=== PATIENT | female | born 1940 | race Caucasian/White ===

== ENCOUNTER 2017-08-26 10:00 | Outpatient (CLI) | payer MEDICARE, OTHER | END 2017-08-26 10:01 | disposition home or self-care (01) | LOC: BICRAD 10:00 | PROVIDERS: ATTEND Nurse Practitioner Family | DX: M47.816 Spondylosis without myelopathy or radiculopathy, lumbar region (principal); I70.90 Unspecified atherosclerosis; M46.86 Other specified inflammatory spondylopathies, lumbar region | CPT/HCPCS: 72100 ==

== ENCOUNTER 2017-10-06 13:54 | Outpatient (CLI) | payer MEDICARE, OTHER | END 2017-10-06 13:55 | disposition home or self-care (01) | LOC: BICMAMMO 13:54 | PROVIDERS: ATTEND Family Medicine | DX: Z12.31 Encounter for screening mammogram for malignant neoplasm of breast (principal); Z13.820 Encounter for screening for osteoporosis; M54.16 Radiculopathy, lumbar region; R92.1 Mammographic calcification found on diagnostic imaging of breast | CPT/HCPCS: 77063; 77067; 77080 ==

== ENCOUNTER 2017-10-11 12:12 | Outpatient (CLI) | payer MEDICARE, OTHER | END 2017-10-11 12:13 | disposition home or self-care (01) | LOC: BICMRI 12:12 | PROVIDERS: ATTEND Neurological Surgery | DX: M47.26 Other spondylosis with radiculopathy, lumbar region (principal); M48.061 Spinal stenosis, lumbar region without neurogenic claudication; M43.16 Spondylolisthesis, lumbar region; M47.22 Other spondylosis with radiculopathy, cervical region | CPT/HCPCS: 72141; 72148 ==

== ENCOUNTER 2018-04-26 10:00 | Inpatient (IN) | payer MEDICARE, OTHER ==
--- NOTE | 2018-04-27 11:40 | HP ---
HISTORY OF PRESENT ILLNESS: Ms. Garrison is back in the clinic following RIKY and ablation therapy that have not resulted in pain relief and she was wanting some more permanent relief. The patient states that she finished physical therapy a little while back and still does not have significant relief from her back pain. She states that she has limited walking about 100 yards and then she will just sit or bend forward if she needs to continue. Flexion of the lumbar spine offers some immediate relief of the leg discomfort bilaterally. REVIEW OF SYSTEMS: A 10-point review of systems has been completed and is negative other than stated above in the HPI. PAST MEDICAL HISTORY: Diabetes, hyperlipidemia, CAD- CABG, arthritis, depression, GERD, cystocele, rectocele, blood loss anemia, menopause, allergies , varicose veins, subdural hematoma in 2013, cataracts. PAST SURGICAL HISTORY: CABG by Dr. Duque/Emmanuel, bilateral tubal ligation, a dilation and curettage, hysterectomy, cataract surgery, colonoscopy, varicose veins, left femoral fracture. FAMILY HISTORY: Father is , diagnosed with hypertension, heart disease. Mother is , from cancer. SOCIAL HISTORY: The patient is a nonsmoker, does not use any other illicit drugs, does not drink alcohol. Currently lives alone, retired and , has 2 children. ALLERGIES: CEPHALEXIN, AMOXICILLIN, METFORMIN. PHYSICAL EXAMINATION: GENERAL: The patient is alert and oriented to person, place and time. Does not appear to be in any visible distress. HEENT: Head is normocephalic, atraumatic. Moist mucous membranes. Pupils are equal, round, reactive to light. Extraocular movements are intact. Hearing is intact. RESPIRATORY: Normal work of breathing on room air. CARDIAC: Regular rate and rhythm. Normal S1, S2. NEUROLOGIC: Gait and station is normal. MOTOR EXAM: There is no new weakness. The patient leans forward in about 15 degrees and walks with a cane, 5/5 strength bilateral iliopsoas, quadriceps, hamstrings, right TA and EHL. Sensory deficits bilaterally on anterior thighs when standing. Tender to palpation paraspinal muscles. NEUROLOGIC: Awake and alert. Cranial nerves II-XII are grossly intact. Speech is fluent, answers questions appropriately. IMAGING: MRI of the lumbar spine shows stenosis L3-L4 with lateral recess disease at L4-L5 and the spondylolisthesis L3-4. Flexion, extension x-rays show instability at L3-4. ASSESSMENT AND PLAN: Spondylolisthesis, lumbar stenosis. Dr. Alexander has offered surgery at L3-5 laminectomy with L3-4 T-lift.. INFORMED CONSENT: We have discussed indications, risks, benefits, alternatives , and expected results from surgery. The risks discussed included, but were not limited to bleeding, infection, CSF leak, nerve damage, weakness, incontinence, cauda equina injury, arachnoiditis, paralysis, ventilator dependence with trach dependence, loss of vision, hardware replacement, cardiopulmonary complications of anesthesia or . Long-term complications discussed included, but were not limited to degradation of surrounding disks and the need for further surgery. The patient states she understands the risks and is willing to move forward with surgery. CARMEN
[2018-04-29] MEDS ORDERED: Levofloxacin 500 mg/D5W 100 ml Premix Bag ONE (06:06)
[2018-04-29] MEDS ORDERED: Clindamycin/D5W 900 mg/50 ml Premix Bag ONE (06:06)
[2018-04-29] MEDS ORDERED: Sodium Chloride 0.9% 20 ML ONE (06:18)
[2018-04-29] MEDS ORDERED: Thrombin 5000 UNITS/5 ML VIAL ONE (06:18)
[2018-04-29] MEDS ORDERED: Bupivacaine HCl 0.5%/Epinephrine 1:200,000/PF 30 ml Vial ONE (06:18)
[2018-04-29] MEDS ORDERED: Fentanyl 100 MCG/2 ML VIAL ONE ×3 (06:39→11:23)
[2018-04-29] MEDS ORDERED: Hydrocortisone Sod Succ/PF 250 mg/2 ml Vial ONE (06:53)
[2018-04-29] MEDS ORDERED: Hydrocortisone Sod Succ/PF 100 mg/2 ml Vial ONE (06:54)
[2018-04-29] MEDS ORDERED: PHENYLEPHRINE-NS 100 MCG/ML 10 ML SYRINGE ONE ×2 (08:30→13:52)
[2018-04-29] MEDS ORDERED: Promethazine 25 MG TAB PO PRN (11:12)
[2018-04-29] MEDS ORDERED: Mag-Al 1200 mg/1200 mg/30 ML UDCUP PO PRN (11:12)
[2018-04-29] MEDS ORDERED: Milk Of Magnesia 30 ML UDCUP PO PRN (11:12)
[2018-04-29] MEDS ORDERED: diphenhydrAMINE 25 MG CAP PO PRN (11:12)
[2018-04-29] MEDS ORDERED: Zolpidem Tartrate 5 MG TAB PO PRN (11:12)
[2018-04-29] MEDS ORDERED: Acetaminophen/Codeine 30-300mg Tablet PO PRN (11:12)
[2018-04-29] MEDS ORDERED: diphenhydrAMINE 50 MG/ML VIAL IVP PRN (11:12)
[2018-04-29] MEDS ORDERED: Promethazine HCl 25 MG/ML VIAL IM PRN ×2 (11:12→11:18)
[2018-04-29] MEDS ORDERED: Bisacodyl 10 MG SUPP PR PRN (11:12)
[2018-04-29] MEDS ORDERED: Promethazine HCl 25 MG/ML VIAL SLOW IVP PRN (11:18)
[2018-04-29] MEDS ORDERED: Ondansetron HCl/PF 4 MG/2 ML Vial IVP PRN (11:18)
--- NOTE | 2018-04-29 11:20 | OP ---
DATE OF PROCEDURE: 04/29/2018 SURGEON: Joy Alexander M.D. PEDIATRIC UROLOGIST: Doris Browning PA-C. PREOPERATIVE INDICATION: Treat pain, prevent neurological deterioration. PREOPERATIVE DIAGNOSES: Lumbar stenosis and lumbar lateral recess stenosis with neurogenic claudicat ion at L3-4 and L4-5, spondylolisthesis at L4-5. POSTOPERATIVE DIAGNOSIS: Lumbar stenosis and lumbar lateral recess stenosis with neurogenic claudica tion at L3-4 and 5 spondylolisthesis at L4-5. OPERATIVE PROCEDURE: Decompressive laminectomy, medial facetectomy, foraminotomy for decompression L 3-4 and L4-L5, transforaminal lumbar interbody arthrodesis, placement of intervertebral biomechanical device and pedicle screw and mikala instrumentation L3-L4, posterior lateral arthrodesis L3-L4, local m orselized autograft, morselized Allograft. DRAIN NUMBER: Zero. DRAIN TYPE: None. MEDICATIONS: Clindamycin 900 mg IV and Levaquin 500 mg IV. OPERATIVE DICTATION: The patient was brought to the operating room. General endotracheal anesthesia was induced. The patient was positioned prone on the Charles frame with appropriate padding for sylvia st and hips. A lateral fluoro radiograph was used to plan our incision. The lumbar skin was sterile ly prepped and draped. We opened with a 10 blade knife and controlled bleeding with bipolar and mono polar cautery. We used monopolar cautery to dissect through subcutaneous tissues to the thoracodorsa l fascia. We incised the fascia in the midline and we reflected the paraspinal muscles off the spino us process and lamina at L3, L4, and L5. A self-retaining retractor was placed and a lateral fluoro radiograph confirmed the levels upon which we were operating. We then carried our dissection over th e L2-3 and L3-4 facet joints to identify the transverse processes of L3 and L4 bilaterally. We irrig ated with bacitracin irrigation. We used an Adson rongeur to remove the spinous processes of L3 and L4 and using Kerrison rongeur to fashion a laminectomy at L3-4, L4-5. We widened our laminectomy def ect until we had completely decompressed the dura. We were lateral enough on either side to be flush ed with the pedicles by performing medial facetectomies. We performed foraminotomies over the exitin g L4 and L5 nerve roots. When our decompression was secured, we turned our attention to arthrodesis at the site of spondylolisthesis. We removed the entire facet joint at L3-4 on the right side. With this newfound access through the f oramen, we entered the intervertebral space. We removed disk contents using curettes and rongeurs. We used a bone rasp to prepare the endplates for grafting and to measure the height of the interspace to 10 mm. A 10 mm PEEK intervertebral graft was brought into the field. Laminectomy bone was clean ed of its soft tissue attachments on the back table, morselized and added to demineralized bone matri x to form our fusion substrate. The substrate was packed into the PEEK graft and the interbody devic e was advanced into the interspace under radiographic guidance to the appropriate depth. We turned o ur attention to pedicle screw placement. Using bony anatomic landmarks, palpation of the medial portion of the pedicles, and a lateral fluoro radiograph as a guide, we chose entry points for pedicle screws at L3 and L4. Using a bone awl, we a dvanced it through the pedicles into the vertebral bodies. We tapped the trajectories and then probe d them. We found them completely encased in bone. We placed 6.5 mm diameter screws through the pedi cles into the vertebral bodies at L3 and L4. A 360 degree image set was generated with our isocentri c C-arm. This confirmed adequate positioning of our pedicle screw instrumentation. We then irrigate d copiously with bacitracin irrigation. We placed rods down in the screw heads and caps over the mikala s. We compressed across the interspace to keep the interbody graft in place and then tightened the c aps using a [id number] mechanism to adequate tightness. We decorticated the transverse pr ocesses of L3 and L4 bilaterally and over the decorticated bone we left demineralized bone matrix and morselized autograft as our posterolateral fusion substrate. We then controlled bleeding with gentl e bipolar cautery. We infused local anesthetic in the paraspinal muscles. We closed the wound in an atomic layers and applied a sterile dressing. This was a clean case with no contamination.
[2018-04-29] MEDS ORDERED: Ondansetron PF 4 MG/2 ML Vial ONE ×2 (11:26→13:52)
[2018-04-29 12:52] VITALS: BMI 32.5
[2018-04-29] MEDS: Acetaminophen/Codeine 30-300mg Tablet PO PRN ×2 (13:14→17:59)
[2018-04-29] MEDS: tiZANidine HCl 4 MG TAB PO PRN (13:15)
[2018-04-29] MEDS: Morphine 2 MG/ML SYRINGE SLOW IVP PRN ×3 (13:48→17:04)
[2018-04-29] MEDS ORDERED: PROPOFOL 200 MG/20 ML VIAL ONE (13:52)
[2018-04-29] MEDS ORDERED: Dexamethasone 20 MG/5 ML VIAL ONE (13:52)
[2018-04-29] MEDS ORDERED: Lidocaine 1% PF 5 ML VIAL ONE (13:52)
[2018-04-29] MEDS ORDERED: Glycopyrrolate 0.2 MG/ML 5 ML SYRINGE ONE (13:52)
[2018-04-29] MEDS ORDERED: ePHEDrine/0.9% NaCl/PF SYRINGE 50 mg/10 ml ONE (13:52)
[2018-04-29] MEDS ORDERED: Clindamycin/D5W 900 MG in Premix Bag 1 BAG IVPB SCH (14:00)
[2018-04-29] MEDS: Polyethylene Glycol OPTH DROP 15 ML BOT EA EYE SCH ×2 (14:50→17:57)
[2018-04-29] MEDS: Clindamycin/D5W 900 MG in Premix Bag 1 BAG IVPB SCH ×2 (14:50→20:35)
--- NOTE | 2018-04-29 16:00 | PDOC.PN ---
- Subjective Encounter Start Date: 04/29/18 Encounter Start Time: 16:00 Subjective: no sob or chest pain or palp -: just had some liq post op -: c/o pain in the lower back operated area - Objective MAR Reviewed: Yes Vital Signs & Weight: Vital Signs (12 hours) Temp Pulse Resp BP Pulse Ox 04/29/18 12:15 97.0 F L 73 18 150/70 H 98 Weight Weight 195 lb 3.2 oz Additional Labs: Accuchecks 04/29/18 06:18 POC Glucose 146 H Phys Exam - Physical Examination HEENT: PERRLA, sclera anicteric Neck: no JVD, supple Respiratory: no wheezing, no rales Cardiovascular: RRR, no significant murmur Gastrointestinal: soft, non-tender, no distention, positive bowel sounds Musculoskeletal: no edema, pulses present Neurological: non-focal, moves all 4 limbs Dx/Plan (1) S/P laminectomy Code(s): Z98.890 - OTHER SPECIFIED POSTPROCEDURAL STATES Status: Acute Comment: L3-4, 4-5, 04/29/2018 (2) CAD (coronary artery disease) Code(s): I25.10 - ATHSCL HEART DISEASE OF [place] CORONARY ARTERY W/O ANG PCTRS Status: Chronic Qualifiers: Coronary Disease-Associated Artery/Lesion type: bypass graft [place] vs. transplanted heart: [place] heart Associated angina: without angina Qualified Code(s): I25.810 - Atherosclerosis of coronary artery bypass graft(s) without angina pectoris (3) CKD (chronic kidney disease) stage 3, GFR 30-59 ml/min Code(s): N18.3 - CHRONIC KIDNEY DISEASE, STAGE 3 (MODERATE) Status: Chronic (4) DM2 (diabetes mellitus, type 2) Status: Chronic Qualifiers: Diabetes mellitus nursing home insulin use: with terminal press operator use Diabetes mellitus complication status: with unspecified complications Qualified Code(s) : E11.8 - Type 2 diabetes mellitus with unspecified complications; Z79.4 - residential (current) use of insulin (5) Dyslipidemia Code(s): E78.5 - HYPERLIPIDEMIA, UNSPECIFIED Status: Chronic (6) HTN (hypertension) Code(s): I10 - ESSENTIAL (PRIMARY) HYPERTENSION Status: Chronic Qualifiers: Hypertension type: essential hypertension (7) Macrocytic anemia Code(s): D53.9 - NUTRITIONAL ANEMIA, UNSPECIFIED Status: Chronic - Plan post op recovering well -: continue levemir dose from am, is still groggy may not eat much tonight -: on lopressor, pitavastatin, cozaar -: pain meds per nsx adv -: PT/OT to mobilize per nsx adv, will f/u * . Review of Systems - Medications/Allergies Allergies/Adverse Reactions: Allergies Allergy/AdvReac Type Severity Reaction Status Date / Time amoxicillin [Amoxicillin] Allergy Mild Rash Verified 04/26/18 10:20 cephalexin [Cephalexin] Allergy Mild Rash Verified 04/26/18 10:20 darifenacin hydrobromide Allergy LEG CRAMPS Verified 04/26/18 10:20 [From Enablex] metformin Allergy severe Verified 04/26/18 10:20 diarrhea Penicillins Allergy Verified 04/29/18 13:00 solifenacin [From Vesicare] Allergy Verified 04/26/18 10:20 tolterodine tartrate Allergy LEG CRAMPS Verified 04/26/18 10:20 [From Detrol] Hydralazine IV AdvReac Uncoded 04/26/18 10:20 Medications: Current Medications Acetaminophen (Tylenol) 650 mg PO Q4H PRN PRN Reason: Headache/Fever or Pain 1-3 Acetaminophen/Codeine Phosphate (Tylenol #3) 1 tab PO Q3H PRN PRN Reason: Mild Pain (1-3) 2ND LINE Acetaminophen/Codeine Phosphate (Tylenol #3) 2 tab PO Q3H PRN PRN Reason: Moderate Pain (4-6) Last Admin: 04/29/18 13:14 Dose: 2 tab Al Hydroxide/Mg Hydroxide (Maalox) 30 ml PO Q4H PRN PRN Reason: Indigestion Bisacodyl (Dulcolax) 10 mg MI Q12H PRN PRN Reason: Constipation Coenzyme Q10 (Coenzyme Q10) 100 mg PO BID [facility] Diphenhydramine HCl (Benadryl) 25 mg IVP Q6H PRN PRN Reason: Itching Diphenhydramine HCl (Benadryl) 25 mg PO Q6H PRN PRN Reason: Itching Sodium Chloride (Normal Saline 0.9%) 1,000 mls @ 75 mls/hr IV .[id number] [facility]RAVIND Clindamycin Phosphate/Dextrose (900 mg/ Device) 50 mls @ 100 mls/hr IVPB Q8HR [facility] Stop: 04/29/18 22:29 Last Admin: 04/29/18 14:50 Dose: 50 mls Insulin Glargine 58 units/ (Miscellaneous Medication) 0.58 mls @ 0 mls/hr SC QAM [facility] Levofloxacin (Levaquin) 500 mg PO 0600 [facility] Stop: 05/10/18 06:01 Losartan Potassium (Cozaar) 25 mg PO QAM [facility] Magnesium Hydroxide (Milk Of Magnesium) 30 ml PO Q12H PRN PRN Reason: Constipation Metoprolol Tartrate (Lopressor) 50 mg PO BID [facility] Morphine Sulfate (Morphine) 2 mg SLOW IVP Q1H PRN PRN Reason: Moderate Breakthrough Pain Last Admin: 04/29/18 14:58 Dose: 2 mg Dulaglutide [ (Trulicity] 1.5 Mg) 1 each SC Q7D@0900 [facility] Icosapent Ethyl [ (Vascepa] Tab) 2 each PO BID [facility] Pitavastatin Calcium ([Livalo] 1 Tab) 1 each PO HS [facility] Promethazine HCl (Phenergan) 12.5 mg PO Q4H PRN PRN Reason: Nausea/Vomiting Promethazine HCl (Phenergan) 12.5 mg IM Q4H PRN PRN Reason: Nausea/Vomiting Propylene Glycol (Systane Opth Drop 15ml Bot) 1 drop EA EYE QID [facility] Last Admin: 04/29/18 14:50 Dose: 1 drop Sodium Chloride (Flush - Normal Saline) 10 ml IVF PRN PRN PRN Reason: Saline Flush Last Admin: 04/29/18 13:47 Dose: 10 ml Tizanidine HCl (Zanaflex) 4 mg PO Q6H PRN PRN Reason: Muscle Spasm Last Admin: 04/29/18 13:15 Dose: 4 mg Zolpidem Tartrate (Ambien) 5 mg PO HSPRN PRN PRN Reason: Insomnia
[2018-04-29] MEDS: Sodium Chloride 0.9% 1,000 ML IV SCH (18:29)
[2018-04-29] MEDS: Ubidecarenone 50 MG CAP PO SCH (20:36)
[2018-04-29] MEDS: Metoprolol Tartrate 25 MG TAB PO SCH (20:38)
[2018-04-29] MEDS ORDERED: Dextrose 50% Abboject 50 ML SYRINGE IVP PRN (20:40)
[2018-04-29] MEDS ORDERED: Insulin Regular 300 UNITS/3 ML VIAL SC PRN (20:40)
[2018-04-29] MEDS ORDERED: Dextrose 5% in Water 1,000 ML IV PRN (20:40)
[2018-04-29] MEDS ORDERED: Insulin Glargine 45 UNITS in Pre-Filled Syringe 1 EACH SC SCH (21:00)
[2018-04-29] MEDS ORDERED: PITAVASTATIN CALCIUM PO SCH (21:00)
[2018-04-29] MEDS ORDERED: ICOSAPENT ETHYL PO SCH (21:00)
[2018-04-29] MEDS ORDERED: Non-Formulary Item 1 EACH (Levemir Flexpen [Levemir Flexpen] 45 UNIT) SC SCH (21:00)
[2018-04-29] MEDS ORDERED: LEVEMIR 100 UNIT/ML SC SCH (22:45)
[2018-04-29] MEDS ORDERED: Dulaglutide [Trulicity] 1.5 MG SC SCH (23:00)
[2018-04-30] MEDS: Sodium Chloride 0.9% 1,000 ML IV SCH ×2 (00:46→21:32)
[2018-04-30] MEDS ORDERED: Temazepam 15 MG CAP PO PRN (00:46)
[2018-04-30] MEDS: Polyethylene Glycol OPTH DROP 15 ML BOT EA EYE SCH ×5 (00:47→21:24)
[2018-04-30] MEDS: Acetaminophen/Codeine 30-300mg Tablet PO PRN ×2 (02:16→06:39)
[2018-04-30] MEDS: tiZANidine HCl 4 MG TAB PO PRN (06:46)
[2018-04-30] MEDS: HumaLOG 300 UNITS/3 ML VIAL SC PRN ×3 (06:52→16:22)
[2018-04-30] MEDS ORDERED: Insulin Glargine 58 UNITS in Pre-Filled Syringe 1 EACH SC SCH (09:00)
[2018-04-30] MEDS ORDERED: Losartan 25 MG TAB PO SCH (09:00)
[2018-04-30] MEDS ORDERED: INSULIN DETEMIR SC SCH (09:00)
[2018-04-30] MEDS: LEVEMIR 100 UNIT/ML SC SCH ×2 (09:33→21:23)
[2018-04-30] MEDS: Ubidecarenone 50 MG CAP PO SCH ×2 (09:33→21:22)
--- NOTE | 2018-04-30 09:57 | CON ---
DATE OF CONSULTATION: 04/30/2018 Ms. Garrison is doing reasonably well postoperatively. Her progress is quite slow given her age, medic al comorbidities, but seems to be reasonably on track. Currently, her systolic blood pressure is mar ginal at 98 and so physical therapy is holding off on ambulating her at this time and a fluid bolus i s underway. She was, however, able to walk some yesterday. Medicine is helping with her diabetes ma nagement with blood pressures. We will continue with mobilization and management of her medical issues through the weekend.
--- NOTE | 2018-04-30 11:25 | PDOC.PN ---
- Subjective Encounter Start Date: 04/30/18 Encounter Start Time: 08:15 Subjective: no sob, is eating her breakfast -: family at bedside -: didn't sleep well last night - Objective MAR Reviewed: Yes Vital Signs & Weight: Vital Signs (12 hours) Temp Pulse Resp BP Pulse Ox 04/30/18 08:00 98.1 F 82 12 94/55 L 98 04/30/18 04:20 97.9 F 82 16 102/62 98 04/30/18 00:33 98.2 F 90 16 108/64 96 04/30/18 00:16 97 Weight Weight 195 lb 3.2 oz I&O: 04/29/18 04/30/18 05/01/18 06:59 06:59 05:59 Intake Total 2736.25 Output Total 350 Balance 2386.25 Additional Labs: Accuchecks 04/30/18 04/30/18 04/29/18 05:36 00:25 21:14 POC Glucose 276 H 329 H 370 H 04/29/18 20:31 POC Glucose 366 H Phys Exam - Physical Examination HEENT: PERRLA, sclera anicteric Neck: no JVD, supple Respiratory: no wheezing, no rales Cardiovascular: RRR, no significant murmur Gastrointestinal: soft, non-tender, positive bowel sounds Musculoskeletal: no edema, pulses present Neurological: non-focal, moves all 4 limbs Dx/Plan (1) S/P laminectomy Code(s): Z98.890 - OTHER SPECIFIED POSTPROCEDURAL STATES Status: Acute Comment: L3-4, 4-5, 04/29/2018 (2) CAD (coronary artery disease) Code(s): I25.10 - ATHSCL HEART DISEASE OF [place] CORONARY ARTERY W/O ANG PCTRS Status: Chronic Qualifiers: Coronary Disease-Associated Artery/Lesion type: bypass graft [place] vs. transplanted heart: [place] heart Associated angina: without angina Qualified Code(s): I25.810 - Atherosclerosis of coronary artery bypass graft(s) without angina pectoris (3) CKD (chronic kidney disease) stage 3, GFR 30-59 ml/min Code(s): N18.3 - CHRONIC KIDNEY DISEASE, STAGE 3 (MODERATE) Status: Chronic (4) DM2 (diabetes mellitus, type 2) Status: Chronic Qualifiers: Diabetes mellitus fdc insulin use: with terminal superintendent use Diabetes mellitus complication status: with unspecified complications Qualified Code(s) : E11.8 - Type 2 diabetes mellitus with unspecified complications; Z79.4 - halfway (current) use of insulin (5) Dyslipidemia Code(s): E78.5 - HYPERLIPIDEMIA, UNSPECIFIED Status: Chronic (6) HTN (hypertension) Code(s): I10 - ESSENTIAL (PRIMARY) HYPERTENSION Status: Chronic Qualifiers: Hypertension type: essential hypertension (7) Macrocytic anemia Code(s): D53.9 - NUTRITIONAL ANEMIA, UNSPECIFIED Status: Chronic - Plan 250ml NS bolus, continue iv hydration after that until her sbp is >120 -: is back on home dose levemir and had one dose of trulicity yesterday -: gets diarrhea with lantus and may use home levemir -: hold lopressor and cozaar until BP improves -: to start amb with PT once sbp is >110. * . Limit benadry and high dose repeated narcotics to avoid hypotension and post op delerium. d/w family at bedside. Will need rehab or swing bed for dc plan Review of Systems - Medications/Allergies Allergies/Adverse Reactions: Allergies Allergy/AdvReac Type Severity Reaction Status Date / Time amoxicillin [Amoxicillin] Allergy Mild Rash Verified 04/26/18 10:20 cephalexin [Cephalexin] Allergy Mild Rash Verified 04/26/18 10:20 darifenacin hydrobromide Allergy LEG CRAMPS Verified 04/26/18 10:20 [From Enablex] metformin Allergy severe Verified 04/26/18 10:20 diarrhea Penicillins Allergy Verified 04/29/18 13:00 solifenacin [From Vesicare] Allergy Verified 04/26/18 10:20 tolterodine tartrate Allergy LEG CRAMPS Verified 04/26/18 10:20 [From Detrol] Hydralazine IV AdvReac Uncoded 04/26/18 10:20 Medications: Current Medications Acetaminophen (Tylenol) 650 mg PO Q4H PRN PRN Reason: Headache/Fever or Pain 1-3 Acetaminophen/Codeine Phosphate (Tylenol #3) 1 tab PO Q3H PRN PRN Reason: Mild Pain (1-3) 2ND LINE Acetaminophen/Codeine Phosphate (Tylenol #3) 2 tab PO Q3H PRN PRN Reason: Moderate Pain (4-6) Last Admin: 04/30/18 06:39 Dose: 2 tab Al Hydroxide/Mg Hydroxide (Maalox) 30 ml PO Q4H PRN PRN Reason: Indigestion Albuterol/Ipratropium (Duoneb) 3 ml NEB [id number] [facility] Last Admin: 04/29/18 23:14 Dose: 3 ml Bisacodyl (Dulcolax) 10 mg AR Q12H PRN PRN Reason: Constipation Coenzyme Q10 (Coenzyme Q10) 100 mg PO BID [facility] Last Admin: 04/30/18 09:33 Dose: 100 mg Dextrose/Water (Dextrose 50%) 25 gm IVP PRN PRN PRN Reason: HYPOGLYCEMIA PROTOCOL Diphenhydramine HCl (Benadryl) 25 mg IVP Q6H PRN PRN Reason: Itching Diphenhydramine HCl (Benadryl) 25 mg PO Q6H PRN PRN Reason: Itching Glucagon (Glucagon) 1 mg IM PRN PRN PRN Reason: HYPOGLYCEMIA PROTOCOL Sodium Chloride (Normal Saline 0.9%) 1,000 mls @ 75 mls/hr IV .[id number] [facility] Last Admin: 04/30/18 00:46 Dose: 1,000 mls Dextrose/Water (D5w) 1,000 mls @ 0 mls/hr IV INF PRN PRN Reason: HYPOGLYCEMIA PROTOCOL Sodium Chloride (Normal Saline 0.9%) 250 mls @ 999 mls/hr IV .Q16M [facility] Stop: 04/30/18 11:45 Insulin Human Lispro (Humalog) 0 units SC .MILD SLIDING SCALE PRN PRN Reason: Mild Correctional Scale Last Admin: 04/30/18 06:52 Dose: 4 unit Insulin Human Lispro (Humalog) 0 units SC .BEDTIME SLIDING SC PRN PRN Reason: Bedtime Correctional Scale Levofloxacin (Levaquin) 500 mg PO 0600 [facility] Stop: 05/10/18 06:01 Last Admin: 04/30/18 06:22 Dose: 500 mg Magnesium Hydroxide (Milk Of Magnesium) 30 ml PO Q12H PRN PRN Reason: Constipation Morphine Sulfate (Morphine) 2 mg SLOW IVP Q1H PRN PRN Reason: Moderate Breakthrough Pain Last Admin: 04/29/18 17:04 Dose: 2 mg Dulaglutide [ (Trulicity] 1.5 Mg) 1 each SC Q7D [facility] Last Admin: 04/29/18 22:57 Dose: 1 each Icosapent Ethyl [ (Vascepa] Tab) 2 each PO BID [facility] Pitavastatin Calcium ([Livalo] 1 Tab) 1 each PO HS [facility] Levemir (Insulin Detemir) Vial 100 Units/Ml 0 each SC HS [facility]RAVIND Levemir (Insulin Detemir) Vial 100 Units/Ml 0 each SC QAM [facility] Last Admin: 04/30/18 09:33 Dose: 1 each Promethazine HCl (Phenergan) 12.5 mg PO Q4H PRN PRN Reason: Nausea/Vomiting Promethazine HCl (Phenergan) 12.5 mg IM Q4H PRN PRN Reason: Nausea/Vomiting Propylene Glycol (Systane Opth Drop 15ml Bot) 1 drop EA EYE QID [facility] Last Admin: 04/30/18 09:32 Dose: 1 drop Sodium Chloride (Flush - Normal Saline) 10 ml IVF PRN PRN PRN Reason: Saline Flush Last Admin: 04/29/18 17:04 Dose: 10 ml Temazepam (Restoril) 15 mg PO HSPRN PRN PRN Reason: Insomnia Last Admin: 04/30/18 00:50 Dose: 15 mg Tizanidine HCl (Zanaflex) 4 mg PO Q6H PRN PRN Reason: Muscle Spasm Last Admin: 04/30/18 06:46 Dose: 4 mg Zolpidem Tartrate (Ambien) 5 mg PO HSPRN PRN PRN Reason: Insomnia
[2018-04-30] MEDS ORDERED: Sodium Chloride 0.9% 250 ML IV SCH (11:30)
[2018-04-30] MEDS: Metoprolol Tartrate 25 MG TAB PO SCH (13:33)
[2018-04-30] MEDS: Acetaminophen 325 MG TAB PO PRN (16:15)
[2018-05-01] MEDS: Sodium Chloride 0.9% 1,000 ML IV SCH ×2 (07:53→19:06)
[2018-05-01] MEDS: LEVEMIR 100 UNIT/ML SC SCH ×2 (08:58→20:33)
[2018-05-01] MEDS: Polyethylene Glycol OPTH DROP 15 ML BOT EA EYE SCH ×4 (08:59→20:33)
[2018-05-01] MEDS: Ubidecarenone 50 MG CAP PO SCH ×2 (08:59→20:32)
[2018-05-01] MEDS ORDERED: Promethazine HCl 25 MG/ML VIAL IVPB PRN (09:03)
[2018-05-01] MEDS ORDERED: Promethazine HCl 25 MG/ML VIAL SLOW IVP PRN (09:23)
--- NOTE | 2018-05-01 09:46 | PDOC.PN ---
- Subjective Encounter Start Date: 05/01/18 Encounter Start Time: 08:45 Subjective: c/o vomitingx1 and feeling nauseous -: no abd pain -: stood up with PT yesterday - Objective MAR Reviewed: Yes Vital Signs & Weight: Vital Signs (12 hours) Temp Pulse Resp BP Pulse Ox 05/01/18 07:42 98.4 F 110 H 14 102/59 L 94 L 05/01/18 06:50 95 05/01/18 06:47 107 H 20 95 05/01/18 04:00 98 F 90 16 104/55 L 94 L 05/01/18 01:49 CDT 102 H 18 93 L 05/01/18 00:00 98.5 F 95 16 105/60 93 L Weight Weight 195 lb 3.2 oz I&O: 04/30/18 05/01/18 05/02/18 07:59 06:59 06:59 Intake Total Output Total Balance Additional Labs: Accuchecks 05/01/18 04/30/18 04/30/18 06:06 20:53 15:42 POC Glucose 216 H 151 H 156 H 04/30/18 11:29 POC Glucose 197 H Phys Exam - Physical Examination HEENT: PERRLA, moist MMs Neck: no JVD, supple Respiratory: no wheezing, no rales Cardiovascular: RRR, no significant murmur Gastrointestinal: soft, non-tender, positive bowel sounds Musculoskeletal: pulses present Neurological: non-focal, moves all 4 limbs Psychiatric: A&O x 3 Dx/Plan (1) S/P laminectomy Code(s): Z98.890 - OTHER SPECIFIED POSTPROCEDURAL STATES Status: Acute Comment: L3-4, 4-5, 04/29/2018 (2) CAD (coronary artery disease) Code(s): I25.10 - ATHSCL HEART DISEASE OF [place] CORONARY ARTERY W/O ANG PCTRS Status: Chronic Qualifiers: Coronary Disease-Associated Artery/Lesion type: bypass graft [place] vs. transplanted heart: [place] heart Associated angina: without angina Qualified Code(s): I25.810 - Atherosclerosis of coronary artery bypass graft(s) without angina pectoris (3) CKD (chronic kidney disease) stage 3, GFR 30-59 ml/min Code(s): N18.3 - CHRONIC KIDNEY DISEASE, STAGE 3 (MODERATE) Status: Chronic (4) DM2 (diabetes mellitus, type 2) Status: Chronic Qualifiers: Diabetes mellitus nursing home insulin use: with nursing home use Diabetes mellitus complication status: with unspecified complications Qualified Code(s) : E11.8 - Type 2 diabetes mellitus with unspecified complications; Z79.4 - terminal superintendent (current) use of insulin (5) Dyslipidemia Code(s): E78.5 - HYPERLIPIDEMIA, UNSPECIFIED Status: Chronic (6) HTN (hypertension) Code(s): I10 - ESSENTIAL (PRIMARY) HYPERTENSION Status: Chronic Qualifiers: Hypertension type: essential hypertension (7) Macrocytic anemia Code(s): D53.9 - NUTRITIONAL ANEMIA, UNSPECIFIED Status: Chronic - Plan dm is better controlled -: hypotension is better -: PT to start ambulating as tolerated per nsx adv -: phenergan x1 dose, bowel regimen -: will need swing/rehab for dc plan * . continue home dose insulin regimen, off antihtn meds. D/w family at bedside. Review of Systems - Medications/Allergies Allergies/Adverse Reactions: Allergies Allergy/AdvReac Type Severity Reaction Status Date / Time amoxicillin [Amoxicillin] Allergy Mild Rash Verified 04/26/18 10:20 cephalexin [Cephalexin] Allergy Mild Rash Verified 04/26/18 10:20 darifenacin hydrobromide Allergy LEG CRAMPS Verified 04/26/18 10:20 [From Enablex] metformin Allergy severe Verified 04/26/18 10:20 diarrhea Penicillins Allergy Verified 04/29/18 13:00 solifenacin [From Vesicare] Allergy Verified 04/26/18 10:20 tolterodine tartrate Allergy LEG CRAMPS Verified 04/26/18 10:20 [From Detrol] Hydralazine IV AdvReac Uncoded 04/26/18 10:20 Medications: Current Medications Acetaminophen (Tylenol) 650 mg PO Q4H PRN PRN Reason: Headache/Fever or Pain 1-3 Last Admin: 04/30/18 16:15 Dose: 650 mg Acetaminophen/Codeine Phosphate (Tylenol #3) 1 tab PO Q3H PRN PRN Reason: Mild Pain (1-3) 2ND LINE Last Admin: 04/30/18 16:14 Dose: 1 tab Acetaminophen/Codeine Phosphate (Tylenol #3) 2 tab PO Q3H PRN PRN Reason: Moderate Pain (4-6) Last Admin: 04/30/18 06:39 Dose: 2 tab Al Hydroxide/Mg Hydroxide (Maalox) 30 ml PO Q4H PRN PRN Reason: Indigestion Albuterol/Ipratropium (Duoneb) 3 ml NEB [id number] [facility] Last Admin: 05/01/18 06:47 Dose: 3 ml Bisacodyl (Dulcolax) 10 mg OR Q12H PRN PRN Reason: Constipation Coenzyme Q10 (Coenzyme Q10) 100 mg PO BID [facility] Last Admin: 05/01/18 08:59 Dose: 100 mg Dextrose/Water (Dextrose 50%) 25 gm IVP PRN PRN PRN Reason: HYPOGLYCEMIA PROTOCOL Diphenhydramine HCl (Benadryl) 25 mg IVP Q6H PRN PRN Reason: Itching Diphenhydramine HCl (Benadryl) 25 mg PO Q6H PRN PRN Reason: Itching Glucagon (Glucagon) 1 mg IM PRN PRN PRN Reason: HYPOGLYCEMIA PROTOCOL Sodium Chloride (Normal Saline 0.9%) 1,000 mls @ 75 mls/hr IV .[id number] [facility] Last Admin: 05/01/18 07:53 Dose: Not Given Dextrose/Water (D5w) 1,000 mls @ 0 mls/hr IV INF PRN PRN Reason: HYPOGLYCEMIA PROTOCOL Insulin Human Lispro (Humalog) 0 units SC .MILD SLIDING SCALE PRN PRN Reason: Mild Correctional Scale Last Admin: 04/30/18 16:22 Dose: 2 unit Insulin Human Lispro (Humalog) 0 units SC .BEDTIME SLIDING SC PRN PRN Reason: Bedtime Correctional Scale Levofloxacin (Levaquin) 500 mg PO 0600 [facility] Stop: 05/10/18 06:01 Last Admin: 05/01/18 06:53 Dose: 500 mg Magnesium Hydroxide (Milk Of Magnesium) 30 ml PO Q12H PRN PRN Reason: Constipation Morphine Sulfate (Morphine) 2 mg SLOW IVP Q1H PRN PRN Reason: Moderate Breakthrough Pain Last Admin: 04/29/18 17:04 Dose: 2 mg Dulaglutide [ (Trulicity] 1.5 Mg) 1 each SC Q7D [facility] Last Admin: 04/29/18 22:57 Dose: 1 each Icosapent Ethyl [ (Vascepa] Tab) 2 each PO BID [facility] Pitavastatin Calcium ([Livalo] 1 Tab) 1 each PO HS [facility] Levemir (Insulin Detemir) Vial 100 Units/Ml 0 each SC HS [facility] Last Admin: 04/30/18 21:23 Dose: Not Given Levemir (Insulin Detemir) Vial 100 Units/Ml 0 each SC QAM [facility] Last Admin: 05/01/18 08:58 Dose: 1 each Promethazine HCl (Phenergan) 12.5 mg PO Q4H PRN PRN Reason: Nausea/Vomiting Promethazine HCl (Phenergan) 12.5 mg IM Q4H PRN PRN Reason: Nausea/Vomiting Promethazine HCl (Phenergan) 10 mg SLOW IVP PRN PRN PRN Reason: Nausea/Vomiting Stop: 05/01/18 12:00 Propylene Glycol (Systane Opth Drop 15ml Bot) 1 drop EA EYE QID [facility] Last Admin: 05/01/18 08:59 Dose: 1 drop Sodium Chloride (Flush - Normal Saline) 10 ml IVF PRN PRN PRN Reason: Saline Flush Last Admin: 04/29/18 17:04 Dose: 10 ml Temazepam (Restoril) 15 mg PO HSPRN PRN PRN Reason: Insomnia Last Admin: 04/30/18 00:50 Dose: 15 mg Tizanidine HCl (Zanaflex) 4 mg PO Q6H PRN PRN Reason: Muscle Spasm Last Admin: 04/30/18 06:46 Dose: 4 mg Zolpidem Tartrate (Ambien) 5 mg PO HSPRN PRN PRN Reason: Insomnia
[2018-05-01] MEDS: Acetaminophen 325 MG TAB PO PRN ×2 (10:56→20:33)
[2018-05-01 11:40] LABS: Lavender RECEIVED; Red RECEIVED
[2018-05-01 13:17] LABS: #Monocytes 0.9 thou/uL (0.11-0.59); #Neutrophils 5.6 thou/uL (1.40-6.50); %Eosinophils 0.6 % (0.0-10.0); %Lymphocytes 12.6 % (21.0-51.0); %Monocytes 11.6 % (0.0-10.0); %Neutrophils 75.1 % (42.0-75.0); Hemoglobin 9.3 g/dL (12.0-16.0); Mean Corpuscular Hemoglobin 33.7 pg (27.0-31.0); Platelet Count 183 thou/uL (130-400); RBC Distribution Width 12.7 % (11.5-14.5); Red Blood Cell (RBC) Count 2.76 mill/uL (4.20-5.40); White Blood Cell (WBC) Count 7.5 thou/uL (4.8-10.8)
[2018-05-01 13:30] LABS: ALT (SGPT) 22 U/L (8-55); AST (SGOT) 40 U/L (5-34); Albumin 3.1 g/dL (3.4-4.8); Alkaline Phosphatase 87 U/L (40-150); Anion Gap 15 mmol/L (10-20); BUN (Urea Nitrogen) 18 mg/dL (9.8-20.1); Bilirubin, Total 0.4 mg/dL (0.2-1.2); Calc. Creatinine Clearance 37 mL/min (70-130); Calcium 7.9 mg/dL (7.8-10.44); Carbon Dioxide 18 mmol/L (23-31); Chloride 106 mmol/L (98-107); Estimated GFR-MDRD 29; Glucose 212 mg/dL (83-110); Potassium 4.6 mmol/L (3.5-5.1); Protein, Total 6.1 g/dL (6.0-8.3); Sodium 134 mmol/L (136-145)
--- NOTE | 2018-05-01 19:20 | CON ---
DATE OF CONSULTATION: 05/01/2018 HISTORY OF PRESENT ILLNESS: Ms. Garrison is a woman who on 04/29/2018 underwent a laminectomy. She was vomiting this morning, received Phenergan and then became quite somnolent, was transferred to the Intermediate Care Unit. I was consulted because of her arrival in the Intermediate Care Unit. PAST MEDICAL HISTORY: 1. Remarkable for diabetes. 2. Lipid disorder. 3. Coronary artery bypass grafting in the past. 4. Arthritis. 5. Reflux disease. 6. History of cystocele and rectocele. 7. History of subdural hematoma in 2013. 8. History of tubal ligation. 9. Status post hysterectomy. 10. History of cataract surgery. 11. Varicose vein surgery in the past. 12. History of femur fracture in the past. FAMILY HISTORY: Positive for vascular disease, hypertension, and cancer. REVIEW OF SYSTEMS: Otherwise not accurately obtainable. ALLERGIES: There was an allergy reported to CEPHALOSPORIN, PENICILLIN, METFORMIN, PHENERGAN. SOCIAL HISTORY: She is nonsmoker and nondrinker. She is , has two children. PHYSICAL EXAMINATION: GENERAL: She is in no distress. Actually, when I saw her, she would awaken easily to touch. VITAL SIGNS: She is afebrile, heart rate is 110, respiratory rate 14, oximetry is 94 on 2 liters, blood pressure 132/70. HEAD AND NECK: Unremarkable. LUNGS: Clear. HEART: Regular rhythm. ABDOMEN: Soft and nontender. EXTREMITIES: Without clubbing, cyanosis, or edema. She moved all 4 extremities , but only slowly to command. She has not had a bowel movement she says since last . IMPRESSION: 1. Nausea and vomiting ? secondary to constipation versus pain medication. 2. Somnolence with Phenergan. This should be placed on her intolerance/ allergy list. By this afternoon, she should be awake enough to move back up to the surgical unit. 50 minute consult with 50% of time spent on unit coordinating care. CARMEN
[2018-05-01] MEDS: Docusate 100 MG CAP PO SCH (20:33)
--- NOTE | 2018-05-01 21:48 | PDOC.EVN ---
Event Note - Event Note Event Note: RN called - Temp 102.1. Will add blood cultures with CXR in AM.
[2018-05-02] MEDS: Acetaminophen 325 MG TAB PO PRN ×2 (00:50→11:49)
--- NOTE | 2018-05-02 07:28 | PRG ---
DATE OF SERVICE: 05/02/2018 I saw Marilee Garrison in the intermediate care unit bed this morning. She was transferred yesterday a fternoon after administration of Phenergan and resulted in some somnolence, from which she was hard t o arouse. Her vitals have been stable overnight and now she is awake and alert and talking appropria tely. She feels a heaviness and fatigue in her body, but she has good sensation and strength in the lower extremities. Her vitals now are stable. Fever has come down from 102.1 degrees Fahrenheit yes terday evening to 99.2 this morning. Blood pressures in the 120s. She is satting well on room air. I cannot find any motor deficits other than the deconditioning. Diffuse weakness that she has had f rom not being terribly active before the operation. There is no radiculopathic weakness that I can f ind. Today, we are going to have Ms. Garrison evaluated by our Medical and Critical Care teams, and if they feel she is safe for transfer back to the floor, then we will make that happen. We will have physica l therapy visit with her and start the process of having her evaluated for inpatient rehabilitation.
--- NOTE | 2018-05-02 09:11 | RAD ---
CHEST ONE VIEW: History: Fever. Comparison: September 2016 FINDINGS: New layering left pleural effusion. Left basilar airspace opacity. No pneumothorax. Right lung relati vely clear. IMPRESSION: New layering left effusion and basilar airspace opacity concerning for infection and peripneumonic ef fusion. Follow up recommended. POS: CET
[2018-05-02] MEDS ORDERED: Dexamethasone 4 mg/ml Vial SLOW IVP SCH (09:30)
[2018-05-02] MEDS: Polyethylene Glycol 3350 17 GM Packet PO SCH (10:10)
[2018-05-02] MEDS: Ubidecarenone 50 MG CAP PO SCH ×2 (10:11→20:25)
[2018-05-02] MEDS: Docusate 100 MG CAP PO SCH ×2 (10:12→20:26)
[2018-05-02] MEDS: Polyethylene Glycol OPTH DROP 15 ML BOT EA EYE SCH ×4 (10:17→20:26)
[2018-05-02] MEDS: HumaLOG 300 UNITS/3 ML VIAL SC PRN ×3 (11:50→20:29)
--- NOTE | 2018-05-02 12:17 | PDOC.PN ---
- Subjective Encounter Start Date: 05/02/18 Encounter Start Time: 08:00 Subjective: had fever overnight, no cough -: is alert and responds well to verbal questions -: had a bm this morning - Objective MAR Reviewed: Yes Vital Signs & Weight: Vital Signs (12 hours) Temp Pulse Resp BP Pulse Ox 05/02/18 08:00 98.3 F 109 H 16 115/51 L 100 05/02/18 07:34 95 05/02/18 07:32 110 H 18 95 05/02/18 04:00 99.2 F 96 18 125/49 L 96 Weight Weight 197 lb 8.547 oz I&O: 05/01/18 05/02/18 05/03/18 06:59 06:59 06:59 Intake Total 1380 Output Total 500 Balance 880 Result Diagrams: 05/01/18 10:33 05/01/18 10:33 Additional Labs: Accuchecks 05/02/18 05/02/18 05/01/18 11:32 05:28 20:32 POC Glucose 237 H 133 H 157 H 05/01/18 05/01/18 17:20 10:20 POC Glucose 147 H 240 H Phys Exam - Physical Examination HEENT: PERRLA, moist MMs Neck: no JVD, supple Respiratory: no wheezing, no rales Cardiovascular: RRR, no significant murmur Gastrointestinal: soft, non-tender, positive bowel sounds Musculoskeletal: no edema, pulses present Neurological: non-focal, moves all 4 limbs Psychiatric: normal affect, A&O x 3 Dx/Plan (1) S/P laminectomy Code(s): Z98.890 - OTHER SPECIFIED POSTPROCEDURAL STATES Status: Acute Comment: L3-4, 4-5, 04/29/2018 (2) CAD (coronary artery disease) Code(s): I25.10 - ATHSCL HEART DISEASE OF [place] CORONARY ARTERY W/O ANG PCTRS Status: Chronic Qualifiers: Coronary Disease-Associated Artery/Lesion type: bypass graft [place] vs. transplanted heart: [place] heart Associated angina: without angina Qualified Code(s): I25.810 - Atherosclerosis of coronary artery bypass graft(s) without angina pectoris (3) CKD (chronic kidney disease) stage 3, GFR 30-59 ml/min Code(s): N18.3 - CHRONIC KIDNEY DISEASE, STAGE 3 (MODERATE) Status: Chronic (4) DM2 (diabetes mellitus, type 2) Status: Chronic Qualifiers: Diabetes mellitus nursing home insulin use: with nursing home use Diabetes mellitus complication status: with unspecified complications Qualified Code(s) : E11.8 - Type 2 diabetes mellitus with unspecified complications; Z79.4 - termite technician (current) use of insulin (5) Dyslipidemia Code(s): E78.5 - HYPERLIPIDEMIA, UNSPECIFIED Status: Chronic (6) HTN (hypertension) Code(s): I10 - ESSENTIAL (PRIMARY) HYPERTENSION Status: Chronic Qualifiers: Hypertension type: essential hypertension (7) Macrocytic anemia Code(s): D53.9 - NUTRITIONAL ANEMIA, UNSPECIFIED Status: Chronic - Plan encourage po intake -: dc iv fluids, cxr reviewed -: is on levaquin -: PT to mobilize as tolerated -: may tx to medsur floor * . restart steroids, home meds on computer donot show her to be on steroids, office notes do. will need swing bed for dc plan. encourage po intake, home dose insulin may start antihtn meds if sbp is consistently above 130 x 3. Review of Systems - Medications/Allergies Allergies/Adverse Reactions: Allergies Allergy/AdvReac Type Severity Reaction Status Date / Time amoxicillin [Amoxicillin] Allergy Mild Rash Verified 04/26/18 10:20 cephalexin [Cephalexin] Allergy Mild Rash Verified 04/26/18 10:20 darifenacin hydrobromide Allergy LEG CRAMPS Verified 04/26/18 10:20 [From Enablex] metformin Allergy severe Verified 04/26/18 10:20 diarrhea Penicillins Allergy Verified 04/29/18 13:00 solifenacin [From Vesicare] Allergy Verified 04/26/18 10:20 tolterodine tartrate Allergy LEG CRAMPS Verified 04/26/18 10:20 [From Detrol] Hydralazine IV AdvReac Uncoded 04/26/18 10:20 Medications: Current Medications Acetaminophen (Tylenol) 650 mg PO Q4H PRN PRN Reason: Headache/Fever or Pain 1-3 Last Admin: 05/02/18 11:49 Dose: 650 mg Al Hydroxide/Mg Hydroxide (Maalox) 30 ml PO Q4H PRN PRN Reason: Indigestion Albuterol/Ipratropium (Duoneb) 3 ml NEB [id number] [facility] Last Admin: 05/02/18 07:32 Dose: 3 ml Bisacodyl (Dulcolax) 10 mg GA Q12H PRN PRN Reason: Constipation Coenzyme Q10 (Coenzyme Q10) 100 mg PO BID [facility] [place] Last Admin: 05/02/18 10:11 Dose: 100 mg Dexamethasone (Decadron) 2 mg PO BID [facility] [place] Stop: 05/05/18 21:01 Dextrose/Water (Dextrose 50%) 25 gm IVP PRN PRN PRN Reason: HYPOGLYCEMIA PROTOCOL Docusate Sodium (Colace) 100 mg PO BID [facility] [place] Last Admin: 05/02/18 10:12 Dose: 100 mg Glucagon (Glucagon) 1 mg IM PRN PRN PRN Reason: HYPOGLYCEMIA PROTOCOL Sodium Chloride (Normal Saline 0.9%) 1,000 mls @ 75 mls/hr IV .[id number] [facility] [place] Last Admin: 05/01/18 19:06 Dose: 1,000 mls Dextrose/Water (D5w) 1,000 mls @ 0 mls/hr IV INF PRN PRN Reason: HYPOGLYCEMIA PROTOCOL Insulin Human Lispro (Humalog) 0 units SC .MILD SLIDING SCALE PRN PRN Reason: Mild Correctional Scale Last Admin: 05/02/18 11:50 Dose: 3 unit Insulin Human Lispro (Humalog) 0 units SC .BEDTIME SLIDING SC PRN PRN Reason: Bedtime Correctional Scale Levofloxacin (Levaquin) 500 mg PO 0600 [facility] [place] Stop: 05/10/18 06:01 Last Admin: 05/02/18 05:12 Dose: 500 mg Magnesium Hydroxide (Milk Of Magnesium) 30 ml PO Q12H PRN PRN Reason: Constipation Morphine Sulfate (Morphine) 2 mg SLOW IVP Q1H PRN PRN Reason: Moderate Breakthrough Pain Last Admin: 04/29/18 17:04 Dose: 2 mg Dulaglutide [ (Trulicity] 1.5 Mg) 1 each SC Q7D [facility] [place] Last Admin: 04/29/18 22:57 Dose: 1 each Icosapent Ethyl [ (Vascepa] Tab) 2 each PO BID [facility] Pitavastatin Calcium ([Livalo] 1 Tab) 1 each PO HS [facility] Levemir (Insulin Detemir) Vial 100 Units/Ml 0 each SC HS [facility] Last Admin: 05/01/18 20:33 Dose: Not Given Levemir (Insulin Detemir) Vial 100 Units/Ml 0 each SC QAM [facility] Last Admin: 05/01/18 08:58 Dose: 1 each Polyethylene Glycol (Miralax) 17 gm PO DAILY [facility] [place] Last Admin: 05/02/18 10:10 Dose: Not Given Propylene Glycol (Systane Opth Drop 15ml Bot) 1 drop EA EYE QID [facility] [place] Last Admin: 05/02/18 11:52 Dose: 1 drop Sodium Chloride (Flush - Normal Saline) 10 ml IVF PRN PRN PRN Reason: Saline Flush Last Admin: 04/29/18 17:04 Dose: 10 ml Tizanidine HCl (Zanaflex) 4 mg PO Q6H PRN PRN Reason: Muscle Spasm Last Admin: 04/30/18 06:46 Dose: 4 mg
[2018-05-02] MEDS: LEVEMIR 100 UNIT/ML SC SCH ×2 (12:32→20:29)
[2018-05-03] MEDS: HumaLOG 300 UNITS/3 ML VIAL SC PRN ×4 (07:01→21:40)
--- NOTE | 2018-05-03 07:06 | PRG ---
DATE OF SERVICE: 05/03/2018 Ms. Garrison is out of the Intermediate Care Unit and back in the neurosurgical floor. Her response to Phenergan was alarming and it should be added to her list of allergies. Ms. Garrison feels a bit better this morning than yesterday. We consulted case management and rehab sc reening to see if she is a good candidate for rehab. We have not heard back whether she was accepted . No other events were reported. The vital signs are stable. T-max yesterday was 100.3 degrees Fah renheit, but her fever curve is coming down nicely. On examination, there is good strength in the lo wer extremities and sensation as well. There are no new deficits. My plan for Ms. Garrison is to discharge to inpatient rehabilitation. Those arrangements can be made a ny time. We will confirm with the medical team that she is safe for discharge and then transfer her over.
[2018-05-03] MEDS: Docusate 100 MG CAP PO SCH ×2 (08:37→21:00)
[2018-05-03] MEDS: Polyethylene Glycol 3350 17 GM Packet PO SCH (08:37)
[2018-05-03] MEDS: Acetaminophen 325 MG TAB PO PRN (08:37)
[2018-05-03] MEDS: Dexamethasone 1 MG TAB PO SCH ×2 (08:37→20:59)
[2018-05-03] MEDS: Ubidecarenone 50 MG CAP PO SCH ×2 (08:37→21:00)
[2018-05-03] MEDS: LEVEMIR 100 UNIT/ML SC SCH ×2 (08:39→21:41)
--- NOTE | 2018-05-03 11:31 | PDOC.PN ---
- Subjective Encounter Start Date: 05/03/18 Encounter Start Time: 08:45 Subjective: oriented well, no sob -: ate her breakfast, no nausea cough or urinary burning/freq - Objective MAR Reviewed: Yes Vital Signs & Weight: Vital Signs (12 hours) Temp Pulse Resp BP Pulse Ox 05/03/18 07:23 97.5 F L 91 20 128/67 96 05/03/18 06:45 89 18 96 05/03/18 04:00 98.3 F 97 16 104/63 97 05/02/18 23:49 96 18 95 Weight Weight 197 lb 8.547 oz I&O: 05/02/18 05/03/18 05/04/18 06:59 06:59 06:59 Intake Total 1380 650 Output Total 500 Balance 880 650 Result Diagrams: 05/01/18 10:33 05/01/18 10:33 Additional Labs: Accuchecks 05/03/18 05/02/18 05/02/18 05:45 20:28 14:51 POC Glucose 348 H 423 H 379 H 05/02/18 11:32 POC Glucose 237 H Phys Exam - Physical Examination HEENT: PERRLA, moist MMs Neck: no JVD, supple Respiratory: no wheezing, no rales Cardiovascular: RRR, no significant murmur Gastrointestinal: soft, non-tender, positive bowel sounds Musculoskeletal: no edema, pulses present Neurological: non-focal, moves all 4 limbs Psychiatric: normal affect, A&O x 3 Dx/Plan (1) S/P laminectomy Code(s): Z98.890 - OTHER SPECIFIED POSTPROCEDURAL STATES Status: Acute Comment: L3-4, 4-5, 04/29/2018 (2) CAD (coronary artery disease) Code(s): I25.10 - ATHSCL HEART DISEASE OF [place] CORONARY ARTERY W/O ANG PCTRS Status: Chronic Qualifiers: Coronary Disease-Associated Artery/Lesion type: bypass graft [place] vs. transplanted heart: [place] heart Associated angina: without angina Qualified Code(s): I25.810 - Atherosclerosis of coronary artery bypass graft(s) without angina pectoris (3) CKD (chronic kidney disease) stage 3, GFR 30-59 ml/min Code(s): N18.3 - CHRONIC KIDNEY DISEASE, STAGE 3 (MODERATE) Status: Chronic (4) DM2 (diabetes mellitus, type 2) Status: Chronic Qualifiers: Diabetes mellitus fci insulin use: with fci use Diabetes mellitus complication status: with hyperglycemia Qualified Code(s): E11.65 - Type 2 diabetes mellitus with hyperglycemia; Z79.4 - long term care pharmacist (current) use of insulin (5) Dyslipidemia Code(s): E78.5 - HYPERLIPIDEMIA, UNSPECIFIED Status: Chronic (6) HTN (hypertension) Code(s): I10 - ESSENTIAL (PRIMARY) HYPERTENSION Status: Chronic Qualifiers: Hypertension type: essential hypertension (7) Macrocytic anemia Code(s): D53.9 - NUTRITIONAL ANEMIA, UNSPECIFIED Status: Chronic - Plan dm is uncontrolled sec to steroids -: suggest rapidly taper and dc steroids -: may dc anytime if accepted rehab/swing bed -: d/w son at bedside -: continue current meds including levaquin * . Review of Systems - Medications/Allergies Allergies/Adverse Reactions: Allergies Allergy/AdvReac Type Severity Reaction Status Date / Time amoxicillin [Amoxicillin] Allergy Mild Rash Verified 04/26/18 10:20 cephalexin [Cephalexin] Allergy Mild Rash Verified 04/26/18 10:20 darifenacin hydrobromide Allergy LEG CRAMPS Verified 04/26/18 10:20 [From Enablex] metformin Allergy severe Verified 04/26/18 10:20 diarrhea Penicillins Allergy Verified 04/29/18 13:00 solifenacin [From Vesicare] Allergy Verified 04/26/18 10:20 tolterodine tartrate Allergy LEG CRAMPS Verified 04/26/18 10:20 [From Detrol] Hydralazine IV AdvReac Uncoded 04/26/18 10:20 Medications: Current Medications Acetaminophen (Tylenol) 650 mg PO Q4H PRN PRN Reason: Headache/Fever or Pain 1-3 Last Admin: 05/03/18 08:37 Dose: 650 mg Al Hydroxide/Mg Hydroxide (Maalox) 30 ml PO Q4H PRN PRN Reason: Indigestion Albuterol/Ipratropium (Duoneb) 3 ml NEB [id number] [facility] Last Admin: 05/03/18 06:45 Dose: 3 ml Bisacodyl (Dulcolax) 10 mg ND Q12H PRN PRN Reason: Constipation Coenzyme Q10 (Coenzyme Q10) 100 mg PO BID [facility] Last Admin: 05/03/18 08:37 Dose: 100 mg Dexamethasone (Decadron) 2 mg PO BID [facility] Stop: 05/05/18 21:01 Last Admin: 05/03/18 08:37 Dose: 2 mg Dextrose/Water (Dextrose 50%) 25 gm IVP PRN PRN PRN Reason: HYPOGLYCEMIA PROTOCOL Docusate Sodium (Colace) 100 mg PO BID [facility] Last Admin: 05/03/18 08:37 Dose: 100 mg Glucagon (Glucagon) 1 mg IM PRN PRN PRN Reason: HYPOGLYCEMIA PROTOCOL Dextrose/Water (D5w) 1,000 mls @ 0 mls/hr IV INF PRN PRN Reason: HYPOGLYCEMIA PROTOCOL Insulin Human Lispro (Humalog) 0 units SC .MILD SLIDING SCALE PRN PRN Reason: Mild Correctional Scale Last Admin: 05/03/18 07:01 Dose: 5 unit Insulin Human Lispro (Humalog) 0 units SC .BEDTIME SLIDING SC PRN PRN Reason: Bedtime Correctional Scale Last Admin: 05/02/18 20:29 Dose: 5 unit Levofloxacin (Levaquin) 500 mg PO 0600 [facility] Stop: 05/10/18 06:01 Last Admin: 05/03/18 05:49 Dose: 500 mg Magnesium Hydroxide (Milk Of Magnesium) 30 ml PO Q12H PRN PRN Reason: Constipation Morphine Sulfate (Morphine) 2 mg SLOW IVP Q1H PRN PRN Reason: Moderate Breakthrough Pain Last Admin: 04/29/18 17:04 Dose: 2 mg Dulaglutide [ (Trulicity] 1.5 Mg) 1 each SC Q7D [facility] Last Admin: 04/29/18 22:57 Dose: 1 each Icosapent Ethyl [ (Vascepa] Tab) 2 each PO BID [facility] Pitavastatin Calcium ([Livalo] 1 Tab) 1 each PO HS [facility] Levemir (Insulin Detemir) Vial 100 Units/Ml 0 each SC HS [facility] Last Admin: 05/02/18 20:29 Dose: 1 each Levemir (Insulin Detemir) Vial 100 Units/Ml 0 each SC QAM [facility] Last Admin: 05/03/18 08:39 Dose: Not Given Polyethylene Glycol (Miralax) 17 gm PO DAILY [facility] Last Admin: 05/03/18 08:37 Dose: 17 gm Propylene Glycol (Systane Opth Drop 15ml Bot) 1 drop EA EYE QID [facility] Last Admin: 05/02/18 20:26 Dose: 1 drop Sodium Chloride (Flush - Normal Saline) 10 ml IVF PRN PRN PRN Reason: Saline Flush Last Admin: 04/29/18 17:04 Dose: 10 ml Tizanidine HCl (Zanaflex) 4 mg PO Q6H PRN PRN Reason: Muscle Spasm Last Admin: 04/30/18 06:46 Dose: 4 mg
[2018-05-03] MEDS: Polyethylene Glycol OPTH DROP 15 ML BOT EA EYE SCH ×4 (12:17→21:00)
--- NOTE | 2018-05-03 15:15 | ULT ---
BILATERAL LOWER EXTREMITY VENOUS DOPPLER ULTRASOUND: Date: 05/03/18 HISTORY: 78-year-old female with recent back surgery, immobility, leg edema. TECHNIQUE: [place] scale ultrasound with color flow and spectral Doppler imaging of the deep venous systems of the lower extremities was performed bilaterally. FINDINGS: There is good flow, compression, and augmentation noted in the common femoral, femoral, deep femoral, popliteal, posterior tibial, and greater saphenous veins on either side. IMPRESSION: No evidence of deep venous thrombosis in either lower extremity. POS: JU
[2018-05-04] MEDS: HumaLOG 300 UNITS/3 ML VIAL SC PRN (05:59)
--- NOTE | 2018-05-04 07:51 | PRG ---
DATE OF SERVICE: 05/04/2018 Ms. Garrison is 5 days out from decompression fusion lumbar spine. She is making slow, but steady prog ress. She remains on antibiotic therapy as we requested given her exposure to immunomodulatory medic ations and steroids in the past. I gave her a bit of Decadron yesterday. She felt generalized weakn ess and she had been on prednisone up until about a week before surgery. Now that she has gotten a s tress dose of steroids she does feel a little bit better, although her sugars are difficult to contro l, so we will try to wean that over the next 24-48 hours to off. Ms. Garrison had an ultrasound of her legs yesterday which was negative for DVT. Vital signs have been stable over the last 24 hours with no fever recorded. Lower extremity neurolog ical function is stable. The swelling in the legs is down since we Hep-Locked her IV. Our plan is for Ms. Garrison to move to inpatient rehabilitation. I would like a total of 2 weeks of a ntibiotic therapy after her operation, given her high risk for wound infection. I would like her to be tapered off of steroids in the next 24-48 hours and I will start the process myself. We will see her at the end of her inpatient rehabilitation admission.
[2018-05-04] MEDS ORDERED: Dexamethasone 1 MG TAB PO SCH (09:00)
[2018-05-04] MEDS: Ubidecarenone 50 MG CAP PO SCH (09:25)
[2018-05-04] MEDS: Docusate 100 MG CAP PO SCH (09:25)
[2018-05-04] MEDS: Polyethylene Glycol 3350 17 GM Packet PO SCH (09:25)
[2018-05-04] MEDS: Polyethylene Glycol OPTH DROP 15 ML BOT EA EYE SCH (09:29)
[2018-05-04] MEDS: LEVEMIR 100 UNIT/ML SC SCH (09:30)
[2018-05-04 16:17] VITALS: BP 146/79; TEMP 98.6
--- NOTE | 2018-05-05 04:05 | DIS ---
DATE OF ADMISSION: 04/29/2018 DATE OF DISCHARGE: 05/04/2018 DISCHARGE DIAGNOSES: 1. Diabetes mellitus type 2, insulin requiring. 2. Coronary artery disease, chronic and stable. 3. Status post lumbar laminectomy at L3 through L5. 4. Chronic kidney disease stage 3. 5. Hypertension, stable. 6. Chronic macrocytic anemia. PRIMARY SERVICE ATTENDING: Dr. Alexander. Lara for medical management. Dr. Gates for Pulmonary/Cr itical Care Service. PERTINENT LAB AND X-RAY FINDINGS: Creatinine 1.70 with estimated GFR of 29, AST 40, ALT of 22, alkal ine phosphatase 87, total bilirubin 0.4. CBC showed a white blood cell count of 7.5, hemoglobin 9.3, hematocrit 29, MCV 105, blood cultures x2 from 05/01/2018 showed no growth at 48 hours. Bilateral l ower extremity venous Doppler study dated 05/03/2018, negative for DVT. HOSPITAL COURSE: The patient was initially admitted under the Neurosurgical service after presenting with neurogenic claudication of the lumbar spine. The patient underwent decompression and laminecto my of the lumbar spine at L3 through L5. Postoperatively, the patient was managed for pain control a nd somnolence, likely iatrogenic and due to antiemetics. The patient had a code green situation due to somnolence and altered mentation, likely due to Phenergan exposure. The patient clinically stabil ized and was meeting appropriate milestones. The patient continued her regular chronic medication re gimen and was deemed an appropriate candidate for ongoing inpatient rehabilitation. The patient has been approved to transfer to [facility] inpatient rehabilitation and will transfer on 05/04/2018. DISCHARGE MEDICATIONS: 1. Dexamethasone 1 mg p.o. b.i.d. 2. Levaquin 500 mg p.o. daily x10 days. 3. Zanaflex 4 mg p.o. q.i.d. p.r.n. 4. Restasis ophthalmic drops 1 drop to each eye b.i.d. 5. Systane 1 drop to each eye topically q.i.d. 6. Livalo 4 mg p.o. at bedtime. 7. Cozaar 25 mg p.o. q.a.m. 8. Levemir 58 units subcutaneously q.a.m. and 45 units subcutaneously at bedtime. 9. Humalog insulin sliding scale. 10. Vascepa 1 gram 2 tabs p.o. b.i.d. FOLLOWUP: The patient to follow up with her primary care provider, Dr. Rajat Mendoza after discharg e from inpatient rehabilitation. The patient will follow up with Dr. Alexander with Neurosurgery Ser vice. CONDITION ON DISCHARGE: Fair. ACTIVITY: Ad romy. DIET: ADA. CODE STATUS: FULL. DISPOSITION: [facility] Inpatient rehabilitation on 05/04/2018.
== END 2018-05-04 17:22 | DRG 460 ==
LOC: SURG A 04-29 05:43 → SURG B 04-29 12:01 → IMCU/EMU 05-01 10:47 → SURG B 05-02 12:35
PROVIDERS: ADMIT Neurological Surgery; ATTEND Neurological Surgery
PROC: 0SG00AJ Fusion of Lumbar Vertebral Joint with Interbody Fusion Device, Posterior Approach, Anterior Column, Open Approach (ICD-10-PCS; principal; 2018-04-29)
PROC: 01NB0ZZ Release Lumbar Nerve, Open Approach (ICD-10-PCS; 2018-04-29)
DX: M43.16 Spondylolisthesis, lumbar region (principal); M48.062 Spinal stenosis, lumbar region with neurogenic claudication; E78.5 Hyperlipidemia, unspecified; I25.10 Atherosclerotic heart disease of native coronary artery without angina pectoris; M19.90 Unspecified osteoarthritis, unspecified site; F32.9 Major depressive disorder, single episode, unspecified; K21.9 Gastro-esophageal reflux disease without esophagitis; E11.22 Type 2 diabetes mellitus with diabetic chronic kidney disease; I12.9 Hypertensive chronic kidney disease with stage 1 through stage 4 chronic kidney disease, or unspecified chronic kidney disease; N18.3 Chronic kidney disease, stage 3 (moderate); D53.9 Nutritional anemia, unspecified; R11.2 Nausea with vomiting, unspecified; R40.0 Somnolence; T42.6X5A Adverse effect of other antiepileptic and sedative-hypnotic drugs, initial encounter; Y92.009 Unspecified place in unspecified non-institutional (private) residence as the place of occurrence of the external cause; Z79.4 Long term (current) use of insulin; Z95.1 Presence of aortocoronary bypass graft; Z82.49 Family history of ischemic heart disease and other diseases of the circulatory system; Z80.9 Family history of malignant neoplasm, unspecified; Z01.812 Encounter for preprocedural laboratory examination; M48.061 Spinal stenosis, lumbar region without neurogenic claudication
CPT/HCPCS: 36415; 36416; 71045; 76001; 80048; 80053; 85025; 85027; 85610; 85730; 87040; 93970; 94640; 94760; C1713; C1768; G8978-GP-CL; G8978-GP-CM; G8979-GP-CJ; G8979-GP-CK; G8987-GO-CL; G8988-GO-CJ; J0670; J1100; J1720; J1956; J2001; J2270; J2405; J2550; J2704; J3010; J3370; J3490; J7620; J8540

== ENCOUNTER 2018-04-26 10:04 | Outpatient (CLI) | payer MEDICARE, OTHER ==
[2018-04-26 11:18] LABS: Hemoglobin 11.6 g/dL (12.0-16.0); Mean Corpuscular Hemoglobin 33.9 pg (27.0-31.0); Platelet Count 231 thou/uL (130-400); RBC Distribution Width 12.4 % (11.5-14.5); Red Blood Cell (RBC) Count 3.43 mill/uL (4.20-5.40)
[2018-04-26 11:26] LABS: INR-International Normal Ratio 1.1; PTT 26.4 SEC (22.9-36.1); Prothrombin Time 14.2 SEC (12.0-14.7)
[2018-04-26 11:37] LABS: Anion Gap 14 mmol/L (10-20); BUN (Urea Nitrogen) 23 mg/dL (9.8-20.1); Calc. Creatinine Clearance 0 mL/min (70-130); Calcium 8.8 mg/dL (7.8-10.44); Carbon Dioxide 24 mmol/L (23-31); Chloride 104 mmol/L (98-107); Estimated GFR-MDRD 25; Glucose 292 mg/dL (83-110); Potassium 4.6 mmol/L (3.5-5.1); Sodium 137 mmol/L (136-145)
== END 2018-04-26 10:05 | disposition home or self-care (01) ==
LOC: LABBT 10:04
PROVIDERS: ATTEND Neurological Surgery
DX: Z01.812 Encounter for preprocedural laboratory examination (principal); M43.16 Spondylolisthesis, lumbar region; M48.061 Spinal stenosis, lumbar region without neurogenic claudication
CPT/HCPCS: 80048; 85027; 85610; 85730

== ENCOUNTER 2018-07-07 09:01 | Outpatient (CLI) | payer MEDICARE, OTHER ==
--- NOTE | 2018-07-07 11:18 | RAD ---
LUMBAR SPINE 2-3 VIEW SERIES: Date: 07/07/18 INDICATION: Low back pain. History of prior surgery, follow-up. FINDINGS: There is posterior fusion of L3 and L4. Grade I spondylolisthesis of L3 on L4 present. There is an in tervening disc space prosthesis at L3-4. No obvious perihardware lucency visualized with regard to th e bilateral pedicle screws and bilateral vertical interconnecting rods at the L3-4 segments. There is multilevel degenerative change of the lumbar spine. No acute compression deformity. Incidental note of atherosclerosis of the imaged aorta and there is arteriosclerosis seen within pelvic vasculature. IMPRESSION: Postoperative lumbar spine as above. POS: [facility]
== END 2018-07-07 09:02 | disposition home or self-care (01) ==
LOC: TBSIIMAG 09:01
PROVIDERS: ATTEND Neurological Surgery
DX: M51.36 Other intervertebral disc degeneration, lumbar region (principal); M48.061 Spinal stenosis, lumbar region without neurogenic claudication; M43.16 Spondylolisthesis, lumbar region; Z98.890 Other specified postprocedural states
CPT/HCPCS: 72100

== ENCOUNTER 2018-10-17 16:19 | Inpatient (IN) | payer MEDICARE, OTHER ==
[2018-10-17 17:54] LABS: #Basophils 0.1 thou/uL (0.0-0.2); #Eosinphils 0.5 thou/uL (0.0-0.7); #Lymphocytes 2.2 thou/uL (1.20-3.40); #Monocytes 0.5 thou/uL (0.11-0.59); #Neutrophils 5.2 thou/uL (1.40-6.50); %Eosinophils 5.4 % (0.0-10.0); %Lymphocytes 25.7 % (21.0-51.0); %Monocytes 6.3 % (0.0-10.0); %Neutrophils 61.6 % (42.0-75.0); Hemoglobin 10.5 g/dL (12.0-16.0); Mean Corpuscular HGB CONC 32.6 g/dL (32.0-36.0); Mean Corpuscular Hemoglobin 33.6 pg (27.0-31.0); Mean Platelet Volume 7.4 fL (7.4-10.4); Platelet Count 270 thou/uL (130-400); RBC Distribution Width 12.2 % (11.5-14.5); Red Blood Cell (RBC) Count 3.12 mill/uL (4.20-5.40); White Blood Cell (WBC) Count 8.4 thou/uL (4.8-10.8)
[2018-10-17 18:13] LABS: ALT (SGPT) 24 U/L (8-55); AST (SGOT) 32 U/L (5-34); Albumin 3.9 g/dL (3.4-4.8); Alkaline Phosphatase 141 U/L (40-150); Anion Gap 16 mmol/L (10-20); BUN (Urea Nitrogen) 63 mg/dL (9.8-20.1); Bilirubin, Total 0.2 mg/dL (0.2-1.2); CK (CPK) 274 U/L (29-168); Calc. Creatinine Clearance 0 mL/min (70-130); Calcium 9.1 mg/dL (7.8-10.44); Carbon Dioxide 19 mmol/L (23-31); Chloride 108 mmol/L (98-107); Estimated GFR-MDRD 13; Globulin 3.6 g/dL (2.4-3.5); Glucose 158 mg/dL (83-110); Potassium 6.3 mmol/L (3.5-5.1); Protein, Total 7.5 g/dL (6.0-8.3); Sodium 137 mmol/L (136-145)
--- NOTE | 2018-10-17 20:06 | RAD ---
Frontal radiograph chest: 10/17/2018 COMPARISON: 05/02/2018 HISTORY: Cough, chest pain FINDINGS: Lungs are clear. Stable midline sternotomy wires and mediastinal clips. Atherosclerotic promise cification of the aortic arch noted. IMPRESSION: No acute findings.
--- NOTE | 2018-10-17 20:30 | RAD ---
SINGLE LATERAL CHEST: Comparison: 10-17-18 Indication: Chest pain. FINDINGS: No pleural effusion is evident. There is multilevel spondylosis of the thoracic spine . There is part ial visualization of lumbar spinal instrumentation. There is post-surgical change of prior CABG. IMPRESSION: No acute abnormality. POS: [facility]
[2018-10-17 21:01] LABS: Lactic Acid 2.6 mmol/L (0.5-2.2)
[2018-10-17 21:57] LABS: Troponin I 0.011 ng/mL (< 0.028)
[2018-10-17 23:07] LABS: Bilirubin Negative (Negative); Blood, Urine Negative (Negative); Clarity CLEAR (Clear); Glucose, Urine (Dipstick) Negative (Negative); Leukocyte Small (Negative); Nitrite Negative (Negative); Protein, Urine (Dipstick) Negative (Neg-Trace); Specific Gravity, Urine 1.016 (1.002-1.036); Urobilinogen 0.2 mg/dL (0.2-1.0); pH, Urine 5.5 (5.0-9.0)
[2018-10-17 23:08] LABS: Bacteria/HPF 4+ HPF (None Seen); Hyaline Casts/LPF 0-3 HYALINE CAST LPF (0-3 Hyaline); RBC/HPF 0-3 HPF (0-3); Squamous Epithelial 0-3 HPF (0-3)
[2018-10-18 00:54] LABS: Anion Gap 17 mmol/L (10-20); BUN (Urea Nitrogen) 61 mg/dL (9.8-20.1); Calc. Creatinine Clearance 0 mL/min (70-130); Carbon Dioxide 18 mmol/L (23-31); Chloride 108 mmol/L (98-107); Estimated GFR-MDRD 15; Glucose 164 mg/dL (83-110); Sodium 138 mmol/L (136-145)
[2018-10-18 00:59] LABS: Troponin I Less than 0.010 ng/mL (< 0.028)
[2018-10-18] MEDS ORDERED: HYDROcodone/Chlorphen Polis 5 ML UDCUP PO SCH (01:45)
[2018-10-18] MEDS ORDERED: Dextrose 50% Abboject 50 ML SYRINGE SLOW IVP PRN (01:48)
[2018-10-18] MEDS ORDERED: Dextrose 5% in Water 1,000 ML IV PRN (01:48)
--- NOTE | 2018-10-18 05:45 | HP ---
CHIEF COMPLAINT: Cough. HISTORY OF PRESENT ILLNESS: The patient is an 78-year-old female, who reports about a month ago, she started developing some symptoms consistent with allergic rhinitis. She had some nasal congestion, started using lxrv-fcl-yyxrzyu Zyrtec ultimately , when symptoms persisted, she went to see Dr. Mendoza last week and he thought it was sinusitis, started on some antibiotics and an inhaler. She had a cough that persisted, productive of thick white or yellow sputum, persistent nasal congestion, drainage and postnasal drainage causing her a bad taste in her mouth and further cough. She had a stress test scheduled previously with Dr. Nava on Wednesday. She went through with that and has subsequently received a call that the stress test was good and that they did not believe she was having any problems with her heart. On Wednesday, she went to [facility], where she received two nebulizer treatments and steroid shot, but kept her on the same antibiotics, but changed the inhaler. She continued to cough to the point where she feels exhausted, completely worn out and has a significant headache. She has had some mild shortness of breath associated with this, but no fevers or chills. REVIEW OF SYSTEMS: The patient has had some heaviness in her chest and abdominal soreness and jaw soreness related to the cough. She had normal appetite. Normal bowel and bladder habits. All other systems were reviewed and all pertinent positives and negatives noted in the history of present illness. PAST MEDICAL HISTORY: Notable for coronary artery disease, type 2 diabetes with retinopathy, hyperlipidemia, GERD, arthritis, urge incontinence, iron deficiency anemia, polymyalgia rheumatica, allergic rhinitis, irritable bowel syndrome, hyperlipidemia, hypertension, and intermittent asthma. The patient has chronic kidney disease stage 3, followed by Dr. Chavez. PAST SURGICAL HISTORY: Bilateral tubal ligation, knee surgery, hysterectomy, coronary artery bypass graft, left knee replacement, lumbar decompression laminectomy at L3 through L5. FAMILY HISTORY: Father had heart disease and hypertension. Mother had hypertension and colon cancer. SOCIAL HISTORY: Nonsmoker and nondrinker. She is a . She is a full code and any of her children would be her surrogate decision makers for her should that be necessary. HOME MEDICATIONS: 1. Tramadol 50 mg q.6 hours p.r.n. 2. Metoprolol 50 mg p.o. b.i.d. with food. 3. Losartan 25 mg p.o. daily. 4. Humalog sliding scale. 5. Tresiba 48 units subcu daily. 6. Livalo 4 mg p.o. daily. 7. Systane eye drops p.r.n. 8. CoQ10 at 100 mg p.o. daily. 9. Restasis eye drops. 10. Bactrim DS one p.o. b.i.d. 11. Fluticasone inhaler one puff b.i.d. 12. Vascepa, dose not known. 13. Aspirin 325 daily. 14. Again, the patient was given a Solu-Medrol injection on 10/15. PHYSICAL EXAMINATION: VITAL SIGNS: Blood pressure 131/57, pulse 100, respirations 22, temperature 98.4, and O2 saturation 96% on 3 L. She was 89% on room air initially. GENERAL APPEARANCE: Age-appropriate female. She is in no distress. She is awake, alert, oriented, pleasant, and cooperative. She does have a persistent cough with some evidence of a bronchitic sounding cough. HEENT: PERRL. No OP lesions. NECK: Supple and symmetric. No lymphadenopathy, JVD, or carotid bruits. HEART: Regular rate and rhythm. No murmurs, gallops, or rubs. LUNGS: Clear to auscultation bilaterally, although she has a hard time with the exam, because every attempted deep breath results in a cough with a bit of a croup-type sound. ABDOMEN: Soft, nontender, and nondistended. Positive bowel sounds. No masses. No organomegaly. EXTREMITIES: Warm and dry. No cyanosis, clubbing, or edema. NEUROLOGIC: Intact. SKIN: Warm and dry. PSYCH: Normal affect and behavior. LABORATORY DATA: White count 8.4, hemoglobin 10.5, MCV is 103, and platelets 270. Sodium 137, potassium 6.3, chloride 108, CO2 is 19, BUN 63, creatinine 3.33, and glucose 158. Lactic acid was 2.6. CK is 274. BNP is 548. Urinalysis, 4+ bacteria, 4-6 white cells, small leukocyte esterase. DIAGNOSTIC DATA: Chest x-ray shows no acute findings. IMPRESSION AND PLAN: 1. Cough, unclear etiology, sounds like she may have some sinusitis causing persistent cough. We and will get a ct of her sinuses, give her some better cough suppressant to stay away from any additional steroids because of her diabetes. 2. Xicqf-qx-tzqiivf renal failure. The patient has stage 3 chronic kidney disease. Currently, her GFR is down to 13. I believe this is likely due to the fact that she has been on Bactrim. We will discontinue that and continue to monitor her renal function. She is also going to receive some degree of hydration. 3. Hyperkalemia due to the renal insufficiency. The patient has received significant hydration. Rechecking the potassium now. If it persist, we will need to be more aggressive in lowering it. 4. Chronic anemia, stable. 5. History of coronary artery disease. Continue usual home medications. 6. Slightly elevated BNP. This is above her usual baseline numbers, but she does not appear to have significant evidence of decompensated failure either with peripheral edema or pulmonary edema on chest x-ray. She recently had stress testing, which was unremarkable as well. 7. History of polymyalgia rheumatica, appears to be stable. 8. Hypertension. Continue losartan and metoprolol. Job ID: [id number] [facility]
[2018-10-18] MEDS ORDERED: HumaLOG 300 UNITS/3 ML VIAL ONE (06:00)
[2018-10-18] MEDS: HumaLOG 300 UNITS/3 ML VIAL SC PRN ×2 (06:09→11:08)
--- NOTE | 2018-10-18 08:09 | CT ---
PRELIMINARY REPORT/[facility]/EMERGENCY AFTER HOURS PROCEDURE: EXAM: CT Maxillofacial Without Contrast, Sinus EXAM DATE/TIME: 10/18/2018 2:03 AM CLINICAL HISTORY: 78 years old, female; Face pain; Patient HX: Er 1. Eval for sinusitis. PT C/O headache (pressure like ). PT also C/O difficulty breathing. TECHNIQUE: Imaging protocol: CT Maxillofacial without intravenous contrast. Focus on the sinuses. Coronal and sa gittal reformatted images were created and reviewed. COMPARISON: No relevant prior studies available. FINDINGS: Paranasal sinuses: Complete opacification of the right maxillary sinus and outflow tract with near co mplete opacification of the right anterior ethmoid air cells and opacified right frontal sinus. Minim al mucosal thickening in the left maxillary and right sphenoid sinuses. Orbits: Unremarkable. Nasal cavity/Septum: Unremarkable. Dental: Mild periapical lucency about the most posterior right maxillary molar with small defect tomasa g the floor of the maxillary sinus. Soft tissues: Unremarkable. Bones/joints: Unremarkable. IMPRESSION: Right-sided sinusitis. Thank you for allowing us to participate in the care of your patient. Dictated and Authenticated by: Fran Livingston MD 10/18/2018 4:14 AM Central Time ([place] & [place]) FINAL REPORT SINUS CT WITHOUT CONTRAST: Date: 10/18/18 HISTORY: Difficulty breathing. Headache. Evaluate for sinusitis. COMPARISON: None. FINDINGS: There is complete opacification of the right maxillary sinus, partial opacification of the right ethm oid air cells, and complete opacification of the right frontal sinus. There is abnormal hypoattenuati on extending into the right nasal cavity. There is soft tissue attenuation of the right ostiomeatal c omplex. There are no destructive or erosive changes in the left sinuses. There is a possible deminera lization versus dehiscence involving the medial right maxillary sinus. Periapical lucency involving a right maxillary molar tooth is identified, at the floor of the right maxillary sinus. IMPRESSION: This report is in agreement with the preliminary report by [facility]. 1. Right sinus disease as detailed above. There is erosion/demineralization involving the medial mar gin of the right maxillary sinus. There is abnormal soft tissue hypoattenuation of the right nasal ca vity. 2. Periapical lucency involving the right maxillary molar tooth as described above. POS: [facility]
[2018-10-18] MEDS ORDERED: Metoprolol Tartrate 50 MG TAB ONE (09:07)
[2018-10-18] MEDS ORDERED: Aspirin 325 MG TAB ONE (09:07)
[2018-10-18] MEDS: Aspirin 325 mg Enteric Coated Tablet PO SCH (09:13)
[2018-10-18] MEDS: Metoprolol Tartrate 50 MG TAB PO SCH ×2 (09:13→20:25)
[2018-10-18] MEDS: Losartan 25 MG TAB PO SCH (09:13)
--- NOTE | 2018-10-18 16:20 | CON ---
DATE OF CONSULTATION: REASON FOR CONSULTATION: Stage 3 chronic kidney disease, acute renal failure, and hyperkalemia. HISTORY OF PRESENT ILLNESS: This is a very pleasant 78-year-old female, who was admitted for hyperkalemia and acute renal failure. Her baseline creatinine was 1.2, which increased to more than 3.3. The patient was started on Bactrim recently. The patient denies any headache, numbness, tingling, or weakness. PAST MEDICAL HISTORY: Significant for hypertension, coronary artery disease, stage 4 chronic kidney disease, polymyalgia rheumatica, allergic rhinitis, irritable bowel syndrome, stage 3-4 chronic kidney disease, bilateral tubal ligation, knee surgery, hysterectomy, CABG, left knee replacement, lumbar decompression, laminectomy. FAMILY HISTORY: Negative for ESRD. ALLERGIES: REVIEWED. HOME MEDICATIONS: List reviewed. REVIEW OF SYSTEMS: A 12-point review of systems was performed and was negative except for positives noted above. GENERAL: HEAD: NECK: No swelling or lumps. NOSE: No epistaxis or discharge. EYES: No diplopia or pain. RESPIRATORY: CARDIOVASCULAR: GASTROINTESTINAL: /SEQUINS WINDER: MUSCULOSKELETAL: No joint pain. NEUROPSYCHIATIC SYSTEMS: No suicidal ideation. No ideation. SKIN: Denies any rash or ulcer. CONSTITUTIONAL: No fever or chills. OBJECTIVE: See above. Awake, alert, in no acute distress. VITAL SIGNS: Pulse 100, breathing 16, blood pressure 131/59. GENERAL APPEARANCE AND MENTAL STATUS: Fair. HEAD/NECK: Normocephalic. Atraumatic. EYES: EOMI. No deformity. EARS: Clear. No ulcers. NOSE: Intact. No lesions. MOUTH: Clear. No discharge. THROAT: Clear. No exudate. LUNGS: Clear. No crackles. CARDIAC: S1, S2. No rub. ABDOMEN: Benign. Bowel sounds positive. GENITALIA/RECTUM: Lofton absent. BACK/EXTREMITIES: Edema 0+. NEUROLOGICAL: Alert and motor intact. SKIN: LYMPHATICS: LABS: Reviewed. ASSESSMENT: 1. Acute kidney injury on chronic kidney disease. Continue gentle hydration. 2. Hypertension, stable. 3. Anemia, stable. 4. Hyperkalemia, improved. No indication for dialysis at this time. Job ID: [id number]
[2018-10-18 18:43] VITALS: BMI 30.8
--- NOTE | 2018-10-18 18:47 | PDOC.EVN ---
Event Note - Event Note Event Note: Same day follow up. Patient has ongoing paroxysms of cough. Reports allergies and sinus issues for a few weeks, with interval worsening in last one week despite trials of outpatient steroids, Bactrim. Not running fever, however, at home. Tender frontal and maxillary sinuses, postnasal drip present. CT sinuses noted. Multiple allergies complicate antibiotic options - will start doxycycline. Ordered gentle IVFs for one liter, check AML in context of CKD. Try scheduling nebs for bid (has q 4 prn) and scheduled cough medication qid. Ordered qhs snack, reports noctural hypoglycemia as a feature of her diabetes. Will request ENT opinion. Explained plan to patient and daughter at bedside. Questions answered. They are frustrated by extended ER hold time experienced. Concerns addressed at bedside.
[2018-10-18] MEDS: Sodium Chloride 0.9% 1,000 ML IV SCH (19:47)
[2018-10-18] MEDS: Albuterol Sulfate 2.5 mg/3 ml Neb NEB PRN (19:53)
[2018-10-18] MEDS: Atorvastatin Calcium 20 MG TAB PO SCH (20:25)
[2018-10-18] MEDS: guaiFENesin/Codeine Phosphate 200 mg/20 mg 10 ml UD Cup PO SCH (20:25)
[2018-10-18] MEDS ORDERED: Doxycycline 100 MG CAP PO SCH (21:00)
[2018-10-18] MEDS ORDERED: Sodium Chloride Nasal 15 GM TUBE EA NARE SCH (21:45)
[2018-10-18] MEDS ORDERED: guaiFENesin ER 600 MG TAB PO SCH (21:45)
[2018-10-18] MEDS: Clindamycin/D5W 900 MG in Premix Bag 1 BAG IVPB SCH (22:05)
[2018-10-18] MEDS: Acetaminophen 325 MG TAB PO PRN (22:48)
--- NOTE | 2018-10-19 03:41 | CON ---
DATE OF CONSULTATION: 10/18/2018 REASON FOR CONSULTATION: Sinusitis and cough. CONSULTING PHYSICIAN: Dr. Gardiner. HISTORY OF PRESENT ILLNESS: Ms. Garrison is an 78-year-old female, who has had a 1-month history of symptoms that progressively worsened, primarily nasal congestion, drainage, and cough as well as some facial pain. She has had previous history of sinus problems about twice a year that seemed to resolve with medications. She was seen about a week ago and started on Bactrim as well as an inhaler and then presented on Wednesday to the Urgent Care with persistent symptoms. She was given nebulizer treatments and her inhaler was changed but continued on the same antibiotics. She was now admitted for hyperkalemia and evidence of early onset of kidney failure, possibly secondary to the Bactrim and was taken off the Bactrim and had a CT scan done on the sinuses, which showed significant opacification of the right maxillary, frontal, and anterior ethmoid sinuses. It has also showed a lucency in the second molar tooth on the maxillary tooth on the right side. No history of any dental problems recently but does have some dental pain but not localized to that tooth. Please see her admission history and physical for further details of her past medical history and review of systems reviewed on this date. PHYSICAL EXAMINATION: GENERAL: Well-developed, well-nourished, elderly white female, in no acute distress. HEENT: Head is normocephalic and atraumatic. Eyes; pupils are equal, round, and reactive to light. Extraocular movements are intact. Ears; tympanic membranes are intact, mobile, and clear. No fluid infection noted. Nose shows a dry and irritated nostril without any purulent drainage or infection. Facial pain as does have some mild tenderness over the right maxillary sinus. No tenderness over the frontal sinuses. Oral cavity and oropharynx showed the teeth appear to be in good repair. Does have some crown teeth and fillings but no inflammation or swelling was noted. No tenderness of any of the teeth was noted. Tonsils appeared to be absent. There is no evidence of any postnasal drainage, erythema, leukoplakia, or any other lesions noted. NECK: With no significant adenopathy or mass. Thyroid is palpably normal. LUNGS: Clear to auscultation. HEART: Rate and rhythm regular without murmur or gallop. DIAGNOSTIC DATA: Review of the CT scan does indeed show opacification of the right maxillary, frontal, and anterior ethmoid sinuses. No other significant disease found other than lucency above the right second molar tooth. ASSESSMENT: Right frontal, maxillary, and ethmoid sinusitis, possibly related to a dental abscess coming from that right molar tooth but did not find anything to culture today and did not have instruments to be able to do that. I think it would be reasonable to put her on coverage for possible dental abscess. Since her allergies are to penicillins, we would recommend cleocin 300 mg q.i.d. Also, may want to do IV antibiotics while she is in the hospital. Saline irrigations, saline gel in the nose, Mucinex mucus and good hydration. If that is not working, may have to consider trying to get a culture or may even need to consider endoscopic sinus surgery to open up the sinuses and allow them to drain. If it is coming from the tooth, may need that tooth intervention, either a root canal or extraction. She can be followed up as an outpatient. If she gets worse, need to proceed ahead with probable surgery. Job ID: [id number]
[2018-10-19] MEDS: Clindamycin/D5W 900 MG in Premix Bag 1 BAG IVPB SCH ×3 (05:23→21:32)
[2018-10-19] MEDS: Sodium Chloride 0.9% 1,000 ML IV SCH ×2 (05:32→13:53)
[2018-10-19 05:36] LABS: #Eosinphils 0.9 thou/uL (0.0-0.7); #Lymphocytes 2.2 thou/uL (1.20-3.40); #Monocytes 0.5 thou/uL (0.11-0.59); #Neutrophils 2.8 thou/uL (1.40-6.50); %Basophils 0.7 % (0.0-1.0); %Eosinophils 13.2 % (0.0-10.0); %Lymphocytes 34.4 % (21.0-51.0); %Monocytes 8.3 % (0.0-10.0); %Neutrophils 43.4 % (42.0-75.0); Hemoglobin 9.6 g/dL (12.0-16.0); Mean Corpuscular HGB CONC 32.5 g/dL (32.0-36.0); Mean Corpuscular Hemoglobin 33.6 pg (27.0-31.0); Mean Platelet Volume 7.4 fL (7.4-10.4); Platelet Count 252 thou/uL (130-400); RBC Distribution Width 12.2 % (11.5-14.5); Red Blood Cell (RBC) Count 2.86 mill/uL (4.20-5.40); White Blood Cell (WBC) Count 6.5 thou/uL (4.8-10.8)
[2018-10-19 05:51] LABS: Anion Gap 11 mmol/L (10-20); BUN (Urea Nitrogen) 53 mg/dL (9.8-20.1); Calc. Creatinine Clearance 25 mL/min (70-130); Calcium 8.5 mg/dL (7.8-10.44); Carbon Dioxide 20 mmol/L (23-31); Chloride 112 mmol/L (98-107); Estimated GFR-MDRD 20; Glucose 134 mg/dL (83-110); Potassium 5.7 mmol/L (3.5-5.1); Sodium 137 mmol/L (136-145)
[2018-10-19] MEDS: Albuterol Sulfate 1.25 MG/3 ML NEB NEB SCH ×2 (07:38→19:11)
[2018-10-19] MEDS ORDERED: Dextrose 50% Abboject 50 ML SYRINGE SLOW IVP ONE (08:39)
[2018-10-19] MEDS ORDERED: Insulin Regular 300 UNITS/3 ML VIAL SC SCH (08:45)
[2018-10-19] MEDS: Losartan 25 MG TAB PO SCH (09:07)
[2018-10-19] MEDS: Metoprolol Tartrate 50 MG TAB PO SCH ×2 (09:07→20:03)
[2018-10-19] MEDS: guaiFENesin ER 600 MG TAB PO SCH ×2 (09:07→20:03)
[2018-10-19] MEDS: Saccharomyces boulardii 250 MG CAP PO SCH (09:08)
[2018-10-19] MEDS: Aspirin 325 mg Enteric Coated Tablet PO SCH (09:08)
[2018-10-19] MEDS: guaiFENesin/Codeine Phosphate 200 mg/20 mg 10 ml UD Cup PO SCH ×4 (09:08→23:18)
[2018-10-19] MEDS: Sodium Chloride Nasal 15 GM TUBE EA NARE SCH ×3 (09:09→20:07)
[2018-10-19 12:40] LABS: Anion Gap 12 mmol/L (10-20); BUN (Urea Nitrogen) 49 mg/dL (9.8-20.1); Calc. Creatinine Clearance 26 mL/min (70-130); Calcium 8.8 mg/dL (7.8-10.44); Carbon Dioxide 22 mmol/L (23-31); Chloride 109 mmol/L (98-107); Estimated GFR-MDRD 21; Glucose 257 mg/dL (83-110); Potassium 6.2 mmol/L (3.5-5.1); Sodium 137 mmol/L (136-145)
--- NOTE | 2018-10-19 12:57 | PRG ---
DATE OF SERVICE: 10/19/2018 SUBJECTIVE: An 78-year-old female being seen for acute kidney injury. The patient denied nausea, vomiting, or chest pain. OBJECTIVE: GENERAL: The patient is awake and alert. VITAL SIGNS: Afebrile. Pulse 69, breathing 16, blood pressure 114/54. GENERAL APPEARANCE AND MENTAL STATUS: Fair. HEAD/NECK: Normocephalic. Atraumatic. EYES: EOMI. No deformity. EARS: Clear. No ulcers. NOSE: Intact. No lesions. MOUTH: Clear. No discharge. THROAT: Clear. No exudate. LUNGS: Clear. No crackles. CARDIAC: S1, S2. No rub. ABDOMEN: Benign. Bowel sounds positive. GENITALIA/RECTUM: Lofton absent. BACK/EXTREMITIES: Edema 0+. NEUROLOGICAL: Alert and motor intact. SKIN: LYMPHATICS: LABORATORY DATA: Reviewed. ASSESSMENT AND PLAN: 1. Acute kidney injury with chronic kidney disease. Renal function has improved. 2. Hypertension, stable. 3. Anemia, stable. 4. Hyperkalemia. We will recheck potassium again today. We will give Kayexalate. 5. Medications based on GFR. 6. Avoid doxycycline. Job ID: [id number]
[2018-10-19] MEDS: Albuterol Sulfate 2.5 mg/3 ml Neb NEB PRN (13:46)
--- NOTE | 2018-10-19 14:15 | PDOC.PN ---
- Subjective Encounter Start Date: 10/19/18 Encounter Start Time: 14:13 Subjective: feels weak and still has some headache and sinus pain - Objective Resuscitation Status - Order Detail: 10/18/18 01:43 Resuscitation Status Routine Resuscitation Status: FULL: Full Resuscitation MAR Reviewed: Yes Vital Signs & Weight: Vital Signs (12 hours) Temp Pulse Resp BP Pulse Ox 10/19/18 13:46 72 20 100 10/19/18 07:40 92 L 10/19/18 07:38 67 16 92 L 10/19/18 04:00 97.8 F 75 17 114/54 L 92 L Weight Weight 183 lb 8 oz I&O: 10/18/18 10/19/18 10/20/18 06:59 06:59 06:59 Intake Total 1500 Output Total 1300 Balance 200 Result Diagrams: 10/19/18 05:08 10/19/18 12:12 Additional Labs: Accuchecks 10/19/18 10/19/18 10/19/18 11:20 05:49 02:02 POC Glucose 198 H 125 H 253 H 10/18/18 10/18/18 20:13 17:01 POC Glucose 162 H 135 H Microbiology 10/17/18 21:27 Nasopharyngeal swab Respiratory Virus Panel (PCR) - Final 10/17/18 20:30 Venous blood - Right Hand Blood Culture - Preliminary Specimen has been received and culture in progress. No Growth to date. 10/17/18 20:25 Venous blood - Right Arm Blood Culture - Preliminary Specimen has been received and culture in progress. No Growth to date. Laboratory Tests 10/10/18 10/17/18 10/18/18 07:45 17:44 00:28 Potassium 6.3 H 5.0 Creatinine 1.81 H 3.33 H 3.04 H 10/19/18 05:08 Potassium 5.7 H Creatinine 2.34 H Phys Exam - Physical Examination Constitutional: NAD HEENT: PERRLA, moist MMs, sclera anicteric, oral pharynx no lesions tenderness to R sinus area Neck: no nodes, no JVD, supple, full ROM Respiratory: no wheezing, no rales, no rhonchi, clear to auscultation bilateral Cardiovascular: RRR, no significant murmur Gastrointestinal: soft, non-tender, no distention, positive bowel sounds Musculoskeletal: no edema, pulses present Neurological: non-focal, normal sensation, moves all 4 limbs Psychiatric: normal affect, A&O x 3 Skin: no rash Dx/Plan (1) Acute sinusitis Code(s): J01.90 - ACUTE SINUSITIS, UNSPECIFIED Status: Acute Qualifiers: Sinusitis location: maxillary Comment: R Frontal,Maxillary and ethmoidal.On IC ABx. ENT evaluated as well (2) Hyperkalemia Code(s): E87.5 - HYPERKALEMIA Status: Acute Comment: Given kayexalate & INsulin +dextrose in am. Recheck (3) DOMINIQUE (acute kidney injury) Code(s): N17.9 - ACUTE KIDNEY FAILURE, UNSPECIFIED Status: Acute Comment: stable. Monitor. DC ARB.Hold Lasix. Nephrology following as well. Discussed w Dr. Sarmiento (4) Dental abscess Code(s): K04.7 - PERIAPICAL ABSCESS WITHOUT SINUS Status: Acute Comment: on IV Abx.clindamycin (5) UTI (urinary tract infection) Status: Acute Comment: H/O multiple UTI in past (6) CAD (coronary artery disease) Code(s): I25.10 - ATHSCL HEART DISEASE OF [place] CORONARY ARTERY W/O ANG PCTRS Status: Chronic Qualifiers: Coronary Disease-Associated Artery/Lesion type: bypass graft [place] vs. transplanted heart: [place] heart Associated angina: without angina Qualified Code(s): I25.810 - Atherosclerosis of coronary artery bypass graft(s) without angina pectoris Comment: stable. On BB,statin. Hold ARB due to DOMINIQUE (7) CKD (chronic kidney disease) stage 3, GFR 30-59 ml/min Code(s): N18.3 - CHRONIC KIDNEY DISEASE, STAGE 3 (MODERATE) Status: Chronic (8) DM2 (diabetes mellitus, type 2) Status: Chronic Qualifiers: Diabetes mellitus emt intermediate insulin use: with senior living use Diabetes mellitus complication status: with hyperglycemia Qualified Code(s): E11.65 - Type 2 diabetes mellitus with hyperglycemia; Z79.4 - long term (current) use of insulin Comment: Iss .Add lantus BID as Bloos sugar still high.Monitor (9) Dyslipidemia Code(s): E78.5 - HYPERLIPIDEMIA, UNSPECIFIED Status: Chronic Comment: stable. restyart Statin,Vasecpa (10) HTN (hypertension) Code(s): I10 - ESSENTIAL (PRIMARY) HYPERTENSION Status: Chronic Qualifiers: Hypertension type: essential hypertension Comment: stable. Hold ARB for DOMINIQUE. add prn antihypertensives (11) PMR (polymyalgia rheumatica) Code(s): M35.3 - POLYMYALGIA RHEUMATICA Status: Chronic Comment: stable - Plan plan discussed w/ family, continue antibiotics, PT/OT, respiratory therapy, incentive spirometry, out of bed/ambulate, DVT proph w/SCDs repeat kayexalate as Potassium still high.Defer to nephrology.Cr stable -: Pt w Multiple Allergies and seems to have UTI as Well. Clinda willnot cover -: will consult ID for abx assistance. -: clinically better.will monitor. if no improvement or worsening,will get -: OMFS.may need sinus drainage surgically .ENT on board * .AM labs * OT.PT. * Add Probiotics Review of Systems - Review of Systems Constitutional: weakness, malaise ENT: Other Respiratory: negative: Cough, Dry, Shortness of Breath, Hemoptysis, SOB with Excertion, Pleuritic Pain, Sputum, Wheezing Gastrointestinal: Nausea Genitourinary: negative: Dysuria, Frequency, Incontinence, Hematuria, Retention , Other Musculoskeletal: negative: Neck Pain, Shoulder Pain, Arm Pain, Back Pain, Hand Pain, Leg Pain, Foot Pain, Other Neurological: negative: Weakness, Numbness, Incoordination, Change in Speech, Confusion, Seizures, Other - Medications/Allergies Allergies/Adverse Reactions: Allergies Allergy/AdvReac Type Severity Reaction Status Date / Time amoxicillin [Amoxicillin] Allergy Mild Rash Verified 04/26/18 10:20 cephalexin [Cephalexin] Allergy Mild Rash Verified 04/26/18 10:20 darifenacin hydrobromide Allergy LEG CRAMPS Verified 04/26/18 10:20 [From Enablex] metformin Allergy severe Verified 04/26/18 10:20 diarrhea Penicillins Allergy Verified 04/29/18 13:00 solifenacin [From Vesicare] Allergy Verified 04/26/18 10:20 tolterodine tartrate Allergy LEG CRAMPS Verified 04/26/18 10:20 [From Detrol] Hydralazine IV AdvReac Uncoded 04/26/18 10:20 Medications: Current Medications Acetaminophen (Tylenol) 650 mg PO Q4H PRN PRN Reason: Headache/Fever/Mild Pain (1-3) Last Admin: 10/18/18 22:48 Dose: 650 mg Albuterol Sulfate (Ventolin) 2.5 mg NEB [id number] PRN PRN Reason: Wheezing Last Admin: 10/19/18 13:46 Dose: 2.5 mg Albuterol Sulfate (Albuterol Sulfate) 1.25 mg NEB BID-RT [facility] Last Admin: 10/19/18 07:38 Dose: 1.25 mg Aspirin (Ecotrin) 325 mg PO DAILY [facility] Last Admin: 10/19/18 09:08 Dose: 325 mg Atorvastatin Calcium (Lipitor) 20 mg PO HS [facility] Last Admin: 10/18/18 20:25 Dose: 20 mg Dextrose/Water (Dextrose 50%) 25 gm SLOW IVP PRN PRN PRN Reason: Hypoglycemia Glucagon (Glucagon) 1 mg IM PRN PRN PRN Reason: Hypoglycemia Guaifenesin (Mucinex) 1,200 mg PO Q12HR [facility] Last Admin: 10/19/18 09:07 Dose: 1,200 mg Guaifenesin/Codeine Phosphate (Robitussin Ac) 10 ml PO QID [facility] Last Admin: 10/19/18 13:53 Dose: 10 ml Dextrose/Water (D5w) 1,000 mls @ 0 mls/hr IV .Q0M PRN PRN Reason: Hypoglycemia Sodium Chloride (Normal Saline 0.9%) 1,000 mls @ 100 mls/hr IV .Q10H [facility] Last Admin: 10/19/18 13:53 Dose: 1,000 mls Clindamycin Phosphate/Dextrose (900 mg/ Device) 50 mls @ 100 mls/hr IVPB Q8HR [facility] Last Admin: 10/19/18 13:53 Dose: 50 mls Insulin Human Lispro (Humalog) 0 units SC .MILD SLIDING SCALE PRN PRN Reason: Mild Correctional Scale Last Admin: 10/18/18 11:08 Dose: 4 units Losartan Potassium (Cozaar) 25 mg PO DAILY [facility] Last Admin: 10/19/18 09:07 Dose: 25 mg Metoprolol Tartrate (Lopressor) 50 mg PO BID [facility] Last Admin: 10/19/18 09:07 Dose: 50 mg Saccharomyces Boulardii (Florastor) 250 mg PO DAILY [facility] Last Admin: 10/19/18 09:08 Dose: 250 mg Sodium Chloride (Flush - Normal Saline) 10 ml IVF Q12HR [facility] Last Admin: 10/19/18 09:08 Dose: 10 ml Sodium Chloride (Flush - Normal Saline) 10 ml IVF PRN PRN PRN Reason: Saline Flush Sodium Chloride/Aloe Vera ([place] W/Aloe Gel) 0 gm EA NARE TID [facility] Last Admin: 10/19/18 09:09 Dose: 1 spray Sodium Polystyrene Sulfonate (Kayexelate Oral Susp 15 Gm/60 Ml) 30 gm PO NOW [facility] Stop: 10/19/18 16:15
[2018-10-19] MEDS ORDERED: cloNIDine 0.1 MG TAB PO PRN (14:20)
[2018-10-19] MEDS ORDERED: hydrALAZINE 20 MG/ML VIAL SLOW IVP PRN (14:21)
[2018-10-19 20:01] LABS: Anion Gap 13 mmol/L (10-20); BUN (Urea Nitrogen) 45 mg/dL (9.8-20.1); Calc. Creatinine Clearance 28 mL/min (70-130); Calcium 8.9 mg/dL (7.8-10.44); Carbon Dioxide 19 mmol/L (23-31); Chloride 112 mmol/L (98-107); Estimated GFR-MDRD 23; Glucose 183 mg/dL (83-110); Potassium 6.1 mmol/L (3.5-5.1); Sodium 138 mmol/L (136-145)
[2018-10-19] MEDS: Atorvastatin Calcium 20 MG TAB PO SCH (20:03)
[2018-10-19] MEDS: Insulin Glargine 5 UNITS in Pre-Filled Syringe SC SCH (20:04)
[2018-10-19] MEDS: Acetaminophen 325 MG TAB PO PRN (23:19)
--- NOTE | 2018-10-20 00:20 | CON ---
DATE OF CONSULTATION: REASON FOR CONSULTATION: Possible sinusitis. HISTORY OF PRESENT ILLNESS: An 78-year-old, history of coronary artery disease, type 2 diabetes, polymyalgia rheumatica, and some form of possible allergic rhinitis as well as stage 3 CKD, who has had worsening cough for the past week and a half, which failed [id number] medications as well as Bactrim prescribed by Dr. Mendoza. She used to do Flonase, but has not done recently. She also used to do irrigation of her nostrils, but has not done so recently. Because of persistence of cough with some sputum production, nasal congestion, she was admitted. She did have a recent stress test which was negative. PAST MEDICAL HISTORY: Coronary artery disease, type 2 diabetes, rhinitis, GERD, iron deficiency, polymyalgia rheumatica, irritable bowel syndrome, hyperlipidemia, hypertension, and CKD stage 3. SURGICAL HISTORY: Tubal ligation, hysterectomy, coronary artery bypass graft surgery, left knee replacement, and laminectomy. FAMILY HISTORY: Hypertension, colon cancer, and heart disease. SOCIAL HISTORY: Never smoker. CURRENT MEDICATIONS: 1. Tylenol. 2. Ventolin. 3. Albuterol. 4. Ecotrin. 5. Lipitor. 6. Clindamycin. PHYSICAL EXAMINATION: VITAL SIGNS: T-max 98.4, blood pressure 117/55, pulse 85, respirations 20. GENERAL: Appears in no distress. She is urinating in the toilet. SKIN: Peripheral IV access. No lymphadenopathy. HEENT: Ocular movements conjugate. Oral cavity, no [place] teeth. She has some nasal obstipation on the right side. Nasal mucosa appears inflamed. NECK: Supple. LUNGS: Symmetric air entry. No crackles or wheezing. HEART: S1, S2. Regular rate. ABDOMEN: Soft. Not distended or tender. EXTREMITIES: Moves all extremities equally. Cognitive function appears to be intact. LABORATORY DATA: WBC count 8.4, hemoglobin 10.5, and platelets 270. Creatinine is at 2.34. Urinalysis not particularly remarkable. Microbiology with respiratory virus PCR, positive for rhinovirus. ASSESSMENT: History of chronic rhinitis, polymyalgia rheumatica, diabetes type 2, history of possible asthma diagnosed by the PCP few weeks to months ago, but never treated. Worsening cough. Positive rhinovirus PCR, nasal secretions, opacification of ethmoid and maxillary sinus. DISCUSSION: Differential diagnosis includes viral rhinosinusitis superimposed on allergic rhinosinusitis and hyperreactive airway syndrome. In view of the persistence of symptoms, we will have to treat as superimposed bacterial infection. The sinuses can be sampled for culture, but I think at this point in time, I would just treat it . The history of allergy to penicillin is weak and I would challenge her with Augmentin while she is in the hospital because I think she is going to tolerate it just fine and then if so, then she can be discharged on oral Augmentin for 10 days. I would start her on Flonase and nasal irrigation and may consider oral inhalers for hyperreactive airway syndrome as well. Job ID: [id number]
[2018-10-20 01:10] LABS: Anion Gap 12 mmol/L (10-20); BUN (Urea Nitrogen) 40 mg/dL (9.8-20.1); Calc. Creatinine Clearance 29 mL/min (70-130); Calcium 8.3 mg/dL (7.8-10.44); Carbon Dioxide 17 mmol/L (23-31); Chloride 111 mmol/L (98-107); Estimated GFR-MDRD 24; Glucose 268 mg/dL (83-110); Potassium 6.2 mmol/L (3.5-5.1); Sodium 134 mmol/L (136-145)
[2018-10-20] MEDS ORDERED: Dextrose 50% Abboject 50 ML SYRINGE SLOW IVP SCH (02:00)
[2018-10-20] MEDS ORDERED: Insulin Regular 300 UNITS/3 ML VIAL SC SCH (02:00)
[2018-10-20] MEDS ORDERED: Insulin Regular 300 UNITS/3 ML VIAL IVP SCH (02:45)
[2018-10-20] MEDS: Sodium Chloride 0.9% 1,000 ML IV SCH ×2 (02:52→15:05)
[2018-10-20] MEDS: Albuterol Sulfate 2.5 mg/3 ml Neb NEB PRN (04:37)
[2018-10-20] MEDS: Acetaminophen 325 MG TAB PO PRN (05:15)
[2018-10-20] MEDS: Clindamycin/D5W 900 MG in Premix Bag 1 BAG IVPB SCH ×3 (05:16→21:01)
[2018-10-20 06:30] LABS: #Basophils 0.1 thou/uL (0.0-0.2); #Eosinphils 0.8 thou/uL (0.0-0.7); #Lymphocytes 2.1 thou/uL (1.20-3.40); #Monocytes 0.6 thou/uL (0.11-0.59); #Neutrophils 2.7 thou/uL (1.40-6.50); %Eosinophils 12.8 % (0.0-10.0); %Monocytes 9.1 % (0.0-10.0); %Neutrophils 43.1 % (42.0-75.0); Hemoglobin 9.3 g/dL (12.0-16.0); Mean Corpuscular HGB CONC 32.6 g/dL (32.0-36.0); Mean Corpuscular Hemoglobin 33.8 pg (27.0-31.0); Mean Platelet Volume 7.2 fL (7.4-10.4); Platelet Count 235 thou/uL (130-400); RBC Distribution Width 12.1 % (11.5-14.5); Red Blood Cell (RBC) Count 2.75 mill/uL (4.20-5.40); White Blood Cell (WBC) Count 6.3 thou/uL (4.8-10.8)
[2018-10-20 06:53] LABS: Anion Gap 9 mmol/L (10-20); BUN (Urea Nitrogen) 37 mg/dL (9.8-20.1); Calc. Creatinine Clearance 30 mL/min (70-130); Calcium 8.3 mg/dL (7.8-10.44); Carbon Dioxide 22 mmol/L (23-31); Chloride 113 mmol/L (98-107); Estimated GFR-MDRD 25; Glucose 150 mg/dL (83-110); Potassium 5.5 mmol/L (3.5-5.1); Sodium 138 mmol/L (136-145)
[2018-10-20] MEDS: Saccharomyces boulardii 250 MG CAP PO SCH (09:18)
[2018-10-20] MEDS: Aspirin 325 mg Enteric Coated Tablet PO SCH (09:18)
[2018-10-20] MEDS: guaiFENesin ER 600 MG TAB PO SCH ×2 (09:18→20:58)
[2018-10-20] MEDS: guaiFENesin/Codeine Phosphate 200 mg/20 mg 10 ml UD Cup PO SCH ×4 (09:18→20:58)
[2018-10-20] MEDS: Metoprolol Tartrate 50 MG TAB PO SCH ×2 (09:18→20:58)
[2018-10-20] MEDS: Sodium Chloride Nasal 15 GM TUBE EA NARE SCH ×3 (09:21→20:59)
--- NOTE | 2018-10-20 12:08 | PRG ---
DATE OF SERVICE: 10/20/2018 SUBJECTIVE: This is an 78-year-old female, being seen for acute kidney injury. The patient denied nausea, vomiting, or chest pain. OBJECTIVE: CONSTITUTIONAL: Awake, alert, in no acute distress. GENERAL APPEARANCE AND MENTAL STATUS: Fair. VITAL SIGNS: Afebrile, pulse 70, breathing 16, blood pressure 126/54. HEAD/NECK: Normocephalic. Atraumatic. EYES: EOMI. No deformity. EARS: Clear. No ulcers. NOSE: Intact. No lesions. MOUTH: Clear. No discharge. THROAT: Clear. No exudate. LUNGS: Clear. No crackles. CARDIAC: S1, S2. No rub. ABDOMEN: Benign. Bowel sounds positive. GENITALIA/RECTUM: [place] absent. BACK/EXTREMITIES: Edema 0+. NEUROLOGICAL: Alert and motor intact. SKIN: LYMPHATICS: LABORATORY DATA: Hemoglobin 9.3. Potassium 5.5. ASSESSMENT AND PLAN: 1. Acute kidney injury, stable. 2. Hypertension, stable. 3. Anemia, stable. 4. Metabolic acidosis, stable. 5. Hyperkalemia. Give Kayexalate, repeat potassium. 6. The patient can go home from my aspect. Job ID: [id number]
--- NOTE | 2018-10-20 14:29 | PDOC.PN ---
- Subjective Encounter Start Date: 10/20/18 Encounter Start Time: 14:28 Subjective: feels better but still weak. -: noticed that she did not get Kayexalate untill lat elast night -: has had 2 BMs since then. - Objective Resuscitation Status - Order Detail: 10/18/18 01:43 Resuscitation Status Routine Resuscitation Status: FULL: Full Resuscitation MAR Reviewed: Yes Vital Signs & Weight: Vital Signs (12 hours) Temp Pulse Resp BP Pulse Ox 10/20/18 07:50 70 16 10/20/18 04:37 72 20 93 L 10/20/18 04:00 97.6 F 72 20 109/55 L 92 L Weight Weight 181 lb 9.6 oz I&O: 10/19/18 10/20/18 10/21/18 06:59 06:59 06:59 Intake Total 1500 1580 Output Total 1300 1500 Balance 200 80 Result Diagrams: 10/20/18 06:08 10/20/18 06:08 Additional Labs: Accuchecks 10/20/18 10/20/18 10/19/18 10:55 05:25 20:01 POC Glucose 206 H 75 175 H 10/19/18 17:49 POC Glucose 256 H Microbiology 10/17/18 21:27 Nasopharyngeal swab Respiratory Virus Panel (PCR) - Final 10/17/18 22:29 Urine clean catch Urine Culture - Preliminary Gram Negative [place] 10/17/18 20:30 Venous blood - Right Hand Blood Culture - Preliminary NO GROWTH AT 48 HOURS 10/17/18 20:25 Venous blood - Right Arm Blood Culture - Preliminary NO GROWTH AT 48 HOURS Laboratory Tests 10/17/18 10/17/18 10/18/18 17:44 17:44 00:28 Potassium 6.3 H 5.0 Creatinine 3.33 H 3.04 H B-Natriuretic Peptide 548.2 H 10/19/18 10/19/18 10/19/18 05:08 12:12 19:35 Potassium 5.7 H 6.2 H 6.1 H Creatinine 2.34 H 2.23 H 2.07 H B-Natriuretic Peptide 10/20/18 10/20/18 00:45 06:08 Potassium 6.2 H 5.5 H Creatinine 2.03 H 1.94 H B-Natriuretic Peptide Phys Exam - Physical Examination Constitutional: NAD HEENT: PERRLA, moist MMs, sclera anicteric, oral pharynx no lesions Neck: no nodes, no JVD, supple, full ROM Respiratory: no wheezing, no rales, no rhonchi, clear to auscultation bilateral Cardiovascular: RRR, no significant murmur Gastrointestinal: soft, non-tender, no distention, positive bowel sounds Musculoskeletal: no edema, pulses present Neurological: non-focal, normal sensation, moves all 4 limbs Psychiatric: normal affect, A&O x 3 Skin: no rash Dx/Plan (1) Acute sinusitis Code(s): J01.90 - ACUTE SINUSITIS, UNSPECIFIED Status: Acute Qualifiers: Sinusitis location: maxillary Comment: R Frontal,Maxillary and ethmoidal.On IV ABx. ENT evaluated as well (2) Hyperkalemia Code(s): E87.5 - HYPERKALEMIA Status: Acute Comment: Given kayexalate .improving. monitor (3) DOMINIQUE (acute kidney injury) Code(s): N17.9 - ACUTE KIDNEY FAILURE, UNSPECIFIED Status: Acute Comment: Monitor. DC ARB.Hold Lasix. Nephrology following as well. Discussed w Dr. Sarmiento (4) Dental abscess Code(s): K04.7 - PERIAPICAL ABSCESS WITHOUT SINUS Status: Acute Comment: on IV Abx.clindamycin (5) UTI (urinary tract infection) Status: Acute Comment: H/O multiple UTI in past.discussed w HANNAH Kat-No Rx needed at this time (6) CAD (coronary artery disease) Code(s): I25.10 - ATHSCL HEART DISEASE OF [place] CORONARY ARTERY W/O ANG PCTRS Status: Chronic Qualifiers: Coronary Disease-Associated Artery/Lesion type: bypass graft [place] vs. transplanted heart: [place] heart Associated angina: without angina Qualified Code(s): I25.810 - Atherosclerosis of coronary artery bypass graft(s) without angina pectoris Comment: stable. On BB,statin. Hold ARB due to DOMINIQUE (7) CKD (chronic kidney disease) stage 3, GFR 30-59 ml/min Code(s): N18.3 - CHRONIC KIDNEY DISEASE, STAGE 3 (MODERATE) Status: Chronic (8) DM2 (diabetes mellitus, type 2) Status: Chronic Qualifiers: Diabetes mellitus assisted insulin use: with assisted use Diabetes mellitus complication status: with hyperglycemia Qualified Code(s): E11.65 - Type 2 diabetes mellitus with hyperglycemia; Z79.4 - termite treater (current) use of insulin Comment: Iss .Add lantus BID as Bloos sugar still high.Monitor (9) Dyslipidemia Code(s): E78.5 - HYPERLIPIDEMIA, UNSPECIFIED Status: Chronic Comment: stable. restyart Statin,Vasecpa (10) HTN (hypertension) Code(s): I10 - ESSENTIAL (PRIMARY) HYPERTENSION Status: Chronic Qualifiers: Hypertension type: essential hypertension Comment: stable. Hold ARB for DOMINIQUE. add prn antihypertensives (11) PMR (polymyalgia rheumatica) Code(s): M35.3 - POLYMYALGIA RHEUMATICA Status: Chronic Comment: stable - Plan plan discussed w/ family, continue antibiotics, PT/OT, respiratory therapy, incentive spirometry, out of bed/ambulate, DVT proph w/SCDs add IS.cont IV ABx. Po per ID for DC -: clinicaly better -: rehab eval. -: am labs * . Review of Systems - Review of Systems Constitutional: weakness, malaise. negative: fever, chills, sweats, other ENT: negative: Ear Pain, Ear Discharge, Nose Pain, Nose Discharge, Nose Congestion, Mouth Pain, Mouth Swelling, Throat Pain, Throat Swelling, Other Respiratory: negative: Cough, Dry, Shortness of Breath, Hemoptysis, SOB with Excertion, Pleuritic Pain, Sputum, Wheezing Cardiovascular: negative: chest pain, palpitations, orthopnea, paroxysmal nocturnal dyspnea, edema, light headedness, other Gastrointestinal: negative: Nausea, Vomiting, Abdominal Pain, Diarrhea, Constipation, Melena, Hematochezia, Other Genitourinary: negative: Dysuria, Frequency, Incontinence, Hematuria, Retention , Other Musculoskeletal: negative: Neck Pain, Shoulder Pain, Arm Pain, Back Pain, Hand Pain, Leg Pain, Foot Pain, Other Skin: negative: Rash, Lesions, [place], Bruising, Other Neurological: negative: Weakness, Numbness, Incoordination, Change in Speech, Confusion, Seizures, Other - Medications/Allergies Allergies/Adverse Reactions: Allergies Allergy/AdvReac Type Severity Reaction Status Date / Time amoxicillin [Amoxicillin] Allergy Mild Rash Verified 04/26/18 10:20 cephalexin [Cephalexin] Allergy Mild Rash Verified 04/26/18 10:20 darifenacin hydrobromide Allergy LEG CRAMPS Verified 04/26/18 10:20 [From Enablex] metformin Allergy severe Verified 04/26/18 10:20 diarrhea Penicillins Allergy Verified 04/29/18 13:00 solifenacin [From Vesicare] Allergy Verified 04/26/18 10:20 tolterodine tartrate Allergy LEG CRAMPS Verified 04/26/18 10:20 [From Detrol] Hydralazine IV AdvReac Uncoded 04/26/18 10:20 Medications: Current Medications Acetaminophen (Tylenol) 650 mg PO Q4H PRN PRN Reason: Headache/Fever/Mild Pain (1-3) Last Admin: 10/20/18 05:15 Dose: 650 mg Albuterol Sulfate (Ventolin) 2.5 mg NEB [id number] PRN PRN Reason: Wheezing Last Admin: 10/20/18 04:37 Dose: 2.5 mg Albuterol/Ipratropium (Duoneb) 3 ml NEB BID [facility] Last Admin: 10/20/18 07:50 Dose: 3 ml Aspirin (Ecotrin) 325 mg PO DAILY [facility] Last Admin: 10/20/18 09:18 Dose: 325 mg Atorvastatin Calcium (Lipitor) 20 mg PO HS [facility] Last Admin: 10/19/18 20:03 Dose: 20 mg Clonidine (Catapres) 0.1 mg PO Q4H PRN PRN Reason: sbp>160 Dextrose/Water (Dextrose 50%) 25 gm SLOW IVP PRN PRN PRN Reason: Hypoglycemia Dextrose/Water (Dextrose 50%) 25 gm SLOW IVP ONE [facility] Stop: 10/21/18 02:01 Last Admin: 10/20/18 02:49 Dose: 25 gm Glucagon (Glucagon) 1 mg IM PRN PRN PRN Reason: Hypoglycemia Guaifenesin (Mucinex) 1,200 mg PO Q12HR [facility] Last Admin: 10/20/18 09:18 Dose: 1,200 mg Guaifenesin/Codeine Phosphate (Robitussin Ac) 10 ml PO QID [facility] Last Admin: 10/20/18 09:18 Dose: 10 ml Hydralazine HCl (Apresoline) 10 mg SLOW IVP Q4H PRN PRN Reason: SBP>170 Dextrose/Water (D5w) 1,000 mls @ 0 mls/hr IV .Q0M PRN PRN Reason: Hypoglycemia Clindamycin Phosphate/Dextrose (900 mg/ Device) 50 mls @ 100 mls/hr IVPB Q8HR [facility] Last Admin: 10/20/18 05:16 Dose: 50 mls Insulin Glargine 5 units/ (Miscellaneous Medication) 0.05 mls @ 0 mls/hr SC HS [facility] Last Admin: 10/19/18 20:04 Dose: 0.05 mls Insulin Glargine 5 units/ (Miscellaneous Medication) 0.05 mls @ 0 mls/hr SC QAM [facility] Sodium Chloride (Normal Saline 0.9%) 1,000 mls @ 50 mls/hr IV .Q20H [facility] Insulin Human Lispro (Humalog) 0 units SC .MILD SLIDING SCALE PRN PRN Reason: Mild Correctional Scale Last Admin: 10/18/18 11:08 Dose: 4 units Metoprolol Tartrate (Lopressor) 50 mg PO BID [facility] Last Admin: 10/20/18 09:18 Dose: 50 mg Saccharomyces Boulardii (Florastor) 250 mg PO DAILY [facility] Last Admin: 10/20/18 09:18 Dose: 250 mg Sodium Chloride (Flush - Normal Saline) 10 ml IVF Q12HR [facility] Last Admin: 10/20/18 09:21 Dose: 10 ml Sodium Chloride (Flush - Normal Saline) 10 ml IVF PRN PRN PRN Reason: Saline Flush Sodium Chloride/Aloe Vera ([place] W/Aloe Gel) 0 gm EA NARE TID [facility] Last Admin: 10/20/18 09:21 Dose: 1 applic
[2018-10-20] MEDS: Insulin Glargine 5 UNITS in Pre-Filled Syringe SC SCH ×2 (15:06→20:59)
[2018-10-20] MEDS: Albuterol Sulfate 1.25 MG/3 ML NEB NEB SCH (18:08)
[2018-10-20] MEDS: Atorvastatin Calcium 20 MG TAB PO SCH (20:58)
[2018-10-21] MEDS: Sodium Chloride 0.9% 1,000 ML IV SCH (04:21)
[2018-10-21] MEDS: Clindamycin/D5W 900 MG in Premix Bag 1 BAG IVPB SCH (05:27)
[2018-10-21 05:43] LABS: Anion Gap 12 mmol/L (10-20); BUN (Urea Nitrogen) 29 mg/dL (9.8-20.1); Calc. Creatinine Clearance 37 mL/min (70-130); Calcium 8.5 mg/dL (7.8-10.44); Carbon Dioxide 18 mmol/L (23-31); Chloride 113 mmol/L (98-107); Estimated GFR-MDRD 31; Glucose 173 mg/dL (83-110); Potassium 5.3 mmol/L (3.5-5.1); Sodium 138 mmol/L (136-145)
[2018-10-21] MEDS: Insulin Glargine 5 UNITS in Pre-Filled Syringe SC SCH ×2 (08:42→20:53)
[2018-10-21] MEDS: Metoprolol Tartrate 50 MG TAB PO SCH ×2 (08:43→20:52)
[2018-10-21] MEDS: guaiFENesin ER 600 MG TAB PO SCH ×2 (08:43→20:52)
[2018-10-21] MEDS: Saccharomyces boulardii 250 MG CAP PO SCH (08:43)
[2018-10-21] MEDS: Aspirin 325 mg Enteric Coated Tablet PO SCH (08:43)
[2018-10-21] MEDS: Sodium Chloride Nasal 15 GM TUBE EA NARE SCH ×3 (08:44→21:01)
[2018-10-21] MEDS: guaiFENesin/Codeine Phosphate 200 mg/20 mg 10 ml UD Cup PO SCH ×4 (08:44→20:52)
[2018-10-21] MEDS ORDERED: Amoxicillin/Potassium Clav 875 MG TAB PO SCH (09:00)
--- NOTE | 2018-10-21 09:02 | PDOC.PN ---
- Subjective Encounter Start Date: 10/21/18 Encounter Start Time: 11:40 Subjective: Patient feeling a bit better. Still with lots of drainage and coughing. -: No fever. Weak when getting up with PT. Is agreeable to rehab. - Objective Resuscitation Status - Order Detail: 10/18/18 01:43 Resuscitation Status Routine Resuscitation Status: FULL: Full Resuscitation MAR Reviewed: Yes Vital Signs & Weight: Vital Signs (12 hours) Temp Pulse Resp BP Pulse Ox 10/21/18 07:28 78 24 H 92 L 10/21/18 03:54 97.7 F 68 18 123/58 L 94 L Weight Weight 183 lb 9.6 oz I&O: 10/20/18 10/21/18 10/22/18 06:59 06:59 06:59 Intake Total 1580 360 Output Total 1500 550 Balance 80 -190 Result Diagrams: 10/20/18 06:08 10/21/18 04:16 Additional Labs: Accuchecks 10/21/18 10/20/18 10/20/18 05:41 20:16 16:52 POC Glucose 172 H 218 H 244 H 10/20/18 10:55 POC Glucose 206 H Phys Exam - Physical Examination Constitutional: NAD HEENT: moist MMs Respiratory: no wheezing, no rales, no rhonchi some upper airway noises Cardiovascular: RRR, no significant murmur Gastrointestinal: soft Neurological: non-focal, moves all 4 limbs Psychiatric: normal affect, A&O x 3 Dx/Plan (1) Acute sinusitis Code(s): J01.90 - ACUTE SINUSITIS, UNSPECIFIED Status: Acute Qualifiers: Sinusitis location: maxillary Comment: R Frontal,Maxillary and ethmoidal.On IV ABx. ENT evaluated as well (2) Dental abscess Code(s): K04.7 - PERIAPICAL ABSCESS WITHOUT SINUS Status: Acute Comment: on IV Abx.clindamycin (3) Hyperkalemia Code(s): E87.5 - HYPERKALEMIA Status: Acute Comment: Given kayexalate .improving. can go once potassium below 5 (4) DOMINIQUE (acute kidney injury) Code(s): N17.9 - ACUTE KIDNEY FAILURE, UNSPECIFIED Status: Acute Comment: Monitor. DC ARB.Hold Lasix. Nephrology following as well. Discussed w Dr. Sarmiento (5) CAD (coronary artery disease) Code(s): I25.10 - ATHSCL HEART DISEASE OF [place] CORONARY ARTERY W/O ANG PCTRS Status: Chronic Qualifiers: Coronary Disease-Associated Artery/Lesion type: bypass graft [place] vs. transplanted heart: [place] heart Associated angina: without angina Qualified Code(s): I25.810 - Atherosclerosis of coronary artery bypass graft(s) without angina pectoris Comment: stable. On BB,statin. Hold ARB due to DOMINIQUE (6) DM2 (diabetes mellitus, type 2) Status: Chronic Qualifiers: Diabetes mellitus terminal gauger supervisor insulin use: with terminal gauger supervisor use Diabetes mellitus complication status: with hyperglycemia Qualified Code(s): E11.65 - Type 2 diabetes mellitus with hyperglycemia; Z79.4 - correction (current) use of insulin Comment: Iss .Add lantus BID as Bloos sugar still high.Monitor (7) Dyslipidemia Code(s): E78.5 - HYPERLIPIDEMIA, UNSPECIFIED Status: Chronic Comment: stable. restyart Statin,Vasecpa (8) HTN (hypertension) Code(s): I10 - ESSENTIAL (PRIMARY) HYPERTENSION Status: Chronic Qualifiers: Hypertension type: essential hypertension Qualified Code(s): I10 - Essential (primary) hypertension Comment: stable. Hold ARB for DOMINIQUE. add prn antihypertensives (9) PMR (polymyalgia rheumatica) Code(s): M35.3 - POLYMYALGIA RHEUMATICA Status: Chronic Comment: stable - Plan cont current plan of care, continue antibiotics, PT/OT awaiting PT eval, home vs rehab after that -: d/c once potassium down below 5 * . - Discharge Day Encounter end time: 11:50
--- NOTE | 2018-10-21 12:32 | PRG ---
DATE OF SERVICE: 10/21/2018 SUBJECTIVE: This is an 78-year-old female being seen for acute kidney injury. The patient denied nausea, vomiting, or chest pain. OBJECTIVE: GENERAL: The patient is awake and alert. VITAL SIGNS: Afebrile, pulse 78, breathing 16, blood pressure 123/58. GENERAL APPEARANCE AND MENTAL STATUS: Fair. HEAD/NECK: Normocephalic. Atraumatic. EYES: EOMI. No deformity. EARS: Clear. No ulcers. NOSE: Intact. No lesions. MOUTH: Clear. No discharge. THROAT: Clear. No exudate. LUNGS: Clear. No crackles. CARDIAC: S1, S2. No rub. ABDOMEN: Benign. Bowel sounds positive. GENITALIA/RECTUM: Lofton absent. BACK/EXTREMITIES: Edema 0+. NEUROLOGICAL: Alert and motor intact. SKIN: LYMPHATICS: LABORATORY DATA: Labs reviewed. Hemoglobin 9.3. Potassium 5.3 and bicarb 18. ASSESSMENT AND PLAN: Stage 3 chronic kidney disease, stable. Acute kidney injury, improved. Acute kidney injury is due to acute tubular necrosis. Hypertension, stable. Anemia. Hyperkalemia, we will give Kayexalate. If the potassium is less than 5, the patient can go home. Job ID: [id number]
[2018-10-21] MEDS: Clindamycin 150 MG CAP PO SCH ×2 (15:06→18:07)
[2018-10-21] MEDS: HumaLOG 300 UNITS/3 ML VIAL SC PRN (15:11)
[2018-10-21] MEDS: Atorvastatin Calcium 20 MG TAB PO SCH (20:52)
[2018-10-22] MEDS: Sodium Chloride 0.9% 1,000 ML IV SCH (00:45)
[2018-10-22] MEDS: Clindamycin 150 MG CAP PO SCH ×3 (00:45→12:35)
[2018-10-22 05:11] LABS: Anion Gap 11 mmol/L (10-20); BUN (Urea Nitrogen) 21 mg/dL (9.8-20.1); Calc. Creatinine Clearance 42 mL/min (70-130); Calcium 8.6 mg/dL (7.8-10.44); Carbon Dioxide 20 mmol/L (23-31); Chloride 113 mmol/L (98-107); Estimated GFR-MDRD 36; Glucose 130 mg/dL (83-110); Potassium 4.6 mmol/L (3.5-5.1); Sodium 139 mmol/L (136-145)
[2018-10-22] MEDS: guaiFENesin/Codeine Phosphate 200 mg/20 mg 10 ml UD Cup PO SCH ×3 (09:10→15:54)
[2018-10-22] MEDS: guaiFENesin ER 600 MG TAB PO SCH (09:10)
[2018-10-22] MEDS: Aspirin 325 mg Enteric Coated Tablet PO SCH (09:10)
[2018-10-22] MEDS: Insulin Glargine 5 UNITS in Pre-Filled Syringe SC SCH (09:11)
[2018-10-22] MEDS: Saccharomyces boulardii 250 MG CAP PO SCH (09:11)
[2018-10-22] MEDS: Sodium Chloride Nasal 15 GM TUBE EA NARE SCH ×2 (09:11→15:50)
[2018-10-22] MEDS: Metoprolol Tartrate 50 MG TAB PO SCH (09:11)
--- NOTE | 2018-10-22 12:14 | PRG ---
DATE OF SERVICE: 10/22/2018 SUBJECTIVE: Continues to have significant cough, which is driving her a bit crazy, otherwise, she has no other major complaints. She has questions about her renal situation and her diet. OBJECTIVE: VITAL SIGNS: Temperature 97.9, pulse 71, respirations 16, O2 saturation 95% on room air, BP 148/63. GENERAL APPEARANCE: Age-appropriate female, in no distress. She is awake, alert, oriented, pleasant, and cooperative. HEENT: PERRL. No OP lesions. HEART: Regular rate and rhythm without murmurs, gallops, or rubs. LUNGS: Clear bilaterally. She does continue to have a cough that is wet and bronchitic. ABDOMEN: Soft, nontender, and nondistended. EXTREMITIES: No cyanosis, clubbing, or edema. LABORATORY DATA: Sodium 139, potassium 4.6, chloride 113, CO2 is 20, BUN 21, creatinine is 1.42, glucose 130 and 136. IMPRESSION AND PLAN: 1. Sinusitis, possibly due to a molar infection and dental abscess. The patient is currently on clindamycin for the tooth. Dr. Storey had been consulted and recommended challenging the patient with oral Augmentin, which appeared to have been ordered and then possibly canceled. We will need to get some clarification on that. The patient has amoxicillin allergy. I did not see anything in the record that says the patient actually got it or if she did that she had any adverse reaction to it, so we need to clarify that with Dr. Storey and switch her to the oral Augmentin as the clindamycin will not be as effective for the sinus infection, certainly not at the doses that will be tolerable. 2. Possible dental abscess, seen by the Dentistry and on clindamycin for that. 3. Chronic cough secondary to above. 4. Acute renal injury, likely secondary to acute tubular necrosis. The patient had been on Bactrim prior to this admission. Nephrology is following, numbers are improving. 5. Hyperkalemia secondary to renal insufficiency. She has received Kayexalate. Her number is now down below 5, which was the desired threshold. 6. Diabetes mellitus, well controlled. 7. Coronary artery disease, stable. 8. Dyslipidemia. Continue statin. 9. Hypertension. ARB being held due to the acute kidney injury, may be able to restart soon. 10. Polymyalgia rheumatica, stable. 11. Disposition: We will have the dietitian talk to the patient about a hypokalemic diet. The patient is presumably going to rehab. Awaiting their approval per the protective services case worker, social media coordinator notes from yesterday. I anticipate that would likely be on Wednesday. Job ID: [id number]
[2018-10-22] MEDS: HumaLOG 300 UNITS/3 ML VIAL SC PRN ×2 (12:37→17:20)
--- NOTE | 2018-10-22 14:16 | PRG ---
DATE OF SERVICE: 10/22/2018 SUBJECTIVE: An 78-year-old female being seen for acute kidney injury. The patient denied any nausea, vomiting, or chest pain. OBJECTIVE: CONSTITUTIONAL: On exam, the patient is awake and alert. VITAL SIGNS: Afebrile, pulse 80, breathing 16, and blood pressure was 140/61. GENERAL APPEARANCE AND MENTAL STATUS: Fair. HEAD/NECK: Normocephalic. Atraumatic. EYES: EOMI. No deformity. EARS: Clear. No ulcers. NOSE: Intact. No lesions. MOUTH: Clear. No discharge. THROAT: Clear. No exudate. LUNGS: Clear. No crackles. CARDIAC: S1, S2. No rub. ABDOMEN: Benign. Bowel sounds positive. GENITALIA/RECTUM: Lofton absent. BACK/EXTREMITIES: Edema 0+. NEUROLOGICAL: Alert and motor intact. LABORATORY DATA: Reviewed. ASSESSMENT AND PLAN: 1. Stage 3, chronic kidney disease, stable. 2. Acute kidney injury due to acute tubular necrosis, resolved. 3. Hyperkalemia, stable. I will sign off. Please reconsult as needed. Job ID: [id number]
[2018-10-22 17:40] VITALS: BP 144/67; TEMP 97.9
== END 2018-10-22 20:00 | disposition home or self-care (01) | DRG 683 ==
LOC: ERS 16:19 → ERHOLD 21:51 → 2NO 10-18 14:50
PROVIDERS: ADMIT Internal Medicine; ATTEND Internal Medicine
DX: N17.0 Acute kidney failure with tubular necrosis (principal); N39.0 Urinary tract infection, site not specified; E87.2 Acidosis; E87.5 Hyperkalemia; N18.3 Chronic kidney disease, stage 3 (moderate); D63.1 Anemia in chronic kidney disease; I25.10 Atherosclerotic heart disease of native coronary artery without angina pectoris; M35.3 Polymyalgia rheumatica; I12.9 Hypertensive chronic kidney disease with stage 1 through stage 4 chronic kidney disease, or unspecified chronic kidney disease; J32.8 Other chronic sinusitis; J01.20 Acute ethmoidal sinusitis, unspecified; K04.7 Periapical abscess without sinus; E11.22 Type 2 diabetes mellitus with diabetic chronic kidney disease; K21.9 Gastro-esophageal reflux disease without esophagitis; M81.0 Age-related osteoporosis without current pathological fracture
CPT/HCPCS: 36415; 36416; 71045; 80048; 80053; 81003; 81015; 82550; 83605; 83880; 84484; 85025; 87040; 87086; 87633; 93005; 93306; 94640; 96360; 96361; J1815; J1825; J3490; J7611; J7620

== ENCOUNTER 2018-11-22 12:15 | Outpatient (CLI) | payer MEDICARE, OTHER ==
--- NOTE | 2018-11-22 13:15 | RAD ---
XR Chest Pa Lat STANDARD HISTORY: Bronchitis COMPARISON: 10/17/2018 FINDINGS: The heart size is normal. The lungs are well expanded without focal areas of consolidation, pneumothorax or pleural effusions. Changes of median sternotomy are again seen. There are mild degenerative changes in the spine. IMPRESSION: No radiographic evidence of acute cardiopulmonary process.
== END 2018-11-22 12:16 | disposition home or self-care (01) ==
LOC: BICRAD 12:15
PROVIDERS: ATTEND Family Medicine
DX: J40 Bronchitis, not specified as acute or chronic (principal)
CPT/HCPCS: 36415; 71046; 80053; 85025

== ENCOUNTER 2019-01-20 15:18 | Outpatient (CLI) | payer MEDICARE, OTHER ==
--- NOTE | 2019-01-20 15:50 | MMO ---
Bilateral MAMMO Bilat Screen [facility]. CLINICAL HISTORY: Patient is 78 years old and is seen for screening. The patient has no family history of breast cancer. The patient has no personal history of cancer. VIEWS: The views performed were: bilateral craniocaudal with tomosynthesis and bilateral mediolateral oblique with tomosynthesis. FILMS COMPARED: The present examination has been compared to prior imaging studies performed at [facility] on 08/28/2014, 09/24/2015, 09/25/2016 and 10/06/2017. MAMMOGRAM FINDINGS: There are scattered fibroglandular densities. There are stable benign appearing calcifications seen in both breasts. There are also vascular calcifications. There are no suspicious masses, suspicious calcifications, or new areas of architectural distortion. IMPRESSION: THERE IS NO MAMMOGRAPHIC EVIDENCE OF MALIGNANCY. A ROUTINE FOLLOW-UP MAMMOGRAM IN 1 YEAR IS RECOMMENDED. THE RESULTS OF THIS EXAM WERE SENT TO THE PATIENT. ACR BI-RADS Category 2 - Benign finding MAMMOGRAPHY NOTE: 1. A negative mammogram report should not delay a biopsy if a dominant of clinically suspicious mass is present. 2. Approximately 10% to 15% of breast cancers are not detected by mammography. 3. Adenosis and dense breasts may obscure an underlying neoplasm. Reported by: DAPHNEY VALENTIN MD Electonically Signed: [id number]
== END 2019-01-20 15:19 | disposition home or self-care (01) ==
LOC: BICMAMMO 15:18
PROVIDERS: ATTEND Family Medicine
DX: Z12.31 Encounter for screening mammogram for malignant neoplasm of breast (principal)
CPT/HCPCS: 77063; 77067

== ENCOUNTER 2019-03-02 12:54 | Outpatient (CLI) | payer MEDICARE, OTHER ==
--- NOTE | 2019-03-02 13:56 | RAD ---
LUMBAR SPINE 4 VIEWS: Date: 03/02/19 HISTORY: Low back pain. COMPARISON: Radiograph dated 07/07/18. FINDINGS: Posterior spinal fusion hardware L3-4 with interbody cage. The anterolisthesis of L3-4 is similar. No migration of the interbody cage. Bone graft material along either side of the L3-4 level. Mild splenic artery calcifications. There is loss of the anterior L4-5 disc space. 2 mm L4 over L5 re trolisthesis without significant translation with flexion or extension. Moderate narrowing of the L2-3 disc space. IMPRESSION: Similar postoperative appearance of the spine. No significant translation with flexion or extension. POS: CET
== END 2019-03-02 12:55 | disposition home or self-care (01) ==
LOC: BICRAD 12:54
PROVIDERS: ATTEND Neurological Surgery
DX: M54.5 Low back pain (principal); Z98.890 Other specified postprocedural states
CPT/HCPCS: 72110

== ENCOUNTER 2019-03-21 07:40 | Outpatient (CLI) | payer MEDICARE, OTHER ==
--- NOTE | 2019-03-21 08:26 | RAD ---
Lateral neutral, flexion, and extension radiographs of the cervical spine: 03/21/2019 HISTORY: Neck pain with bilateral cervical radiculopathy, right greater than left FINDINGS: On the neutral lateral examination there is mild anterolisthesis at C4-5 measuring 3 mm. Fl exion imaging demonstrates anterolisthesis at C4-5 measuring 4 mm. On the extension imaging the anterolisthesis at C4-5 measures approximately 3 mm. There is disc space narrowing with degenerative endplate change as well as anterior and posterior ost eophyte at C5-6. There is prominent multilevel bilateral facet hypertrophy within the mid cervical spine, including the C3-4, C4-5, and C5-6 levels. No prevertebral soft tissue swelling. IMPRESSION: Multilevel cervical spine degenerative change. There is anterolisthesis at C4-5, most pro minent with flexion.
--- NOTE | 2019-03-21 09:44 | MRI ---
MRI CERVICAL SPINE WITHOUT CONTRAST: INDICATIONS: History of cervical radiculopathy. Pain in both arms, right greater than left. History of polymyalgia . COMPARISON: Prior MRI cervical spine dated 11/10/2013 from [facility]. FINDINGS: The visualized aspects of the posterior fossa appear within normal limits. Spine alignment is within normal limits. Bone marrow signal intensity appears within normal limits. Prevertebral soft tissue s appear within normal limits. C2-C3: There is no appreciable central canal or neural foraminal narrowing. C3-C4: There is moderate to severe left and moderate right facet joint degenerative change. There is mild uncovertebral hypertrophy. There is a mild broad-based bulge. There is stable mild bilateral domenica ral foraminal narrowing. C4-C5: There is severe right and moderate to severe left neural foraminal narrowing. There is an asym metric to the right broad-based disk bulge with uncovertebral hypertrophy inducing mild right neural foraminal narrowing, which is stable. C5-C6: There is a broad-based bulge with uncovertebral hypertrophy and facet degenerative change dianna cing mild to moderate central canal narrowing with mild ventral effacement of the spinal cord which a ppears similar to the prior exam. There is moderate to severe right and mild to moderate left neural foraminal narrowing, right greater than left, that appears similar to the prior exam. C6-C7: There is no appreciable central canal or neural foraminal narrowing. C7-T1: There is no appreciable central canal or neural foraminal narrowing. IMPRESSION: Moderate to severe right and mild to moderate left neural foraminal narrowing at C5-C6 with mild to m oderate central canal narrowing and mild ventral effacement of the spinal cord. POS: Jalen
== END 2019-03-21 07:41 | disposition home or self-care (01) ==
LOC: TBSIIMAG 07:40
PROVIDERS: ATTEND Neurological Surgery
DX: M47.22 Other spondylosis with radiculopathy, cervical region (principal); M35.3 Polymyalgia rheumatica; M43.12 Spondylolisthesis, cervical region; M48.02 Spinal stenosis, cervical region
CPT/HCPCS: 72040; 72141

== ENCOUNTER 2019-05-08 08:06 | Outpatient (CLI) | payer MEDICARE, OTHER ==
--- NOTE | 2019-05-08 11:07 | MRI ---
MRI RIGHT SHOULDER: Date: 05/08/19 PROVIDED CLINICAL HISTORY: Right shoulder pain. FINDINGS: There is full thickness, essentially full width retracted tearing of the supraspinatus tendon with ab out 1.7 cm of retraction. The components of the rotator cuff appear otherwise intact. The long head b iceps tendon appears intact. There is medial subluxation of the long head biceps tendon that may refl ect associated bicipital sling injury. The glenoid labrum and glenohumeral articular cartilage are suboptimally evaluated in the absence of joint distention, but appear grossly normal. The amount of fluid within the glenohumeral joint is ph ysiologic. There is greater than physiologic subacromial subdeltoid bursal fluid. Rotator cuff muscular volume appears preserved. Acromioclavicular joint osteoarthrosis is demonstrate d, producing mass effect upon the subjacent supraspinatus. No focal concerning regional marrow or mus cular signal abnormality is evident. IMPRESSION: 1. Full thickness, full width retracted supraspinatus tendon tear. 2. Possible bicipital sling injury. 3. Acromioclavicular joint osteoarthrosis. POS: OFF
== END 2019-05-08 08:07 | disposition home or self-care (01) ==
LOC: BICMRI 08:06
PROVIDERS: ATTEND Specialist
DX: M67.911 Unspecified disorder of synovium and tendon, right shoulder (principal); M75.101 Unspecified rotator cuff tear or rupture of right shoulder, not specified as traumatic; M19.011 Primary osteoarthritis, right shoulder

== ENCOUNTER 2019-05-22 08:28 | Outpatient (CLI) | payer MEDICARE, OTHER ==
--- NOTE | 2019-05-22 10:39 | BD ---
DEXA BONE DENSITY STUDY: Date: 05/22/19 HISTORY: Osteoporosis screening. COMPARISON: None. FINDINGS: BMD (gm/cm2) Left Femoral Neck: 0.744 T-Score: -0.9 Z-Score: 1.4 Total Femur: 0.707 T-Score: -1.9 Z-Score: 0.2 Left Forearm: Distal 0.415 T-Score: -0.5 Z-Score: 1.9 1/3 0.601 T-Score: -1.5 Z-Score: 1.7 Total 0.497 T-Score: -1.5 Z-Score: 1.6 WHO Classification: Osteopenia. 10 YEAR FRACTURE RISK: Major osteoporotic fracture: 21% Hip fracture: 4.2% IMPRESSION: Osteopenia with elevated fracture risk as above. POS: JU
== END 2019-05-22 08:29 | disposition home or self-care (01) ==
LOC: BICMAMMO 08:28
PROVIDERS: ATTEND Internal Medicine Rheumatology
DX: M81.0 Age-related osteoporosis without current pathological fracture (principal); M85.89 Other specified disorders of bone density and structure, multiple sites
CPT/HCPCS: 77080

== ENCOUNTER 2019-08-12 11:35 | Inpatient (IN) | payer MEDICARE, OTHER ==
--- NOTE | 2019-08-12 12:14 | RAD ---
EXAM: Single view of the chest HISTORY: Altered mental status COMPARISON: 10/17/2018 FINDINGS: Single view of the chest shows a normal sized cardiomediastinal silhouette. The patient is status post sternotomy. There is no evidence of consolidation, mass, or pleural effusion. The bones are unremarkable. IMPRESSION: No evidence of acute cardiopulmonary disease
[2019-08-12 12:22] LABS: #Eosinphils 0.2 thou/uL (0.0-0.7); #Lymphocytes 1.4 thou/uL (1.20-3.40); #Monocytes 0.6 thou/uL (0.11-0.59); #Neutrophils 4.3 thou/uL (1.40-6.50); %Basophils 0.7 % (0.0-1.0); %Eosinophils 2.4 % (0.0-10.0); %Lymphocytes 21.9 % (21.0-51.0); %Monocytes 9.6 % (0.0-10.0); %Neutrophils 65.4 % (42.0-75.0); Hemoglobin 12.4 g/dL (12.0-16.0); Mean Corpuscular HGB CONC 34.2 g/dL (32.0-36.0); Mean Corpuscular Hemoglobin 36.2 pg (27.0-31.0); Mean Platelet Volume 8.8 fL (7.4-10.4); Platelet Count 221 thou/uL (130-400); RBC Distribution Width 12.1 % (11.5-14.5); Red Blood Cell (RBC) Count 3.44 mill/uL (4.20-5.40); White Blood Cell (WBC) Count 6.5 thou/uL (4.8-10.8)
[2019-08-12 12:40] LABS: MDiff Complete? YES; Macrocytosis SLIGHT = 6-15 cells (100X) (0-5/hpf); Platelet Morphology Comment Appears Adequate
[2019-08-12 12:50] LABS: ALT (SGPT) 33 U/L (8-55); AST (SGOT) 30 U/L (5-34); Albumin 4.1 g/dL (3.4-4.8); Alkaline Phosphatase 135 U/L (40-110); Anion Gap 17 mmol/L (10-20); BUN (Urea Nitrogen) 40 mg/dL (9.8-20.1); Bilirubin, Total 0.5 mg/dL (0.2-1.2); Calc. Creatinine Clearance 0 mL/min (70-130); Calcium 10.9 mg/dL (7.8-10.44); Carbon Dioxide 26 mmol/L (23-31); Chloride 103 mmol/L (98-107); Estimated GFR-MDRD 22; Globulin 2.8 g/dL (2.4-3.5); Glucose 258 mg/dL (83-110); Potassium 4.5 mmol/L (3.5-5.1); Protein, Total 6.9 g/dL (6.0-8.3); Sodium 141 mmol/L (136-145)
[2019-08-12 12:58] LABS: Bacteria/HPF 4+ HPF (None Seen); Bilirubin Negative (Negative); Blood, Urine Negative (Negative); Clarity Turbid (Clear); Glucose, Urine (Dipstick) Normal (Negative); Leukocyte 500 Leu/uL (Negative); Nitrite 1+ (Negative); Protein, Urine (Dipstick) 20 mg/dL (Neg-Trace); Urobilinogen Normal mg/dL (Less than 2); WBC/HPF Greater than 50 HPF (0-3)
[2019-08-12 13:04] LABS: CKMB 1.9 ng/mL (0-6.6)
--- NOTE | 2019-08-12 13:08 | CT ---
EXAM: CT brain without contrast HISTORY: Tremor COMPARISON: 11/06/2013 TECHNIQUE: Multiple contiguous axial images were obtained and a CT of the brain without contrast. FINDINGS: There are scattered hypodensities in the subcortical and periventricular white matter consi stent with small vessel ischemic disease. There is no evidence of hydrocephalus, intracranial hemorrhage, or extra-axial fluid collection. The calvarium and overlying soft tissues are unremarkable. There is absence of the medial wall of the right maxillary sinus. IMPRESSION: No evidence of acute intracranial abnormality
[2019-08-12] MEDS ORDERED: Magnesium Oxide 400 MG TAB PO SCH (13:15)
[2019-08-12] MEDS ORDERED: Aspirin Chewable 81 MG TAB ONE ×2 (13:29→13:30)
[2019-08-12] MEDS ORDERED: Magnesium 2 GM/50 ML BAG (IN WATER) ONE (13:30)
[2019-08-12] MEDS ORDERED: Ondansetron ODT 4 MG TAB PO PRN (14:29)
[2019-08-12] MEDS ORDERED: Zolpidem Tartrate 5 MG TAB PO PRN (14:29)
[2019-08-12] MEDS ORDERED: Dextrose 50% Abboject 50 ML SYRINGE SLOW IVP PRN (14:29)
[2019-08-12] MEDS ORDERED: Dextrose 5% in Water 1,000 ML IV PRN (14:29)
[2019-08-12 15:22] LABS: Troponin I 0.018 ng/mL (< 0.028)
--- NOTE | 2019-08-12 15:32 | HP ---
PRIMARY CARE PROVIDER: Isaac Taylor MD The patient referred to the [facility] Hospitalist Service, i.e., Emergency Department. CHIEF COMPLAINT: "I felt bad, weak." HISTORY OF PRESENT ILLNESS: The patient states she has been getting worse and worse over about 1 week, increasing lethargy, weakness, occasional sweats. She has had trouble walking. She has had no fever or chills. She was seen and evaluated in the emergency room and referred to the Hospitalist Service. PAST MEDICAL HISTORY: Pertinent for rheumatoid arthritis on chronic steroid therapy, coronary artery disease, post coronary artery bypass graft, type 2 diabetes with retinopathy, chronic kidney disease stage 3, polymyalgia rheumatica, and dyslipidemia. PAST SURGICAL HISTORY: Bilateral tubal ligation, knee surgery, hysterectomy, coronary artery bypass graft, left knee replacement, lumbar decompression laminectomy at L3 through L5. ALLERGIES: TO MEDICATIONS INCLUDES AMOXICILLIN, CEPHALEXIN, DARIFENACIN, HYDRALAZINE, METFORMIN, PHENERGAN, SOLIFENACIN, TOLTERODINE, AND SULFA. CURRENT MEDICATIONS: 1. Aspirin 81 mg a day. 2. Humalog per sliding scale. 3. Tresiba Flex dose. 4. Lasix 20 mg a day. 5. Prednisone 5 mg four times a day. 6. Losartan 25 mg a day. 7. Metoprolol 50 mg a day. 8. Leflunomide 20 mg a day. 9. Rocaltrol 0.25 mcg oral. FAMILY HISTORY: Father had heart disease and hypertension. Mother had hypertension and colon cancer. SOCIAL HISTORY: Nonsmoker, nondrinker. She is full code status. Her son Silvino Garrison is with her and is her designated surrogate decision maker. REVIEW OF SYSTEMS: GENERAL: No headaches, dizziness, or fainting. EYES: Blurred vision at times, worse at the present time. EAR, NOSE, AND THROAT: No ear pain or drainage. No nasal bleeding. No trouble swallowing. CARDIAC: No chest pain, orthopnea, or paroxysmal nocturnal dyspnea. RESPIRATION: No cough, wheezing, or asthma. GASTROINTESTINAL: Occasional nausea. No vomiting. No abdominal pain. No diarrhea. No melena. GENITOURINARY: No hematuria or dysuria. MUSCULOSKELETAL: No pain or swelling currently in her arms or legs. She does have chronic back pain and has migratory joint pains. Has a history of polymyalgia rheumatica, history of rheumatoid arthritis. NEUROLOGICAL: She has a tremor in both hands for many years. She states it has been worse over the past week. PSYCHIATRIC: No anxiety or depression. SKIN: No bruising, bleeding, or rash. HEME/LYMPH: No tender or swollen lymph nodes in axilla, inguinal, or cervical area. PHYSICAL EXAMINATION: GENERAL: Alert, cooperative, pleasant lady. VITAL SIGNS: Blood pressure 126/60, pulse 77, respirations 18, temperature 92, and room air sat 93%. HEENT: Examination of her head, eyes, ears, nose, and throat revealed pupils are equal, round, and reactive with lens implants. Extraocular movements are intact. Sclerae are white. Tympanic membranes clear. Nose is clear. Oral mucous membranes are dry. Oral hygiene is adequate. NECK: Supple without jugular venous distention, adenopathy or thyromegaly. CHEST: Clear to auscultation and percussion. HEART: Has a regular rate and rhythm. First and second heart sounds are clear. There are no appreciated murmurs or gallops. ABDOMEN: Soft. Bowel sounds are normal. There is no hepatosplenomegaly. No mass. No rebound. EXTREMITIES: Reveal no cyanosis, clubbing, or edema. Pulses, carotid, radial, femoral, and dorsalis pedis pulses are intact. SKIN: Warm and dry without bruises or rash. HEME/LYMPH: Reveal no tender or swollen lymph nodes in axilla, inguinal, or cervical area. NEUROLOGICAL: Cranial nerves II through XII are intact. Moves all extremities. DIAGNOSTIC DATA: EKG, regular sinus rhythm, Q-wave in V2. No acute ST-T abnormality. Personally reviewed chest x-ray, no cardiomegaly, CHF, or infiltrate. She has had changes of median sternotomy. Brain CT reveals no acute abnormality. Creatinine is 2.18, BUN 40. Lytes are balanced. Blood sugar is elevated to 258 , calcium is 10.9, and magnesium was low at 1.2. Troponin 0.03. CBC was unremarkable except for some mild macrocytosis. Urinalysis reveals too many to count white cells, positive leukocyte esterase and nitrite. ADMITTING DIAGNOSES: 1. Acute urinary tract infection. 2. Chronic kidney disease, stage 3. 3. Diabetes mellitus, type 2. 4. Coronary artery disease. 5. Hypertension. PLAN: 1. Full admit. She will need 2 overnights for urine culture and sensitivities to decide on antibiotics. She will be started on Cipro 200 mg b.i.d. IV. 2. Accu-Cheks and sliding scale will be followed. Insulin doses will be ascertained from the family and will be continued. 3. She has some borderline abnormal troponins. Serial troponins will be done. 4. Because of her symptomatology, thyroid function test will be done. The patient will be re-evaluated at reasonable intervals. Job ID: [id number] [facility]
[2019-08-12 15:35] LABS: Thyroid Stimulating Hormone 2.1782 uIU/mL (0.35-4.94)
[2019-08-12 18:02] LABS: Free Thyroxine Index 1.83 (1.4-3.1); T4 6.4 ug/dL (4.87-11.72)
[2019-08-12 18:17] LABS: Troponin I 0.021 ng/mL (< 0.028)
[2019-08-12 18:41] VITALS: BMI 31.0
[2019-08-12] MEDS: Metoprolol Tartrate 50 MG TAB PO SCH (20:38)
[2019-08-12] MEDS: Acetaminophen 325 MG TAB PO PRN (20:41)
[2019-08-12] MEDS: traMADol HCl 50 MG TAB PO PRN (20:41)
[2019-08-12] MEDS: HumaLOG 300 UNITS/3 ML VIAL SC PRN (20:43)
[2019-08-12] MEDS: cycloSPORINE 0.05% Ophthalmic Droperette EA EYE SCH (20:54)
[2019-08-12] MEDS: Polyethylene Glycol OPTH DROP 15 ML BOT EA EYE SCH (20:54)
[2019-08-13] MEDS: Ciprofloxacin Lactate/D5W 200 MG in Premix Bag 1 BAG IVPB SCH ×2 (02:01→14:28)
[2019-08-13 04:24] LABS: #Basophils 0.1 thou/uL (0.0-0.2); #Eosinphils 0.2 thou/uL (0.0-0.7); #Lymphocytes 2.5 thou/uL (1.20-3.40); #Monocytes 0.8 thou/uL (0.11-0.59); %Basophils 0.8 % (0.0-1.0); %Eosinophils 2.3 % (0.0-10.0); %Lymphocytes 38.8 % (21.0-51.0); %Monocytes 11.8 % (0.0-10.0); %Neutrophils 46.2 % (42.0-75.0); Hemoglobin 11.3 g/dL (12.0-16.0); Mean Corpuscular HGB CONC 33.8 g/dL (32.0-36.0); Mean Corpuscular Hemoglobin 36.1 pg (27.0-31.0); Mean Platelet Volume 8.3 fL (7.4-10.4); Platelet Count 191 thou/uL (130-400); RBC Distribution Width 11.8 % (11.5-14.5); Red Blood Cell (RBC) Count 3.14 mill/uL (4.20-5.40); White Blood Cell (WBC) Count 6.4 thou/uL (4.8-10.8)
[2019-08-13 04:48] LABS: Anion Gap 14 mmol/L (10-20); BUN (Urea Nitrogen) 39 mg/dL (9.8-20.1); Calc. Creatinine Clearance 30 mL/min (70-130); Calcium 9.7 mg/dL (7.8-10.44); Carbon Dioxide 28 mmol/L (23-31); Chloride 101 mmol/L (98-107); Estimated GFR-MDRD 25; Glucose 172 mg/dL (83-110); Potassium 4.7 mmol/L (3.5-5.1); Sodium 138 mmol/L (136-145)
[2019-08-13] MEDS ORDERED: Sodium Chloride 0.9% 10 ML ONE (08:08)
--- NOTE | 2019-08-13 08:15 | PDOC.HOSPP ---
- Subjective Encounter Date: 08/13/19 Encounter Time: 08:12 Subjective: feels a little better, no fever, chills - Objective Vital Signs & Weight: Vital Signs (12 hours) Temp Pulse Resp BP Pulse Ox 08/13/19 05:20 97.5 F L 70 16 128/58 L 94 L Weight Weight 186 lb 9.6 oz Result Diagrams: 08/13/19 04:04 08/13/19 04:04 Additional Labs: Accuchecks 08/13/19 08/12/19 08/12/19 05:46 20:35 17:29 POC Glucose 161 H 296 H 159 H Hospitalist ROS - Medication Medications: Active Medications Generic Name Dose Route Start Last Admin Trade Name Freq PRN Reason Stop Dose Admin Acetaminophen 650 mg 08/12/19 14:29 08/12/19 20:41 Tylenol PO 650 mg Q4H PRN Administration Headache/Fever/Mild Pain (1-3) Cyclosporine 0 ml 08/12/19 21:00 08/12/19 20:54 Restasis EA EYE 0.4 ml BID ARAVIND Administration Ciprofloxacin/Dextrose 200 mg/ 100 mls @ 100 mls/hr 08/13/19 02:00 08/13/19 02:01 Device IVPB 100 mls 0200,[id number] ARAVIND Administration Insulin Human Lispro 0 units 08/12/19 19:28 08/12/19 20:43 Humalog SC 3 unit .BEDTIME SLIDING SC PRN Administration Bedtime Correctional Scale Metoprolol Tartrate 50 mg 08/12/19 21:00 08/12/19 20:38 Lopressor PO 50 mg BID ARAVIND Administration Propylene Glycol 1 drop 08/12/19 21:00 08/12/19 20:54 Systane Opth Drop 15ml Bot EA EYE 1 drp QID ARAVIND Administration Tramadol HCl 50 mg 08/12/19 19:21 08/12/19 20:41 Ultram PO 50 mg Q6H PRN Administration Pain 4-6 - Exam General Appearance: awake alert Neck: no JVD Heart: RRR, no murmur Respiratory: CTAB Gastrointestinal: soft, normal bowel sounds Extremities: no edema Hosp A/P (1) DM type 2, uncontrolled, with renal complications Code(s): E11.29 - TYPE 2 DIABETES MELLITUS W OTH DIABETIC KIDNEY COMPLICATION; E11.65 - TYPE 2 DIABETES MELLITUS WITH HYPERGLYCEMIA Status: Acute (2) UTI (urinary tract infection) Status: Acute Qualifiers: Urinary tract infection type: site unspecified Hematuria presence: without hematuria Qualified Code(s): N39.0 - Urinary tract infection, site not specified (3) CKD (chronic kidney disease) stage 3, GFR 30-59 ml/min Code(s): N18.3 - CHRONIC KIDNEY DISEASE, STAGE 3 (MODERATE) Status: Chronic (4) Dyslipidemia Code(s): E78.5 - HYPERLIPIDEMIA, UNSPECIFIED Status: Chronic (5) HTN (hypertension) Code(s): I10 - ESSENTIAL (PRIMARY) HYPERTENSION Status: Chronic Qualifiers: Hypertension type: essential hypertension - Plan HgA1c pending, cont accu/ss/etc urine C&S pending- cont IV cipro
[2019-08-13 08:39] LABS: Hemoglobin A1c 7.9 % (4.0-6.0)
[2019-08-13] MEDS: Metoprolol Tartrate 50 MG TAB PO SCH ×2 (10:21→21:11)
[2019-08-13] MEDS: Saccharomyces boulardii 250 MG CAP PO SCH (10:22)
[2019-08-13] MEDS: HumaLOG 300 UNITS/3 ML VIAL SC PRN ×4 (10:24→21:23)
[2019-08-13] MEDS: Polyethylene Glycol OPTH DROP 15 ML BOT EA EYE SCH ×4 (10:25→21:14)
[2019-08-13] MEDS: cycloSPORINE 0.05% Ophthalmic Droperette EA EYE SCH ×2 (12:23→22:18)
[2019-08-13] MEDS: traMADol HCl 50 MG TAB PO PRN (21:12)
[2019-08-13] MEDS: Acetaminophen 325 MG TAB PO PRN (21:12)
[2019-08-14] MEDS: Ciprofloxacin Lactate/D5W 200 MG in Premix Bag 1 BAG IVPB SCH (02:42)
[2019-08-14] MEDS ORDERED: Furosemide 20 MG TAB PO PRN (08:44)
[2019-08-14] MEDS ORDERED: Aspirin Chewable 81 MG TAB PO SCH (09:00)
[2019-08-14] MEDS ORDERED: Losartan 25 MG TAB PO SCH (09:00)
[2019-08-14] MEDS ORDERED: predniSONE 5 MG TAB PO SCH (09:00)
[2019-08-14] MEDS ORDERED: Non-Formulary Item 1 EACH (Insulin Lispro [Humalog Kwikpen U-100] 100 UNIT) SQ SCH (09:00)
[2019-08-14] MEDS ORDERED: Leflunomide 10 mg Tablet PO SCH (09:00)
[2019-08-14] MEDS ORDERED: Non-Formulary Item 1 EACH (Insulin Degludec [Tresiba Flextouch U-100] 100 UNIT) SQ SCH (09:00)
[2019-08-14] MEDS ORDERED: Magnesium Oxide 400 MG TAB PO SCH (09:00)
[2019-08-14] MEDS ORDERED: Aspirin 325 MG TAB PO SCH (09:00)
[2019-08-14] MEDS ORDERED: HumaLOG 300 UNITS/3 ML VIAL SC SCH (09:00)
[2019-08-14] MEDS: Metoprolol Tartrate 50 MG TAB PO SCH (09:21)
[2019-08-14] MEDS: Saccharomyces boulardii 250 MG CAP PO SCH (09:22)
[2019-08-14] MEDS: Polyethylene Glycol OPTH DROP 15 ML BOT EA EYE SCH ×3 (09:25→17:27)
[2019-08-14] MEDS: Acetaminophen 325 MG TAB PO PRN (09:29)
[2019-08-14] MEDS: traMADol HCl 50 MG TAB PO PRN (09:30)
--- NOTE | 2019-08-14 10:21 | CON ---
DATE OF CONSULTATION: PRIMARY CARE DOCTOR: Rajat Mendoza MD PRIMARY CNC MACHINIST: Marine Nava MD PRIMARY TANK HOUSE SUPERVISOR: Dr. Chavez. PRIMARY PAIN DOCTOR: Dr. Boyd. PRIMARY PRESIDENT AND CMO: Dr. Kaur. PRIMARY NEUROLOGIST: Dr. Alexander for the back surgery REASON FOR CARDIOLOGY CONSULT: Rule out ACS and the patient request. HISTORY OF PRESENT ILLNESS: Ms. Garrison is a very present 79-year-old female with a significant history of coronary artery disease, history of CABG x4 in 2013, hypertension, diabetes, CKD, chronic kidney disease, hyperlipidemia, localized edema, the patient has had a feeling of tired for quite a while. However, last week, she started feeling more weak and last Wednesday, she started feeling shakiness and broken up sweat. Due to that reason patient decided to present to the emergency department for further evaluation and treatment. The patient denied chest pain, heaviness, tightness, dizziness, lightheadedness, or any other cardiac complaints. She has chronic intermittent shortness of breath. Last shortness of breath was last Wednesday. The patient cannot recall what she was doing that night. The patient also had a history of low vitamin D and calcium level. She has seen Dr. Kaur for those and last blood work showed the patient's calcium level was stable and vitamin D level was stable per patient. The patient was found to have UTI. The patient is on IV antibiotic, which is managed by primary care doctor. At this moment, the patient denied chest pain, heaviness, tightness, shortness of breath, or any other cardiac complaints. The patient had echocardiograms done September 2018 with EF 60% to 65%, mild mitral valve regurgitation, MAC, mild to moderate tricuspid regurgitation, and mild pulmonary insufficiency. The patient had a stress test done in September 2018, with no ischemia with EF 69%. The patient had a CABG x4 in May 2014 with LUCAS to mid LAD, small radial artery to the diagonal, SVG to OM and SVG to RCA. PAST MEDICAL HISTORY: CAD with history of CABG x4 in 2013, hypertension, hyperlipidemia, first degree AV block, localized edema, status post left GSV closure in 2012, diabetes type 2, CKD which is managed by Dr. Chavez. The patient had chronic back pain, which is managed by Dr. Boyd. SURGICAL HISTORY: CABG x4 in 2013, bilateral tubal ligation, hysterectomy, knee surgery, left GSV closure in 2012, back surgery in April [address] Alexander. FAMILY HISTORY: The patient's mother due to cancer and she also had a history of hypertension. The patient's father has hypertension also. SOCIAL HISTORY: She lives by herself at home and the patient's son visit her every weekend. She has good friend support and her neighbors. She denied ETOH, tobacco, or illicit drug abuse. She used a cane, but she does not move much because she feel very scared and afraid of fall. She has a walker, but she does not want to use. She drive herself. ALLERGIES: SHE IS ALLERGIC TO AMOXICILLIN, CEPHALEXIN, DARIFENACIN HYDROBROMIDE, METFORMIN, PROMETHAZINE, TOLTERODINE TARTRATE. HOME MEDICATION: 1. Florastor 250 mg once a day. 2. Co Q-10 100 mg twice a day. 3. Aspirin 81 mg once a day. 4. Furosemide 20 mg once a day as needed. 5. Metoprolol tartrate 50 mg twice a day. 6. Restasis one drop each eye twice a day. 7. Losartan 25 mg once a day. 8. Tylenol 650 every 4 hours as needed. 9. Repatha 140 mg subcu every two weeks. 10. Systane 1 drop 4 times a day. 11. Arava 10 mg once a day. 12. Insulin Humalog 100 units t.i.d. or depend on the sliding scale. 13. Prednisone 5 mg twice a day. 14. Mucinex 1200 every 12 hours as needed. 15. Robitussin AC 10 mL every 4 hours as needed. REVIEW OF SYSTEMS: A 12-point review of system otherwise mentioned in HPI. PHYSICAL EXAMINATION: VITAL SIGNS: Blood pressure 121/63, temperature 97.7, pulse is 70, first degree sinus rhythm, O2 saturation 93% on room air, respiratory rate 16. GENERAL: The patient is alert and oriented x4, not in acute distress. HEENT: Normocephalic, atraumatic. EYES: Extraocular muscle movement intact. She wears glasses. ENT: Mouth, oral and nasal mucosa moist without lesion. NECK: Supple. Normal range of motion. No JVD. RESPIRATORY: Clear to auscultate bilaterally. No wheezing, rales, or rhonchi noted. CARDIOVASCULAR: Regular rate and rhythm. Normal S1, S2. There is no S3 or S4. No significant murmur, hives, or thrill noted. 2+ pulses in bilateral upper and lower extremities. No edema in extremities. Carotid pulses are present without bruit or thrill. ABDOMEN: Soft, nontender. No mass to palpitate. Bowel sounds are present. The patient is intermittently nauseated. MUSCULOSKELETAL: The patient able to move all extremities. No difficulty. The patient denied claudication. The patient had cramping at night. SKIN: Warm and dry. No lesion, rash, or erythema noted. NEUROLOGIC: The patient is alert and oriented x4. Nonfocal. PSYCHIATRIC: The patient's mood is appropriate. LABORATORY DATA: WBC 6.4, hemoglobin 11.3, hematocrit 33.6, platelet 191. Hemoglobin A1c 7.9. It is normal for her. Sodium 138, potassium 4.7, BUN 39, creatinine 1.95. TSH 2.1782, T3 29, T4 6.4, free T4 1.83. Troponin 0.031, 0.018, 0.021. Magnesium 1.2. AST 38, ALT 33, calcium 9.7, CK-MB 1.9. Alkaline phosphate 135. Chest x-ray shows no evidence of acute cardiopulmonary disease and the patient's CT brain shows no evidence of acute intracranial abnormality. ASSESSMENT AND PLAN: 1. Urinary tract infection, which is managed by primary care doctor. She is on IV antibiotic. 2. Hypomagnesium. Patient's magnesium level on August 12 was 1.2. The patient received 2 g IV magnesium at the ER on August 12, 2019. Another magnesium level check is going to be done today. If less than 2.0, the patient might need another magnesium supplement. 3. Coronary artery disease with history of CABG x4 in 2013. The patient is asymptomatic. The patient has stable EKG. The patient's vital signs are stable at this moment. The patient is on aspirin, metoprolol, losartan, and she is on also on Repatha at home. 4. Hypertension. Patient's blood pressure is stable at this moment with current medication. 5. Hyperlipidemia. She is on Repatha at home. 6. Insulin-dependent diabetes which is managed by primary care doctor. Her hemoglobin A1c level is 7.9, which is normal for the patient, strongly recommend to watch her diet. 7. Intermittently nauseated. She has been nauseated for quite a while, possible gastroparesis. She might need further GI evaluation. Thank you very much for Cardiology Service to participate in the care of this patient. We will follow along with patient's care team and make further recommendations as appropriate. Job ID: [id number]
[2019-08-14] MEDS: HumaLOG 300 UNITS/3 ML VIAL SC SCH ×2 (11:20→15:32)
[2019-08-14] MEDS: cycloSPORINE 0.05% Ophthalmic Droperette EA EYE SCH (11:23)
[2019-08-14] MEDS: HumaLOG 300 UNITS/3 ML VIAL SC PRN (14:05)
--- NOTE | 2019-08-14 14:27 | DIS ---
DATE OF ADMISSION: 08/12/2019 DATE OF DISCHARGE: 08/14/[address] Rajat Mendoza. DISPOSITION: Discharged home. FINAL DIAGNOSES: Urinary tract infection, type 2 diabetes with hyperglycemia, ataxia, chronic back pain, coronary artery disease, and chronic kidney disease stage 3 to 4. DISCHARGE MEDICATIONS: 1. Cipro 250 p.o. b.i.d. for one week for her UTI. 2. Insulin lispro per sliding scale with meals. 3. Insulin degludec 24 units subcu daily. 4. Prednisone 5 mg p.o. b.i.d. 5. Arava 10 mg p.o. daily. 6. Aspirin 81 mg a day. 7. Lasix 20 mg a day p.r.n. 8. Coenzyme Q10 100 mg p.o. b.i.d. 9. Metoprolol 50 mg p.o. b.i.d. 10. Losartan 25 mg a day. 11. Tramadol 50 mg p.o. q.6 hours p.r.n. ALLERGIES: AMOXICILLIN, CEPHALEXIN, ENABLEX, METFORMIN, VESICARE, TOLTERODINE, HYDRALAZINE IV. CODE STATUS: Full. PENDING AT TIME OF DISCHARGE: Nothing. DIET: Diabetic. HOSPITAL COURSE: The patient admitted with weakness, lethargy, sweats, difficulty walking. She has a history of multiple medical problems including rheumatoid arthritis, coronary artery disease, diabetes, etc. She had pyuria on UA. White count was 6.5, followup 6.4 with no left shift; hemoglobin 12.4 and 11.3. Chemistries; creatinine 2.18, BUN 40, lytes balanced, this was consistent with old studies. Blood sugar 159. Troponins 0.031, 0.021, 0.02. Urine culture unfortunately is growing mixed skin and enteric saeid. The patient has improved during her hospital stay. She is being discharged on the aforementioned antibiotic for followup with her primary care. She was seen today by Cardiology, Dr. Nava ' PA. Incidentally, she had an outpatient MRI of her lumbar spine last week per Dr. Boyd, pain doctor. This was discussed with him today. He thinks the patient is amenable to outpatient spine injections. This has been discussed with the patient and he will be calling her to make an appointment. Job ID: [id number] [facility]
[2019-08-14 16:20] VITALS: BP 130/62; TEMP 98.4
[2019-08-14] MEDS ORDERED: HumaLOG 300 UNITS/3 ML VIAL SC PRN (17:10)
[2019-08-14] MEDS ORDERED: Cipro 250 MG TAB PO SCH (20:00)
[2019-08-14] MEDS ORDERED: Insulin Glargine 50 UNITS in Pre-Filled Syringe 1 EACH SC SCH (21:00)
[2019-08-14] MEDS ORDERED: Insulin Glargine 24 UNITS in Pre-Filled Syringe 1 EACH SC SCH (21:00)
== END 2019-08-14 17:55 | disposition home or self-care (01) | DRG 690 ==
LOC: ERS 11:35 → 2NO 14:29
PROVIDERS: ADMIT Internal Medicine; ATTEND Internal Medicine
DX: N39.0 Urinary tract infection, site not specified (principal); N18.4 Chronic kidney disease, stage 4 (severe); R27.0 Ataxia, unspecified; E11.65 Type 2 diabetes mellitus with hyperglycemia; G89.29 Other chronic pain; I25.10 Atherosclerotic heart disease of native coronary artery without angina pectoris; M06.9 Rheumatoid arthritis, unspecified; M81.0 Age-related osteoporosis without current pathological fracture; E11.22 Type 2 diabetes mellitus with diabetic chronic kidney disease; E78.5 Hyperlipidemia, unspecified; Z96.652 Presence of left artificial knee joint; E83.42 Hypomagnesemia; M35.3 Polymyalgia rheumatica; I12.9 Hypertensive chronic kidney disease with stage 1 through stage 4 chronic kidney disease, or unspecified chronic kidney disease; Z79.4 Long term (current) use of insulin; Z88.1 Allergy status to other antibiotic agents; Z88.8 Allergy status to other drugs, medicaments and biological substances; Z90.710 Acquired absence of both cervix and uterus; Z88.0 Allergy status to penicillin; Z88.2 Allergy status to sulfonamides; Z98.51 Tubal ligation status; Z95.1 Presence of aortocoronary bypass graft
CPT/HCPCS: 36415; 36416; 70450; 71045; 80048; 80053; 81003; 81015; 82553; 83036; 83735; 84436; 84443; 84479; 84484; 85025; 87086; 93005; 96365; 96366; 96367; J0744; J1815; J3475; J7512

== ENCOUNTER 2020-03-21 07:25 | Outpatient (CLI) | payer MEDICARE, OTHER ==
[2020-03-21 14:06] LABS: Hemoglobin 12.1 g/dL (12.0-16.0); Mean Corpuscular HGB CONC 32.4 g/dL (32.0-36.0); Mean Corpuscular Hemoglobin 34.7 pg (27.0-31.0); Mean Platelet Volume 9.4 fL (7.4-10.4); Platelet Count 195 thou/uL (130-400); RBC Distribution Width 12.4 % (11.5-14.5); Red Blood Cell (RBC) Count 3.48 mill/uL (4.20-5.40); White Blood Cell (WBC) Count 6.1 thou/uL (4.8-10.8)
[2020-03-21 14:07] LABS: INR-International Normal Ratio 0.9; PTT 23.5 sec (22.9-36.1); Prothrombin Time 12.4 sec (12.0-14.7)
[2020-03-21 14:40] LABS: Anion Gap 20 mmol/L (10-20); BUN (Urea Nitrogen) 26 mg/dL (9.8-20.1); Calc. Creatinine Clearance 0 mL/min (70-130); Calcium 8.7 mg/dL (7.8-10.44); Carbon Dioxide 19 mmol/L (23-31); Chloride 106 mmol/L (98-107); Estimated GFR-MDRD 24; Glucose 193 mg/dL (83-110); Potassium 4.5 mmol/L (3.5-5.1); Sodium 140 mmol/L (136-145)
[2020-03-22 12:00] LABS: SARS-CoV-2 MS2 Positive; SARS-CoV-2 N Gene Negative; SARS-CoV-2 S Gene Negative; SARS-CoV-2 by NAA Not Detected (NotDetected); SARS-CoV-2 orf1ab Negative
== END 2020-03-21 07:26 | disposition home or self-care (01) ==
LOC: LABBT 07:25
PROVIDERS: ATTEND Internal Medicine Cardiovascular Disease
DX: Z01.812 Encounter for preprocedural laboratory examination (principal); Z20.828 Contact with and (suspected) exposure to other viral communicable diseases; I47.1 Supraventricular tachycardia
CPT/HCPCS: 80048; 85027; 85610; 85730; U0003; 87635

== ENCOUNTER 2020-03-25 06:10 | Day surgery (SDC) | payer MEDICARE, OTHER ==
[2020-03-21 10:21] VITALS: BMI 30.9
[2020-03-25] MEDS ORDERED: Heparin 10,000 UNITS/ 10 ML VIAL ONE (07:02)
[2020-03-25] MEDS ORDERED: Lidocaine 1% (PF) 30 ML VIAL ONE (07:06)
[2020-03-25] MEDS ORDERED: Isoproterenol 0.2 MG/1 ML AMP ONE ×2 (07:29→08:30)
[2020-03-25] MEDS ORDERED: Midazolam HCl 2 mg/2 ml Vial ONE (07:49)
[2020-03-25] MEDS ORDERED: Fentanyl 100 MCG/2 ML VIAL ONE (07:49)
[2020-03-25] MEDS ORDERED: Propofol 500 MG/50 ML VIAL ONE ×2 (07:52→09:16)
[2020-03-25] MEDS ORDERED: Meperidine HCl/PF 25 MG/ML VIAL ONE (09:43)
[2020-03-25] MEDS ORDERED: PROPOFOL 200 MG/20 ML VIAL ONE (09:53)
--- NOTE | 2020-03-25 09:59 | OP ---
DATE OF PROCEDURE: 03/25/2020 PROCEDURE PERFORMED: Electrophysiology study and radiofrequency ablation. REASON FOR PROCEDURE: Ms. Garrison is an 80-year-old woman with very frequent and also severe dizzy spells. She has preserved LV function and event monitor demonstrated episodes of narrow complex tachycardia. She is here for EP study and possible ablation. DESCRIPTION OF PROCEDURE: The patient received deep sedation by Anesthesia specialist. After adequate level of sedation achieved, the left and right femoral venous area was prepped, draped, anesthetized using subcutaneous lidocaine, and under ultrasound guidance, both femoral veins were cannulated. On the left side, a 6 and 8-Wolof sheath was used to advanced a DecaNav and an octapolar catheter to the right atrium, where it was used to obtain 3D map of the right atrium, His bundle, CS, and cavotricuspid isthmus locations were clearly marked. Following that, basic EP study was performed using octapolar catheter, pacing the right ventricle, His bundle, right atrium area as well as the left atrium via the CS was paced. Following findings were noted. Baseline rhythm was sinus rhythm at cycle length of 665 milliseconds, WA 271 milliseconds, QRS 97 milliseconds, QT 365 milliseconds, AH 191 milliseconds, HV 67 milliseconds. Sinus node recovery time was 849 milliseconds, corrected sinus node recovery time was 180 milliseconds. AV Wenckebach at baseline of 420 milliseconds. Retrograde Wenckebach was 590 milliseconds. The AV eliane ERP was measured at 600/400 milliseconds. The burst atrial pacing was performed, inducing a typical appearing atrial flutter with cycle length of 260 milliseconds. Overdrive pacing of the proximal CS noted post pacing interval very close to the tachycardia cycle length and longer cycle length was measured at the distal CS overdrive pacing. Typical isthmus dependent atrial flutter was diagnosed. Through a right femoral venous 8-Wolof sheath, a ThermoCool SFST catheter was advanced to the right atrium, cavotricuspid isthmus ablation was performed with this catheter, a total of 9 lesions delivered at 3 minutes and 26 seconds at 40 guadalupe. With this, we were able to prolong the transisthmus time to 160 milliseconds from baseline 40 milliseconds, and unilateral block was demonstrated by measuring the longest transisthmus time adjacent to the ablation line lesions. Following that burst atrial pacing did not reinduce atrial flutter, Isuprel was administered and the measurements were repeated. Burst atrial pacing on Isuprel did not reinduce arrhythmia either. At the end of the case, the cardiac silhouette did not change and the catheter was removed. Vascade closure was performed with ultrasound guidance to all three femoral venous access sites. The patient tolerated the procedure well. CONCLUSION: 1. Typical isthmus-dependent atrial flutter inducible. 2. Cavotricuspid isthmus ablation eliminated inducibility. 3. No additional atrial arrhythmias are induced on and off Isuprel. 4. Normal sinus eliane and AV eliane and His-Purkinje function, demonstrated no evidence of accessory pathway. PLAN: Monitor for recurrent arrhythmias. For now, continue aspirin for anticoagulation. If atrial fibrillation is seen, consider oral anticoagulant as well, but so far, not demonstrated. Job ID: [id number]
--- NOTE | 2020-03-26 16:13 | EKG ---
Test Reason : POST ABLATION Blood Pressure : / mmHG Vent. Rate : 080 BPM Atrial Rate : 080 BPM P-R Int : 296 ms QRS Dur : 076 ms QT Int : 376 ms P-R-T Axes : 064 041 083 degrees QTc Int : 433 ms Sinus rhythm with 1st degree A-V block Otherwise normal ECG No previous ECGs available Confirmed by CAROLE ANDREWS ([id number]) on 03/26/2020 4:13:22 PM Referred By: DANY Confirmed By:CAROLE ANDREWS
== END 2020-03-25 15:21 | disposition home or self-care (01) ==
LOC: SDC 06:10
PROVIDERS: ATTEND Internal Medicine Cardiovascular Disease
PROC: 02583ZZ Destruction of Conduction Mechanism, Percutaneous Approach (ICD-10-PCS; principal; 2020-03-25)
PROC: 02K83ZZ Map Conduction Mechanism, Percutaneous Approach (ICD-10-PCS; 2020-03-25)
PROC: 4A023FZ Measurement of Cardiac Rhythm, Percutaneous Approach (ICD-10-PCS; 2020-03-25)
PROC: 4A0234Z Measurement of Cardiac Electrical Activity, Percutaneous Approach (ICD-10-PCS; 2020-03-25)
DX: I47.1 Supraventricular tachycardia (principal); I48.3 Typical atrial flutter; M35.3 Polymyalgia rheumatica; I25.10 Atherosclerotic heart disease of native coronary artery without angina pectoris; I12.9 Hypertensive chronic kidney disease with stage 1 through stage 4 chronic kidney disease, or unspecified chronic kidney disease; E11.22 Type 2 diabetes mellitus with diabetic chronic kidney disease; N18.3 Chronic kidney disease, stage 3 (moderate); E78.5 Hyperlipidemia, unspecified; Z79.4 Long term (current) use of insulin; Z79.899 Other long term (current) drug therapy; Z88.0 Allergy status to penicillin; Z88.1 Allergy status to other antibiotic agents; Z88.2 Allergy status to sulfonamides; Z88.8 Allergy status to other drugs, medicaments and biological substances; Z95.1 Presence of aortocoronary bypass graft
CPT/HCPCS: 76942; 82962; 93005; 93613; 93621; 93623; 93653; C1730; C1732 ×2; 36416; J1644; J2001; J2175; J2250; J2704; J3010

== ENCOUNTER 2020-05-03 07:57 | Outpatient (CLI) | payer MEDICARE, OTHER ==
--- NOTE | 2020-05-03 08:49 | MMO ---
Bilateral MAMMO Bilat Screen [facility]. CLINICAL HISTORY: Patient is 80 years old and is seen for screening. The patient has no family history of breast cancer. The patient has no personal history of cancer. VIEWS: The views performed were: bilateral craniocaudal with tomosynthesis and bilateral mediolateral oblique with tomosynthesis. FILMS COMPARED: The present examination has been compared to prior imaging studies performed at [facility] on 09/24/2015, 09/25/2016, 10/06/2017 and 01/20/2019. This study has been interpreted with the assistance of computer-aided detection. MAMMOGRAM FINDINGS: There are scattered fibroglandular densities. There are stable benign appearing calcifications seen in both breasts. There are also vascular calcifications. There are no suspicious masses, suspicious calcifications, or new areas of architectural distortion. IMPRESSION: THERE IS NO MAMMOGRAPHIC EVIDENCE OF MALIGNANCY. A ROUTINE FOLLOW-UP MAMMOGRAM IN 1 YEAR IS RECOMMENDED. THE RESULTS OF THIS EXAM WERE SENT TO THE PATIENT. ACR BI-RADS Category 2 - Benign finding MAMMOGRAPHY NOTE: 1. A negative mammogram report should not delay a biopsy if a dominant of clinically suspicious mass is present. 2. Approximately 10% to 15% of breast cancers are not detected by mammography. 3. Adenosis and dense breasts may obscure an underlying neoplasm. Reported by: CARLOS WALKER MD Electonically Signed: [id number]
== END 2020-05-03 07:58 | disposition home or self-care (01) ==
LOC: BICMAMMO 07:57
PROVIDERS: ATTEND Family Medicine
DX: Z12.31 Encounter for screening mammogram for malignant neoplasm of breast (principal)
CPT/HCPCS: 77063; 77067

== ENCOUNTER 2020-11-29 06:57 | Outpatient (CLI) | payer MEDICARE, OTHER | END 2020-11-29 06:58 | disposition home or self-care (01) | LOC: BICULT 06:57 | PROVIDERS: ATTEND Physician Assistant Medical | DX: R19.7 Diarrhea, unspecified (principal); R74.8 Abnormal levels of other serum enzymes; D64.9 Anemia, unspecified | CPT/HCPCS: 93975 ==

== ENCOUNTER 2020-12-19 09:53 | Emergency (ER) | payer MEDICARE, OTHER ==
[2020-12-19 10:46] LABS: #Basophils 0.1 thou/uL (0.0-0.2); #Eosinphils 0.2 thou/uL (0.0-0.7); #Lymphocytes 1.2 thou/uL (1.20-3.40); #Monocytes 0.5 thou/uL (0.11-0.59); #Neutrophils 3.8 thou/uL (1.40-6.50); %Eosinophils 3.2 % (0.0-10.0); %Lymphocytes 20.3 % (21.0-51.0); %Monocytes 8.9 % (0.0-10.0); %Neutrophils 66.6 % (42.0-75.0); Hemoglobin 12.8 g/dL (12.0-16.0); Mean Corpuscular HGB CONC 32.5 g/dL (32.0-36.0); Mean Corpuscular Hemoglobin 34.3 pg (27.0-31.0); Mean Platelet Volume 8.7 fL (7.4-10.4); Platelet Count 217 thou/uL (130-400); RBC Distribution Width 11.6 % (11.5-14.5); Red Blood Cell (RBC) Count 3.73 mill/uL (4.20-5.40); White Blood Cell (WBC) Count 5.7 thou/uL (4.8-10.8)
[2020-12-19 11:46] LABS: Bilirubin Negative (Negative); Blood, Urine Negative (Negative); Clarity Clear (Clear); Glucose, Urine (Dipstick) 500 mg/dL (Negative); Ketone, Urine Negative (Negative); Leukocyte 250 Leu/uL (Negative); Nitrite 1+ (Negative); Protein, Urine (Dipstick) 10 mg/dL (Neg-Trace); RBC/HPF 0-3 HPF (0-3); Specific Gravity, Urine 1.021 (1.002-1.036); Squamous Epithelial None Seen HPF (0-3); Urobilinogen Normal mg/dL (Less than 2); pH, Urine 5.5 (5.0-9.0)
[2020-12-19 11:47] LABS: Bacteria/HPF 2+ HPF (None Seen)
[2020-12-19 12:54] LABS: Albumin 3.3 g/dL (3.4-4.8)
[2020-12-19 12:55] LABS: Chloride 99 mmol/L (98-107); Sodium 136 mmol/L (136-145)
[2020-12-19 12:56] LABS: Glucose 291 mg/dL (83-110); Protein, Total 7.3 g/dL (5.8-8.1)
[2020-12-19 12:58] LABS: Anion Gap 12 mmol/L (10-20); Bilirubin, Total 0.3 mg/dL (0.2-1.2); Carbon Dioxide 30 mmol/L (23-31)
[2020-12-19 12:59] LABS: Alkaline Phosphatase 226 U/L (40-110); Calc. Creatinine Clearance 0 mL/min (70-130)
[2020-12-19 13:01] LABS: AST (SGOT) 40 U/L (5-34); BUN (Urea Nitrogen) 30 mg/dL (9.8-20.1)
[2020-12-19 13:02] LABS: ALT (SGPT) 28 U/L (8-55)
[2020-12-19] MEDS ORDERED: Nitrofurantoin Macrocrystal 50 MG CAP PO SCH (13:30)
== END 2020-12-19 14:22 | disposition home or self-care (01) ==
LOC: ERS 09:53
DX: E86.0 Dehydration (principal); N30.00 Acute cystitis without hematuria; E11.9 Type 2 diabetes mellitus without complications; Z79.899 Other long term (current) drug therapy
CPT/HCPCS: 36415; 51701; 80053; 81003; 81015; 85025

== ENCOUNTER 2021-01-26 14:10 | Inpatient (IN) | payer MEDICARE, OTHER ==
[2021-01-26] MEDS ORDERED: Acetaminophen 500 MG TAB ONE (14:56)
[2021-01-26 15:29] LABS: Bilirubin Negative (Negative); Blood, Urine Negative (Negative); Clarity Clear (Clear); Glucose, Urine (Dipstick) Normal (Negative); Ketone, Urine Negative (Negative); Leukocyte 250 Leu/uL (Negative); Nitrite Negative (Negative); Protein, Urine (Dipstick) 30 mg/dL (Neg-Trace); RBC/HPF 0-3 HPF (0-3); Specific Gravity, Urine 1.022 (1.002-1.036); Squamous Epithelial 0-3 HPF (0-3); Urobilinogen Normal mg/dL (Less than 2); pH, Urine 5.5 (5.0-9.0)
[2021-01-26 15:31] LABS: Bacteria/HPF 1+ HPF (None Seen)
[2021-01-26 16:05] LABS: #Eosinphils 0.1 thou/uL (0.0-0.7); #Lymphocytes 1.2 thou/uL (1.20-3.40); #Monocytes 0.4 thou/uL (0.11-0.59); #Neutrophils 4.4 thou/uL (1.40-6.50); %Basophils 0.3 % (0.0-1.0); %Eosinophils 1.2 % (0.0-10.0); %Lymphocytes 19.4 % (21.0-51.0); %Monocytes 7.1 % (0.0-10.0); Hemoglobin 11.5 g/dL (12.0-16.0); Mean Corpuscular HGB CONC 33.5 g/dL (32.0-36.0); Mean Corpuscular Hemoglobin 35.2 pg (27.0-31.0); Platelet Count 236 thou/uL (130-400); RBC Distribution Width 12.1 % (11.5-14.5); Red Blood Cell (RBC) Count 3.28 mill/uL (4.20-5.40); White Blood Cell (WBC) Count 6.1 thou/uL (4.8-10.8)
[2021-01-26] MEDS ORDERED: cefTRIAXone\\ROCEPHIN 2 GM VIAL ONE (16:23)
[2021-01-26 16:30] LABS: ALT (SGPT) 46 U/L (8-55); AST (SGOT) 46 U/L (5-34); Albumin 3.6 g/dL (3.4-4.8); Alkaline Phosphatase 276 U/L (40-110); Anion Gap 14 mmol/L (10-20); BUN (Urea Nitrogen) 22 mg/dL (9.8-20.1); Bilirubin, Total 0.3 mg/dL (0.2-1.2); Calc. Creatinine Clearance 0 mL/min (70-130); Calcium 8.9 mg/dL (7.8-10.44); Carbon Dioxide 25 mmol/L (23-31); Chloride 97 mmol/L (98-107); Globulin 4.2 g/dL (2.4-3.5); Glucose 203 mg/dL (83-110); Potassium 4.9 mmol/L (3.5-5.1); Protein, Total 7.8 g/dL (5.8-8.1); Sodium 131 mmol/L (136-145)
[2021-01-26] MEDS ORDERED: Sodium Chloride 0.9% 1,000 ML IV SCH (19:45)
[2021-01-26] MEDS ORDERED: Acetaminophen 650 MG Suppository PR PRN (19:54)
[2021-01-26] MEDS ORDERED: Ondansetron PF 4 MG/2 ML Vial IVP PRN (19:54)
[2021-01-26] MEDS ORDERED: Insulin Regular 300 UNITS/3 ML VIAL SC PRN ×2 (19:56)
[2021-01-26] MEDS ORDERED: Dextrose 50% Abboject 50 ML SYRINGE SLOW IVP PRN (19:56)
[2021-01-26] MEDS ORDERED: Dextrose 5% in Water 1,000 ML IV PRN (19:56)
[2021-01-26 20:00] LABS: Troponin I Less than 0.010 ng/mL (< 0.028)
[2021-01-26 20:30] VITALS: BMI 34.6
[2021-01-26] MEDS ORDERED: INSULIN PUMP SC SCH (22:30)
[2021-01-26 22:45] LABS: Troponin I Less than 0.010 ng/mL (< 0.028)
[2021-01-26] MEDS ORDERED: HumaLOG 300 UNITS/3 ML VIAL SC SCH (23:15)
[2021-01-26] MEDS ORDERED: Primidone 50 MG TAB PO SCH (23:15)
[2021-01-26] MEDS: Famotidine 20 MG TAB PO SCH (23:35)
[2021-01-26] MEDS: Acetaminophen 325 MG TAB PO PRN (23:40)
[2021-01-27] MEDS: Melatonin 3 MG TAB PO PRN ×2 (00:42→21:27)
[2021-01-27] MEDS ORDERED: cefTRIAXone\\ROCEPHIN 2 GM in Sodium Chloride 0.9% 100 ML IVPB SCH (04:30)
[2021-01-27 05:06] LABS: #Basophils 0.1 thou/uL (0.0-0.2); #Eosinphils 0.2 thou/uL (0.0-0.7); #Lymphocytes 1.4 thou/uL (1.20-3.40); #Monocytes 0.4 thou/uL (0.11-0.59); #Neutrophils 3.4 thou/uL (1.40-6.50); %Basophils 1.1 % (0.0-1.0); %Eosinophils 3.2 % (0.0-10.0); %Lymphocytes 25.3 % (21.0-51.0); %Monocytes 7.9 % (0.0-10.0); %Neutrophils 62.5 % (42.0-75.0); Hemoglobin 10.9 g/dL (12.0-16.0); Mean Corpuscular HGB CONC 32.9 g/dL (32.0-36.0); Mean Corpuscular Hemoglobin 34.5 pg (27.0-31.0); Mean Platelet Volume 8.1 fL (7.4-10.4); Platelet Count 216 thou/uL (130-400); RBC Distribution Width 12.2 % (11.5-14.5); Red Blood Cell (RBC) Count 3.17 mill/uL (4.20-5.40); White Blood Cell (WBC) Count 5.5 thou/uL (4.8-10.8)
[2021-01-27 05:26] LABS: Anion Gap 12 mmol/L (10-20); BUN (Urea Nitrogen) 19 mg/dL (9.8-20.1); Calc. Creatinine Clearance 38 mL/min (70-130); Calcium 8.4 mg/dL (7.8-10.44); Carbon Dioxide 22 mmol/L (23-31); Chloride 103 mmol/L (98-107); Glucose 163 mg/dL (83-110); Potassium 4.2 mmol/L (3.5-5.1); Sodium 133 mmol/L (136-145)
[2021-01-27] MEDS: predniSONE 1 MG TAB PO SCH ×2 (08:39→16:43)
[2021-01-27] MEDS: Metoprolol Tartrate 25 MG TAB PO SCH ×2 (08:40→21:23)
[2021-01-27] MEDS: Aspirin Chewable 81 MG TAB PO SCH (08:40)
[2021-01-27] MEDS: Acetaminophen 325 MG TAB PO PRN ×3 (08:41→23:20)
[2021-01-27] MEDS: Primidone 50 MG TAB PO SCH (10:16)
[2021-01-27] MEDS: cefTRIAXone\\ROCEPHIN 1 GM in Sodium Chloride 0.9% 100 ML IVPB SCH (15:29)
[2021-01-27] MEDS ORDERED: hydrALAZINE 20 MG/ML VIAL SLOW IVP PRN (15:45)
[2021-01-27] MEDS: Ondansetron ODT 4 MG TAB PO PRN ×2 (17:50→23:33)
[2021-01-27] MEDS: hydrALAZINE 25 MG TAB PO SCH (21:22)
[2021-01-27] MEDS: Famotidine 20 MG TAB PO SCH (21:22)
[2021-01-28] MEDS: Acetaminophen 325 MG TAB PO PRN ×3 (04:17→20:21)
[2021-01-28 05:35] LABS: #Eosinphils 0.2 thou/uL (0.0-0.7); #Lymphocytes 1.6 thou/uL (1.20-3.40); #Monocytes 0.7 thou/uL (0.11-0.59); #Neutrophils 4.6 thou/uL (1.40-6.50); %Basophils 0.6 % (0.0-1.0); %Eosinophils 2.8 % (0.0-10.0); %Lymphocytes 22.3 % (21.0-51.0); %Monocytes 9.9 % (0.0-10.0); %Neutrophils 64.4 % (42.0-75.0); Hemoglobin 11.8 g/dL (12.0-16.0); Mean Corpuscular HGB CONC 32.8 g/dL (32.0-36.0); Mean Corpuscular Hemoglobin 34.5 pg (27.0-31.0); Mean Platelet Volume 8.1 fL (7.4-10.4); Platelet Count 228 thou/uL (130-400); RBC Distribution Width 12.2 % (11.5-14.5); Red Blood Cell (RBC) Count 3.42 mill/uL (4.20-5.40); White Blood Cell (WBC) Count 7.2 thou/uL (4.8-10.8)
[2021-01-28 05:44] LABS: Anion Gap 12 mmol/L (10-20); BUN (Urea Nitrogen) 14 mg/dL (9.8-20.1); Calc. Creatinine Clearance 38 mL/min (70-130); Calcium 8.7 mg/dL (7.8-10.44); Carbon Dioxide 23 mmol/L (23-31); Chloride 100 mmol/L (98-107); Glucose 126 mg/dL (83-110); Potassium 4.4 mmol/L (3.5-5.1); Sodium 131 mmol/L (136-145)
[2021-01-28] MEDS: Primidone 50 MG TAB PO SCH (08:38)
[2021-01-28] MEDS: Calcitriol 0.25 MCG CAP PO SCH (08:38)
[2021-01-28] MEDS: hydrALAZINE 25 MG TAB PO SCH ×3 (08:39→20:16)
[2021-01-28] MEDS: Aspirin Chewable 81 MG TAB PO SCH (08:39)
[2021-01-28] MEDS: predniSONE 1 MG TAB PO SCH ×2 (08:39→16:00)
[2021-01-28] MEDS: Metoprolol Tartrate 25 MG TAB PO SCH ×2 (08:39→20:17)
[2021-01-28] MEDS: HYDROcodone/Acetaminophen 5/325 mg Tablet PO PRN ×2 (13:40→17:51)
[2021-01-28] MEDS: cefTRIAXone\\ROCEPHIN 1 GM in Sodium Chloride 0.9% 100 ML IVPB SCH (15:49)
[2021-01-28] MEDS: Famotidine 20 MG TAB PO SCH (20:17)
[2021-01-28] MEDS: Ondansetron ODT 4 MG TAB PO PRN (20:17)
[2021-01-28] MEDS: Melatonin 3 MG TAB PO PRN (20:18)
[2021-01-29] MEDS: HYDROcodone/Acetaminophen 5/325 mg Tablet PO PRN ×3 (02:42→15:57)
[2021-01-29 05:34] LABS: #Eosinphils 0.2 thou/uL (0.0-0.7); #Lymphocytes 1.3 thou/uL (1.20-3.40); #Monocytes 0.8 thou/uL (0.11-0.59); %Basophils 0.7 % (0.0-1.0); %Eosinophils 3.4 % (0.0-10.0); %Lymphocytes 20.6 % (21.0-51.0); %Monocytes 12.6 % (0.0-10.0); %Neutrophils 62.7 % (42.0-75.0); Hemoglobin 10.8 g/dL (12.0-16.0); Mean Corpuscular HGB CONC 32.6 g/dL (32.0-36.0); Mean Corpuscular Hemoglobin 34.6 pg (27.0-31.0); Mean Platelet Volume 8.2 fL (7.4-10.4); Platelet Count 219 thou/uL (130-400); RBC Distribution Width 12.3 % (11.5-14.5); Red Blood Cell (RBC) Count 3.12 mill/uL (4.20-5.40); White Blood Cell (WBC) Count 6.4 thou/uL (4.8-10.8)
[2021-01-29 05:50] LABS: Anion Gap 10 mmol/L (10-20); BUN (Urea Nitrogen) 16 mg/dL (9.8-20.1); Calc. Creatinine Clearance 36 mL/min (70-130); Calcium 8.3 mg/dL (7.8-10.44); Carbon Dioxide 25 mmol/L (23-31); Chloride 101 mmol/L (98-107); Glucose 104 mg/dL (83-110); Potassium 4.5 mmol/L (3.5-5.1); Sodium 131 mmol/L (136-145)
[2021-01-29 08:01] LABS: SARS-CoV-2 PCR by NAA Not Detected (NotDetected)
[2021-01-29] MEDS: Aspirin Chewable 81 MG TAB PO SCH (08:45)
[2021-01-29] MEDS: Metoprolol Tartrate 25 MG TAB PO SCH (08:45)
[2021-01-29] MEDS: Ondansetron ODT 4 MG TAB PO PRN ×2 (08:45→15:59)
[2021-01-29] MEDS: Calcitriol 0.25 MCG CAP PO SCH (08:45)
[2021-01-29] MEDS: hydrALAZINE 25 MG TAB PO SCH ×2 (08:45→15:57)
[2021-01-29] MEDS: Primidone 50 MG TAB PO SCH (08:46)
[2021-01-29] MEDS: predniSONE 1 MG TAB PO SCH (08:46)
[2021-01-29 13:11] VITALS: TEMP 98.1
[2021-01-29] MEDS ORDERED: Evolocumab [Repatha Syringe] 140 MG/ML Syringe DT SCH (14:30)
[2021-01-29 15:58] VITALS: BP 130/60
== END 2021-01-29 16:38 | DRG 872 ==
LOC: ERS 14:10 → 2NO 17:33 → OBSVTOIN 01-27 16:31
PROVIDERS: ADMIT Internal Medicine; ATTEND Family Medicine
DX: A41.9 Sepsis, unspecified organism (principal); N30.00 Acute cystitis without hematuria; Z16.24 Resistance to multiple antibiotics; N17.9 Acute kidney failure, unspecified; E87.1 Hypo-osmolality and hyponatremia; E87.2 Acidosis; I25.810 Atherosclerosis of coronary artery bypass graft(s) without angina pectoris; N18.30 Chronic kidney disease, stage 3 unspecified; E11.22 Type 2 diabetes mellitus with diabetic chronic kidney disease; M81.0 Age-related osteoporosis without current pathological fracture; M35.3 Polymyalgia rheumatica; G25.0 Essential tremor; W19.XXXA Unspecified fall, initial encounter; M19.90 Unspecified osteoarthritis, unspecified site; Z96.652 Presence of left artificial knee joint; S09.90XA Unspecified injury of head, initial encounter; N95.2 Postmenopausal atrophic vaginitis; B96.20 Unspecified Escherichia coli [E. coli] as the cause of diseases classified elsewhere; I12.9 Hypertensive chronic kidney disease with stage 1 through stage 4 chronic kidney disease, or unspecified chronic kidney disease; D63.1 Anemia in chronic kidney disease; E86.0 Dehydration; Z95.1 Presence of aortocoronary bypass graft; Z90.710 Acquired absence of both cervix and uterus; Y92.008 Other place in unspecified non-institutional (private) residence as the place of occurrence of the external cause; Z88.0 Allergy status to penicillin; Z88.8 Allergy status to other drugs, medicaments and biological substances; Z88.1 Allergy status to other antibiotic agents; Z88.5 Allergy status to narcotic agent; Z79.82 Long term (current) use of aspirin; Z79.4 Long term (current) use of insulin; Z79.899 Other long term (current) drug therapy
CPT/HCPCS: 36415; 36416; 51701; 70450; 71045; 72125; 76770; 80048; 80053; 81003; 81015; 85025; 87086; 93005; 94760; 96365; 96376; G0378; J0360; J0696; J3490; J7512; Q0162; U0003; U0005

== ENCOUNTER 2021-05-06 15:04 | Outpatient (CLI) | payer MEDICARE | END 2021-05-06 15:05 | disposition home or self-care (01) | LOC: BICMAMMO 15:04 | PROVIDERS: ATTEND Family Medicine | DX: Z12.31 Encounter for screening mammogram for malignant neoplasm of breast (principal) | CPT/HCPCS: 77063; 77067 ==